=== PATIENT | male | born 1955 | race Caucasian/White ===

== ENCOUNTER 2019-09-24 13:05 | Outpatient (REF) | payer MEDICARE, BC, SELFPAY ==
[2019-09-24 18:54] LABS: Abs Immature Grans 0.01 k/cumm (0.0-0.09); Absolute Basophil Count 0.05 k/cumm (0.0-0.2); Absolute Eosinophil Count 0.19 k/cumm (0.0-0.7); Absolute Lymphocyte Count 1.88 k/cumm (1.2-3.4); Absolute Neutrophil Count 4.57 k/cumm (1.2-6.7); Basophils % 0.7; Eosinophils % 2.6; HCT 45.9 % (40.0-50.0); HGB 15.5 g/dL (13.5-17.5); Immature Grans % 0.1 %; Lymphocytes % 25.8; Mean Corp. HGB Concentration 33.8 g/dL (32.0-36.0); Mean Corpuscular Hemoglobin 30.2 pg (27.0-33.0); Mean Corpuscular Volume 89.5 fL (80-95); Mean Platelet Volume 9.7 fL (8.0-11.0); Monocytes % 8.2; Neutrophils % 62.6; Platelet Count 272 x1000/uL (130-400); RBC 5.13 m/cumm (4.50-6.00); RBC Distribution Width 13.2 % (11.8-14.1)
[2019-09-24 19:11] LABS: Anion Gap 6.7 mmol/L (3-11); BUN 13 mg/dL (7-18); CO2 30.3 mmol/L (21.0-32.0); CREATININE 1.11 mg/dL (0.70-1.30); Calcium 8.7 mg/dL (8.5-10.1); Chloride 101 mmol/L (98-107); Glucose 93 mg/dL (74-106); Potassium 4.5 mmol/L (3.5-5.1); Sodium 138 mmol/L (136-145)
[2019-09-26 10:21] LABS: PSA, Diagnostic 3.5 ng/mL (0.0-4.5)
== END 2019-09-24 13:25 ==
LOC: NCHCN 13:05
PROVIDERS: PCP Physician Assistant Medical; Visit Provider Physician Assistant Medical
DX: R35.0 Frequency of micturition (principal)
CPT/HCPCS: 80048; 84153; 85025; 87086

== ENCOUNTER → 2022-01-24 02:04 | Outpatient (CLI) | payer MEDICARE, BC, SELFPAY ==
--- NOTE | 2022-01-24 | DI.RAD_ITS ---
Exam(s) XR CERVICAL SPINE COMP 4-5V EXAM: XR CERVICAL SPINE COMP 4-5V CLINICAL HISTORY: NUMBNESS AND TINGLING RT ARM, R20.2. TECHNIQUE: 2D digital imaging was performed. COMPARISON: No exams were available for comparison FINDINGS: Seven views: No evidence of fracture or listhesis. No offset of the spinal laminar line. Main finding here is mo derate narrowing of the C6-7 disc space and mild narrowing of the C5-6 disc space. No large Luschka joint osteophytes. No cervical ribs. Mild facet joint degenerative changes. Bone density normal. IMPRESSION: Disc level findings at C6-7 and C5-6, as described above DATA REPOSITORY: RADIATION DOSE DELIVERED:
== END ==
PROVIDERS: PCP Physician Assistant Medical; Visit Provider Physician Assistant Medical
DX: M48.02 Spinal stenosis, cervical region (principal)
CPT/HCPCS: 72050

== ENCOUNTER 2022-05-10 16:50 | Outpatient (REF) | payer MEDICARE, BC, SELFPAY ==
[2022-05-10 19:24] LABS: ALT 32 U/L (16-63); AST 27 U/L (15-37); Albumin 3.9 g/dL (3.4-5.0); Alkaline Phosphatase 73 U/L (46-116); Anion Gap 8.2 mmol/L (3-11); BUN 16 mg/dL (7-18); Bilirubin, Total 0.3 mg/dL (0.2-1.0); CO2 27.8 mmol/L (21.0-32.0); Calculated LDL 96 mg/dL (<100); Chloride 102 mmol/L (98-107); Cholesterol 213 mg/dL (<200); Estimated GFR 82.49 (mL/min/1.73m2); Glucose 89 mg/dL (74-106); HDL Cholesterol 48 mg/dL (40-60); Potassium 3.9 mmol/L (3.5-5.1); Sodium 138 mmol/L (136-145); Total Protein 7.7 g/dL (6.4-8.2); Triglyceride 345 mg/dL (<150)
== END 2022-05-10 16:51 | disposition home or self-care (01) ==
LOC: NCHCN 16:50
PROVIDERS: PCP Physician Assistant Medical; Visit Provider Physician Assistant Medical
DX: Z13.89 Encounter for screening for other disorder (principal)
CPT/HCPCS: 80053; 80061

== ENCOUNTER 2022-08-16 11:29 | Outpatient (REF) | payer MEDICARE, BC, SELFPAY ==
[2022-08-16 16:37] LABS: ALT 39 U/L (16-63); AST 26 U/L (15-37); Albumin 3.9 g/dL (3.4-5.0); Alkaline Phosphatase 68 U/L (46-116); Anion Gap 7.1 mmol/L (3-11); BUN 16 mg/dL (7-18); Bilirubin, Total 0.5 mg/dL (0.2-1.0); CO2 28.9 mmol/L (21.0-32.0); Calcium 9.2 mg/dL (8.5-10.1); Calculated LDL 81 mg/dL (<100); Chloride 104 mmol/L (98-107); Cholesterol 155 mg/dL (<200); Estimated GFR 81.98 (mL/min/1.73m2); Glucose 111 mg/dL (74-106); HDL Cholesterol 53 mg/dL (40-60); Potassium 4.3 mmol/L (3.5-5.1); Sodium 140 mmol/L (136-145); Total Protein 7.4 g/dL (6.4-8.2); Triglyceride 108 mg/dL (<150)
== END 2022-08-16 11:30 | disposition home or self-care (01) ==
LOC: NCHCN 11:29
PROVIDERS: PCP Physician Assistant Medical; Visit Provider Physician Assistant Medical
DX: E78.5 Hyperlipidemia, unspecified (principal)
CPT/HCPCS: 80053; 80061

== ENCOUNTER → 2024-04-29 09:47 | Outpatient (BNVA) | payer MEDICARE, BC, SELFPAY | PROVIDERS: PCP Physician Assistant Medical; Referring Provider Physician Assistant Medical; Visit Provider Surgery | DX: K40.90 Unilateral inguinal hernia, without obstruction or gangrene, not specified as recurrent (principal); D01.3 Carcinoma in situ of anus and anal canal; K21.9 Gastro-esophageal reflux disease without esophagitis | CPT/HCPCS: 99203 ==

== ENCOUNTER 2024-04-29 13:10 | Outpatient (CLI) | payer MEDICARE, BC, SELFPAY ==
[2024-04-29 10:58] LABS: Abs Immature Grans 0.01 10^3/uL (0.0-0.06); Absolute Basophil Count 0.07 10^3/uL (0.0-0.2); Absolute Eosinophil Count 0.21 10^3/uL (0.0-0.7); Absolute Monocyte Count 0.47 10^3/uL (0.1-0.8); Absolute Neutrophil Count 2.33 10^3/uL (1.2-6.7); Basophils % 1.3 %; HCT 45.5 % (40.0-50.0); HGB 15.3 g/dL (13.5-17.5); Immature Grans % 0.2 %; Lymphocytes % 40.5 %; MCH 30.1 pg (27.0-33.0); MCHC 33.6 % (32.0-36.0); MCV 89 fL (80-95); MPV 8.9 fL (8.0-11.0); Monocytes % 9.1 %; Neutrophils % 44.9 %; Platelet Count 266 10^3/uL (130-400); RBC 5.09 10^6/uL (4.36-5.78); RDW 12.7 % (11.8-14.1); WBC 5.19 10^3/uL (4.4-10.8)
[2024-04-29 11:39] LABS: ALT 54 U/L (16-63); AST 32 U/L (15-37); Albumin 3.7 g/dL (3.4-5.0); Alkaline Phosphatase 74 U/L (46-116); Anion Gap 7.8 mmol/L (3-11); BUN 13 mg/dL (7-18); Bilirubin, Total 0.46 mg/dL (0.2-1.0); CO2 29.2 mmol/L (21.0-32.0); CREATININE 0.9 mg/dL (0.70-1.30); Calcium 8.9 mg/dL (8.5-10.1); Chloride 104 mmol/L (98-107); Estimated GFR 92.45 (mL/min/1.73m2); Glucose 103 mg/dL (74-106); Potassium 4.5 mmol/L (3.5-5.1); Sodium 141 mmol/L (136-145); Total Protein 7.5 g/dL (6.4-8.2)
--- OUTSIDE RECORDS SUMMARY | 2024-04-29 13:12 | XMS_ITS | Encounter Summary ---
Author Organization [facility] [place] [address] Care Team Providers Care Dye Reel Operator Helper Name Role Phone Pattie Acosta Primary Care Provider [phone] Reason for Visit * Reason Comments Medication Refill Encounter Details Date Type Department Care Team (Late st Contact Info) Description 06/25/2023 [address] [facility] [address] [place] [id number] Gary Kasper MD [address] [facility] [address] Rosacea Social History Tobacco Use Types Packs/Day Years Used Date Smoking Tobacco: Former Cigarettes Q uit: 2002 Smokeless Tobacco: Never Comments:Quit appox 12 yrs a go Alcohol Use Standard Drinks/Week Comments Yes 1 (1 standard drink = 0.6 oz pur e alcohol) Sex and Gender Information Value Date Recorded Sex Assigned at Not on file Gender Identity Not on file Sexual Orientation Not on file documented as of this encounter Plan of Treatment Upcoming Encounters Date Type Department Care Team (Late st Contact Info) Description 10/18/2024 4:30 PM EDT Office Visit Dermatology at [facility] [address] [place] [address] Gary Kasper MD [address] [place] [address] documented as of this encounter Visit Diagnoses Diagnosis Rosacea documented in this encounter Care Teams Dye Reel Operator Helper Relationship Specialty Start Date End Date Pattie Acosta PA [address] [place] [address] PCP - General Family Medicine 01/25/21 documented as of this encounter
--- OUTSIDE RECORDS SUMMARY | 2024-04-29 13:12 | XMS_ITS | Encounter Summary ---
Author Organization [facility] Address [address] [place] [address] Care Team Providers Care Striping Machine Operator Name Role Phone Hany Foote MD Primary Care Provider [phone] Encounter Details Date Type Department Care Team (Late st Contact Info) Description 07/14/2015 Results Only [facility] [phone] Asael Parada MD [address] [place] [phone] Social History Tobacco Use Types Packs/Day Years Used Date Smoking Tobacco: Never Assessed Sex and Gender Information Value Date Recorded Sex Assigned at Not on file Legal Sex Male 18:31 EST Gender Identity Not on file Sexual Orientation Not on file documented as of this encounter Plan of Treatment Not on file documented as of this encounter Procedures Procedure Name Priority Date/Time Associated Diagnosis Comments PAP TEST- RESULT ONLY Routine 07/13/2015 0:00 EST documented in this encounter Results * PAP TEST- RESULT ONLY (07/13/2015 0:00 EST) Pathology Report: CYTOPATHOLOGY REPORT Reports generated via electronic interface contain original data; however they are lacking the format of the original report. Caution should be taken when reading/interpret ing unformatted reports. Name: ? ED CARRASCO ? Accession #: ? [id number] : ? 1955 (Age: 60) ??M ?Collect Date: ? 07/13/2015 Location: ? [facility] ? Receive Date: ? 07/14/2015 Provider: ?ASAEL PARADA MD Copy to: ? Specimen/Source: ?Pap Test, Anal, ThinPrep with manual evaluation Last Menstrual Period: ? Other: ? Additional clinical information: Anal and Rectal Swab ? SPECIMEN ADEQUACY ? Satisfactory for Evaluation - transformation zone component present GENERAL CATEGORIZATION ? Epithelial Cell Abnormality INTERPRETATION ? Squamous Cell Abnormality - Atypical squamous cells, undetermined significance (ASC-US). ? Document reviewed and electronically signed by: ? SHELLIE JASSO MD ? Report Date: ??07/16/2015 17:06 End of Report [facility] 07/13/2015 07/14/2015 us Asael Parada MD PATHOLOGY ORDERABLES Final Result Performing Organization Address [facility]/State/[facility] Co de Phone Number [facility] [address] [place] [address] documented in this encounter Visit Diagnoses Not on filedocumented in this encounter Care Teams Striping Machine Operator Relationship Specialty Start Date End Date Hany Foote MD [address] [place] [address] PCP - General 12/25/12 07/14/15 documented as of this encounter
--- OUTSIDE RECORDS SUMMARY | 2024-04-29 13:12 | XMS_ITS | Encounter Summary ---
Author Organization [facility] Address [address] [place] [address] Care Team Providers Care Investigator Claims Name Role Phone Unavailable Primary Care Provider Unavailabl e Encounter Details Date Type Department Care Team (Late st Contact Info) Description 12/30/2003 Results Only [facility] [address] [place] [address] Jame Joyce MD [address] [place] [address] Social History Tobacco Use Types Packs/Day Years [...] Procedure Name Priority Date/Time Associated Diagnosis Comments SURGICAL PATHOLOGY Routine 12/30/2003 0:00 EDT documented in this encounter Results * SURGICAL PATHOLOGY (12/30/2003 0:00 EDT) Pathology Report: SURGICAL PATHOLOGY REPORT Reports generated via electronic interface contain original data; however they are lacking the format of the original report. Caution should be taken when reading/interpreti ng unformatted reports. Name: ? ED CARRASCO ? Accession #: ? [id number] ? : ? 1955 (Age: 48) ??M ? Collect Date: ? 12/30/2003 ? Location: ? [facility] ? Receive Date: ? 12/30/2003 ? Provider: KAY JOYCE MD Copy to: MAZIN LANDRY MD ? Final Pathologic Diagnosis: ? Anal verge, clinically internal hemorrhoid, biopsies: 1. 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 ? - No definite invasion identified. ??See comment. 2. ?Focal mild acute inflammation. 3. ?No definite hemorrhoid identified. Comment: ? The biopsy material shows dysplastic squamous mucosa with a papillary architecture. ??The biopsy material is very superficial and the base of the lesion cannot be assessed in this specimen. ??This case was reviewed by Dr. Mansoor Robb who concurs with the final diagnosis. ??(Dr. Buckley)/[facility] Document reviewed and electronically signed by: MANSOOR BUCKLEY MD Report ??Date: 12/31/2003 17:37 By the signature above, the attending physician certifies that he/she has personally conducted a gross and/or microscopic examination of the described specimens and rendered or confirmed the above diagnosis. Specimen(s) Received: ? Int hemorrhoid @ anal verge Clinical History: ? Diverticulitis Gross Description: ? Received in Hollande's fixative labelled Carrasco and internal hemorrhoid at anal verge are two johnson-pink irregular soft tissue fragments measuring 0.3 x 0.2 x 0.1 cm and 0.3 x 0.3 x 0.3 cm. ??The specimen is entirely submitted in one cassette. (Cheyanne Concepcion)/[facility] End of Report [facility] 12/30/2003 12/30/2003 15: 17 EDT us Jame Joyce MD PATHOLOGY ORDERABLES Final Res ult [facility] [address] [place] [address] documented in this encounter Visit Diagnoses Not on filedocumented in this encounter
--- OUTSIDE RECORDS SUMMARY | 2024-04-29 13:12 | XMS_ITS | Encounter Summary ---
Author Organization [facility] Address [address] [place] [address] Care Team Providers Care Depalletizer Operator Name Role Phone Unavailable Primary Care Provider Unavailabl e Encounter Details Date Type Department Care Team (Late st Contact Info) Description 11/07/2002 Results Only [facility] [address] [place] [address] Hany Foote MD [address] [place] [address] Social History Tobacco Use Types Packs/Day Years [...] Date/Time Associated Diagnosis Comments SURGICAL PATHOLOGY Routine 11/07/2002 0:00 EDT documented in this encounter Results * SURGICAL PATHOLOGY (11/07/2002 0:00 EDT) Pathology Report: SURGICAL PATHOLOGY REPORT Reports generated via electronic interface contain original data; however they are lacking the format of the original report. Caution should be taken when reading/interpreti ng unformatted reports. Name: ? ED CARRASCO ? Accession #: ? [id number] ? : ? 1955 (Age: 47) ??M ? Collect Date: ? 11/07/2002 ? Location: ? [facility] ? Receive Date: ? 11/08/2002 ? Provider: HANY FOOTE MD Copy to: BILL EMERSON MD ? Final Pathologic Diagnosis: ? Skin of neck, left, shave biopsy: - Seborrheic keratosis, pigmented. Document reviewed and electronically signed by: Hola Castro MD Report ??Date: 11/12/2002 14:28 By the signature above, the attending physician certifies that he/she has personally conducted a gross and/or microscopic examination of the described specimens and rendered or confirmed the above diagnosis. Specimen(s) Received: ? Lesion left neck ??new pigmented, smooth, round lesion Clinical History: ? Benign nevus; ? melanoma Gross Description: ? Received in formalin labelled Carrasco and mole L neck is a 0.4 x 0.3 x 0.1 cm shave biopsy of a black macule. The specimen is bisected and submitted entirely in one cassette. ??(Dr. Crater)/[facility] End of Report [facility] 11/07/2002 11/08/2002 15: 15 EDT us Hany Foote MD PATHOLOGY ORDERABLES Final Res ult [facility] [address] [place] [address] documented in this encounter Visit Diagnoses Not on filedocumented in this encounter
--- OUTSIDE RECORDS SUMMARY | 2024-04-29 13:12 | XMS_ITS | Referral Summary ---
Author Organization [facility] Address [address] [place] [address] Care Team Providers Care Product Manager Name Role Phone None, Provider Primary Care Provider Unavailabl e Social History Tobacco Use Types Packs/Day Years Used Date Smoking Tobacco: Never Assessed Sex and Gender Information Value Date Recorded Sex Assigned at Not on file Legal Sex Male 18:31 EST Gender Identity Not on file Sexual Orientation Not on file Plan of Treatment Not on file Care Teams Product Manager Relationship Specialty Start Date End Date None, Provider PCP - General 07/17/15
--- OUTSIDE RECORDS SUMMARY | 2024-04-29 13:12 | XMS_ITS | Encounter Summary ---
Author Organization [facility] Address [address] [place] [address] Care Team Providers Care Street And Building Decorator Name Role Phone Unavailable Primary Care Provider Unavailabl e Encounter Details Date Type Department Care Team (Late st Contact Info) Description 12/24/2012 Results Only [facility] ([facility]) [address] [place], [place] [address] Kuldeep Vegas MD [address] [place] [address] Social History Tobacco Use Types Packs/Day Years [...] Date/Time Associated Diagnosis Comments SURGICAL PATHOLOGY Routine 12/24/2012 20 :22 EDT documented in this encounter Results * SURGICAL PATHOLOGY (12/24/2012 20:22 EDT) Pathology Report: SURGICAL PATHOLOGY REPORT Reports generated via electronic interface contain original data; however they are lacking the format of the original report. Caution should be taken when reading/interpreti ng unformatted reports. Name: ? ED CARRASCO ? Accession #: ? [id number] ? : ? 1955 (Age: 57) ??M ? Collect Date: ? 12/24/2012 ? Location: ? [facility] ? Receive Date: ? 12/24/2012 ? Provider: KULDEEP VEGAS MD Copy to: MAZIN LANDRY MD ? Final Pathologic Diagnosis: ? A. COLON, CECUM, POLYP, POLYPECTOMY: - ??Polypoid colonic mucosa with prominent lymphoid aggregate. See comment. B. COLON, ASCENDING, POLYP, POLYPECTOMY: - ??Tubular adenoma. C. COLON, SIGMOID, POLYPS, POLYPECTOMIES: - ??Hyperplastic polyps. Comment: ? Deeper sections are examined on blocks (A) and (B). Document reviewed and electronically signed by: JONNY CORRALES MD Report ??Date: 12/27/2012 16:39 By the signature above, the attending physician certifies that he/she has personally conducted a gross and/or microscopic examination of the described specimens and rendered or confirmed the above diagnosis. Specimen(s) Received: A. ??Cecal polyp (#1) B. ??Ascending colon polyp (#2) C. ??Sigmoid polyps x7 (#3) Clinical History: Screen Gross Description: A. ? Received in formalin labelled with proper patient identification (initials C, S) and 1. cecal polyp is a johnson-pink irregular soft tissue fragment measuring 0.5 x 0.2 x 0.2 cm. ??The specimen is entirely as A1. B. ? Received in formalin labelled with proper patient identification (initials C, S) and 2. ascending colon polyp is a johnson-pink irregular soft tissue fragment measuring 0.4 x 0.3 x 0.2 cm. ??The specimen is entirely submitted as B1. C. ? Received in formalin labelled with proper patient identification (initials C, S) and 3. sigmoid polyps x7 are seven johnson-pink irregular soft tissue fragments ranging from 0.3 x 0.2 x 0.1 cm to 0.7 x 0.3 x 0.1 cm. ??The specimen is entirely submitted as C1-C3. [place] Bailey 12/25/2012 09:05 AM End of Report [facility] 12/24/2012 20:2 2 EDT 12/24/2012 20:22 EDT us Kuldeep Vegas MD PATHOLOGY ORDERABLES Final Resul t [facility] [address] [place] [address] documented in this encounter Visit Diagnoses Not on filedocumented in this encounter
--- OUTSIDE RECORDS SUMMARY | 2024-04-29 13:12 | XMS_ITS | Clinical Summary ---
Author Organization [facility] [place] [address] Care Team Providers Care Weatherization And Housing Inspector Name Role Phone Pattie Acosta Primary Care Provider [phone] Allergies Active Allergy Reactions Criticality Noted Date Comments Oxycodone-Acetaminophen Nausea Only 04/30/2012 Sulfa (Sulfonamide Antibiotics) Other (See Comments) 04/25/2011 swelling Tamsulosin Other (See Comments) 02/03/2020 Lightheadedness Hydrocodone-Acetaminoph en Nausea And Vomiting Medium 07/15/2015 Medications Medication Sig Dispensed Refills Start Date End Date Status multivitamin (THERAGRAN) tablet Take 1 tablet by mouth daily. Active aspirin 81 mg Tablet, Delayed Release (E.C.) Take 81 mg by mouth daily. Active buPROPion SR (Wellbutrin SR) 200 mg tablet sustained-release 12 hr Take 200 mg by mouth 2 times daily. Active doxycycline (Vibramycin) 50 mg capsuleIndications:R osacea Take 1 capsule po daily on a full stomach and with a glass of water and do not lay down for 30 min. 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 Overview (02/03/2020): Added automatically from request for surgery [id number] Seborrheic dermatitis 11/23/2015 History of melanoma in situ 11/23/2015 Psoriasis 11/23/2015 Neck mass 2015 Acne rosacea 09/15/2014 History of atypical nevus 04/30/2012 Atypical moles 04/25/2011 Overview (03/16/2012): Deactivated Dx replaced via utility Rosacea 04/25/2011 Family History Medical History Relation Comments Heart Disease Mother Diabetes Other Relation Status Comments Mother Other Social History Tobacco Use Types Packs/Day Years [...] on file Sexual Orientation Not on file Last Filed Vital Signs Vital Sign Reading Time Taken Comments Blood Pressure 124/78 02/19/2020 9:24 AM EDT Pulse 64 02/19/2020 9:24 AM EDT Temperature 36 ??C (96.8 ??F) 02/19/2020 8:49 AM EDT Respiratory Rate 20 02/19/2020 9:24 AM EDT Oxygen Saturation 98% 02/19/2020 9:01 AM EDT Inhaled Oxygen Concentration - - Weight 79.4 kg (175 lb) 02/19/2020 7:15 AM EDT Height 175.3 cm (5' 9) 02/19/2020 7:15 AM EDT Body Mass Index 25.84 02/19/2020 7:15 AM EDT Plan of Treatment Upcoming Encounters Date Type Department Care Team (Late st Contact Info) Description 10/18/2024 4:30 PM EDT Office Visit Dermatology at [facility] [address] [place] [id number] Gary Kasper MD [address] [facility] [place] [address] Health Maintenance Due Date Last Done Comments CT Colonography 1955 FIT DNA 1955 FIT 1955 Sigmoidoscopy 1955 Hepatitis C Screening 1972 Lipid Screening 1972 Tetanus/Diphtheria/Pertussis Vaccines (1 - Tdap) 1973 Zoster vaccine (1 of 2) 2004 AAA Screen 2019 Pneumoccocal Vaccine: 65+ (1 of 1 - PCV) 2019 Covid-19 Vaccine (1 - season) 2024 Influenza (Flu) vaccine (1 o f 1 - Influenza standard series) 02/18/2024 Colonoscopy 03/05/2028 03/05/2018, 03/05/2018 Colorectal Cancer Screening 03/05/2028 Sigmoidoscopy (10 year) with FIT yearly 03/05/2028 0 03/05/2018, 03/05/2018 Medical Devices Implanted Type Area Image Assembler Device Identifier Shelf Expiration Date Model / Serial / Lot Urolift Implanted:Qty: 6 on 02/19/2020 by Nas Gutierres MD at [facility] N/A: Urethra [id number] / / [id number] Description:Manufactured by [employer]-Match Procedures Procedure Name Priority Date/Time Associated Diagnosis Comments COLONOSCOPY Routine 03/05/2018 9:43 AM EDT from Last 3 Months or Most Recently Relevant to Health Maintenance Results * COLONOSCOPY (03/05/2018 9:43 AM EDT) COLONOSCOPY [facility] Procedure Date: 03/05/2018 9:43 AM ? Patient Name: Ed Carrasco ? Date of : 1955 ? Age: 62 ? Order #: [id number] ? Instrument Name: [id number] ? Procedure: ? Colonoscopy Indications: ? Follow-up for history of adenomatous ? polyps in the colon Providers: ? Ed Shah MD, Sherri Marte, ? Beth Garza Referring : ?NELSON Bull Medicines: ? Midazolam 4 mg IV, Fentanyl 200 ? micrograms IV Complications: ? No immediate complications. Procedure: ? The procedure, indications, benefits, ? risks and alternatives were explained ? to the patient. Specifically ? discussed were potential ? complications including, but not ? limited to, bleeding, perforation, ? infection, missing a cancer, and ? adverse medication reactions. The ? patient was placed in the left ? lateral decubitus position, and a ? digital rectal exam was performed. ? The Colonoscope was inserted in the ? anus and under direct visualization, ? advanced to the terminal ileum. ? Careful inspection was made as the ? colonoscope was withdrawn. The ? colonoscopy was performed without ? difficulty. The patient tolerated the ? procedure well. The quality of the ? bowel preparation was evaluated using ? the BBPS ([place] Bowel Preparation ? Scale) with scores of: Right Colon = ? 3, Transverse Colon = 3 and Left ? Colon = 3 (entire mucosa seen well ? with no residual staining, small ? fragments of stool or opaque liquid). ? The total BBPS score equals 9. Scope ? withdrawal time was 13 minutes. ? Findings: ? The perianal and digital rectal examinations were ? normal. ? Multiple small and large-mouthed diverticula were ? found in the sigmoid colon, descending colon, ? transverse colon and ascending colon. ? The terminal ileum appeared normal. ? A 6 mm polyp was found in the rectum. The polyp was ? flat. The polyp was removed with a cold snare. ? Resection and retrieval were complete. ? Internal hemorrhoids were found during retroflexion. ? The hemorrhoids were medium-sized. ? Moderate Sedation: ? I was present during the intraservice time as ? documented by the sedation RN. Impression: ?- Diverticulosis in the sigmoid ? colon, in the descending colon, in ? the transverse colon and in the ? ascending colon. ? - The examined portion of the ileum ? was normal. ? - One 6 mm polyp in the rectum, ? removed with a cold snare. Resected ? and retrieved. ? - Internal hemorrhoids. Recommendation: ?- Await pathology results. ? Attending Participation: ? I personally performed the entire procedure. ? _ Ed Shah MD 03/05/2018 10:39:04 AM This report has been signed electronically. Number of Addenda: 0 Note Initiated On: 03/05/2018 9:43 AM PROVATION 03/05/2018 9:43 AM EDT Unknown GENERAL SURGICAL ORD ERABLES PROVATION from Last 3 Months or Most Recently Relevant to Health Maintenance Advance Directives Documents on File Type Date Recorded Patient Sales Correspondence Clerk Expl anation Advance Directives and Livin g Will 09/01/2015 2:13 PM * Full Code (Latest Code Status on File) Date Activated Date Inactivated Comments 08/31/2015 8:10 AM 08/31/2015 2:07 PM Question Answer Comments Does patient have capacity to make decision: Yes * Full Code Date Activated Date Inactivated Comments 07/15/2015 2:00 PM 07/16/2015 4:34 AM Question Answer Comments Does patient have capacity to make decision: Yes Healthcare Agents on File Name Relationship Healthcare Agent Relationshi p Communication Wan Carrasco Sibling Health Care Agent Son Carrasco Sibling First Alternate Health Care Agent Care Teams Weatherization And Housing Inspector Relationship Specialty Start Date End Date Pattie Acosta PA [address] [place] [address] PCP - General Family Medicine 01/25/21
--- OUTSIDE RECORDS SUMMARY | 2024-04-29 13:12 | XMS_ITS | Encounter Summary ---
[facility] [place] [address] Care Team Providers Care Sales Officer Name Role Phone Pattie Acosta Primary Care Provider +1- [phone] Reason for Visit * Reason Onset Date Comments Medication Refill 06/29/2023 Encounter Details Date Type Department Care Team (Late st Contact Info) Description 06/29/2023 Refill Dermatology at [facility] [address] [place] [address] Gary Kaspre MD [address] [facility] [place] [address] Rosacea Social History Tobacco Use Types Packs/Day [...] 4:30 PM EDT Office Visit Dermatology at [facility] [address] [place] [address] Gary Kasper MD [address] [facility] [place] [address] documented as of this encounter Visit Diagnoses Diagnosis Rosacea documented in this encounter Care Teams Sales Officer Relationship Specialty Start Date End Date Pattie Acosta PA [address] [place] [address] PCP - General Family Medicine 01/25/21 documented as of this encounter
--- OUTSIDE RECORDS SUMMARY | 2024-04-29 13:12 | XMS_ITS | Encounter Summary ---
[place] [address] Care Team Providers Care Warranty Manager Name Role Phone Pattie Acosta Primary Care Provider +1- [phone] Encounter Details Date Type Department Care Team (Late st Contact Info) Description 06/29/2023 Telephone Dermatology at [facility] [address] [place] [address] Gary Kasper MD [address] [facility] [address] Social History Tobacco Use Types Packs/Day Years [...] on file documented as of this encounter Miscellaneous Notes * Telephone Encounter - Fannie Moore - 06/29/2023 1:22 PM EST Sajan called today stating that there is an issue with his doxycycline rx at [facility] in [facility]. The pharmacy is telling him that he has no refills, although the rx was sent on 02/27 with 6 refills. Please f/u with [facility] to see if rx needs to be resent. documented in this encounter Plan of Treatment Upcoming Encounters Date Type Department Care Team (Late st Contact Info) Description 10/18/2024 4:30 PM EDT Office Visit Dermatology at [facility] [address] [place] [address] Gary Kasper MD [address] [facility] [address] documented as of this encounter Visit Diagnoses Not on filedocumented in this encounter Care Teams Warranty Manager Relationship Specialty Start Date End Date Pattie Acosta PA [address] [place] [address] PCP - General Family Medicine 01/25/21 documented as of this encounter
--- OUTSIDE RECORDS SUMMARY | 2024-04-29 13:12 | XMS_ITS | Encounter Summary ---
Author Organization [facility] [place] [address] Care Team Providers Care Filler Block Inserter Remover Name Role Phone Pattie Acosta Primary Care Provider +1- [phone] Encounter Details Date Type Department Care Team (Late st Contact Info) Description 02/27/2023 3:30 PM EDT Office Visit Dermatology at [facility] [address] [place] [address] Gary Kasper MD [address] [facility] [place] [address] Rosacea; Seborrheic dermatitis; Solar lentigo; Seborrheic keratosis; Herrera angioma; Multiple benign melanocytic nevi of both upper extremities, both lower extremities, and trunk; Sebaceous hyperplasia of face; History of squamous cell carcinoma of skin; History of melanoma in situ Social History Tobacco Use Types Packs/Day Years [...] on file documented as of this encounter Progress Notes * Gary Kasper MD - 02/27/2023 3:30 PM EDT Images from the original note were not included. DEPARTMENT OF DERMATOLOGY Medical Dermatology Clinic Provider: Gary Kasper MD FAAD at Dermatology at [facility] Patient's preferred name Ed Preferred contact method for results [x] with detailed results? 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 BCC -- [place] [] cryotherapy [] efudex [] PDT [] Other Relevant Medications [] Immunosuppression [] Transplant [] Oncogenic medication [] Nicotinamide 500mg po bid Rosacea Curr: doxycycline 50mg daily Prev: Sulfacet (blistered his forehead), Metrogel, Hydrocortisone 1%, Clindamycin, Metronidazole 500mg BID x 10 days, Ketoconazole 2% cream). 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 Last seen 05/10/2022. History of Present Illness: Ed Carrasco is 67 y.o. and here for the following: Requests skin cancer screening. No suspicious lesions History of rosacea currently controlled with doxycycline 50mg po daily. Tolerating well. Requests refill. No known recurrence of previous skin cancer. Review of Systems: Significant for no pertinent and acute changes in constitutional, other skin, GI, musculoskeletal systems upon specific queries. Medications: Reviewed in eD-H Allergies: Reviewed in eD-H Skin Examination Standby: Tanika Noonan RN Well developed, well-nourished in no apparent distress, alert and oriented to time, person, place and situation. Patient was asked to disrobe to the level of comfort. Examination of the skin of the head - including the scalp, face, ears, eyelids, nose, lips, tongue,oral/conjunctival mucosa - neck, chest, abdomen, back, axillae, buttocks, pubic area, upper and lower extremities, including the nail plates, significant for the following. Exam Findings/Assessment/Plan Rosacea [place] to red lesions on the cheeks and nose. Previously failed multiple topical and oral regimens. Continue doxycycline Discussed clinical recommendation as above.. Discussed major risks of doxycycline including sun sensitivity and GI upset. Answered all questions. Joint decision to continue doxycycline. Continue doxycycline 50 mg p.o. daily. Take on a full stomach and with a glass of water and do not lie down for 30 minutes if he starts to develop GI symptoms with use. Reviewed major risks of doxycycline including GI upset and sensitivity to sun. Lentigines Multiple, uniformly johnson, slightly irregular, polygonal macules c/w lentigos on sun-exposed areas ofskin Benign. Counseled: lentigines, sun damage and spontaneous development, rare risk of lentigo maligna (melanoma arising in a lentigo), sun protection, no treatment necessary but discussed cosmetic options, including topical bleaching agents, as well as chemical peels and lasers. Answered all questions. Handout given. Herrera Angiomas Herrera red papules on the neck, trunk, and extremities Counseled: herrera angiomas. Benign. No treatment necessary unless symptoms develop. Treatment considered cosmetic and irq-sd-sasytl. Treatment options, including but not limited to electrocautery, discussed. Handout given. Nevi Well-demarcated, round or oval, johnson or brown macules and papules with benign morphology on the head, trunk, and extremities Morphology reassuring for benign nevi. Counseled: Nevi and risks for melanoma arising in a nevus. Recommend regular self-examinations. Answered all questions. Reviewed ABCDEs of melanoma, as below. Return to clinic as needed for changes in color, size, shape or thickness or should bleeding or other symptoms occur. Patient agrees to plan. Seborrheic Keratoses Scattered, stuck-on, well-demarcated, johnson or brown, waxy or warty papules c/w SKs on the head, trunk, and extremities Benign. No treatment necessary. Counseled: SKs, benign, treatment options for symptomatic lesions. Answered all questions. Handout given. Sebaceous Gland Hyperplasia Yellow-hued, cauliflower-like umbilicated papules c/w sebaceous hyperplasia on the face Counseled: benign growths of sebaceous glands (hair follicle unit) that harbor a rare risk of sebaceous carcinoma, and treatment options, including but not limited to topical retin-a, light electrocautery, or laser therapy. Cosmetic treatment and therefore, likely qpg-dw-[id number] expense. Handout given. Answered all questions. Patient declines treatment at this time. Return to clinic if changes in color, enlarges, or should bleeding or other symptoms occur. Patientagrees to plan. Seborrheic Dermatitis Nothing active on exam Continue ketoconazole shampoo. Answered all questions. Patient elects treatment with ketoconazole shampoo, will call when he wouldlike this sent. Rx: Ketoconazole Shampoo Lather and let sit for 5-10 minutes, then rinse, patient will call when hewould like this sent History of Skin Cancer No clinical evidence of recurrence in scars, as listed above Recommend regular evaluation of scars Return to clinic if suspect recurrence. Patient agrees to plan. Patient Counseled [Skin Cancer] [x] History of skin cancer [] History of immunosuppression [] History of extensive sun exposure [] Family history of skin cancer Counseled: recommend sun protection, regular self skin exams, provider skin exams every 12 months, and the ABCDEs of melanoma/NMSC. Answered all questions. Handouts on how to do a self-exam, skin cancers and sun protection/recommended OTC sunscreens given to the patient. Joint decision for skin cancer screening in 12 months. Regular full body self examinations and return to clinic for new suspicious lesions or if changes/symptoms in existing lesions develop. Follow-up: 1 year for a skin cancer screening. Return sooner as needed for suspicious lesion, new or worsening dermatitis. [] Recall placed [] Forwarded to sheriff's sergeant [] Patient scheduled before exiting Scribe attestation: Tanika Noonan RN has performed the documentation for this encounter in the presence of and acting as a scribe for MD JOSE M Manuel. I performed the above scribed service and agree with the accuracy of the documentation in this encounter. Reviewed and signed by: MD JOSE M Manuel Dermatology [facility] documented in this encounter Plan of Treatment Upcoming Encounters Date Type Department Care Team (Late st Contact Info) Description 10/18/2024 4:30 PM EDT Office Visit Dermatology at [facility] [address] [place] [address] Gary Kasper MD [address] [facility] [place] [address] documented as of this encounter Visit Diagnoses Diagnosis Rosacea Seborrheic dermatitis Seborrheic dermatitis, unspecified Solar lentigo Other dyschromia Seborrheic keratosis Other seborrheic keratosis Herrera angioma Nevus, non-neoplastic Multiple benign melanocytic nevi of both upper extremities, both lower extremities, and trunk Sebaceous hyperplasia of face Other specified disease of sebaceous glands History of squamous cell carcinoma of skin Personal history of other malignant neoplasm of skin History of melanoma in situ Personal history of malignant melanoma of skin documented in this encounter Care Teams Filler Block Inserter Remover Relationship Specialty Start Date End Date Pattie Acosta PA [address] [place] [address] PCP - General Family Medicine 01/25/21 documented as of this encounter
--- OUTSIDE RECORDS SUMMARY | 2024-04-29 13:12 | XMS_ITS | Encounter Summary ---
Author Organization [facility] Address [address] [place] [address] Care Team Providers Care Bridges Supervisor Name Role Phone Unavailable Primary Care Provider Unavailabl e Encounter Details Date Type Department Care Team (Late st Contact Info) Description 10/05/2004 Results Only [facility] - Maple conversion [address] [place] [address] Jame Joyce MD [address] [place] [address] Social History Tobacco Use Types Packs/Day Years [...] Date/Time Associated Diagnosis Comments SURGICAL PATHOLOGY Routine 10/05/2004 0:00 EDT documented in this encounter Results * SURGICAL PATHOLOGY (10/05/2004 0:00 EDT) Pathology Report: SURGICAL PATHOLOGY REPORT Reports generated via electronic interface contain original data; however they are lacking the format of the original report. Caution should be taken when reading/interpreti ng unformatted reports. Name: ? ED CARRASCO ? Accession #: ? [id number] ? : ? 1955 (Age: 49) ??M ? Collect Date: ? 10/05/2004 ? Location: ? [facility] ? Receive Date: ? 10/05/2004 ? Provider: KAY JOYCE MD Copy to: MAZIN LANDRY MD ? Final Pathologic Diagnosis: ? Rectum, biopsy: 1. ?Fragment of hyperplastic polyp. 2. ?No anal mucosa or dysplasia identified. ??See comment. Comment: ? Clinical correlation with origin of the original biopsy ([id number]) is recommended. ??(Dr. Buckley)/[facility] Document reviewed and electronically signed by: BILL BUCKLEY MD Report ??Date: 10/06/2004 19:41 By the signature above, the attending physician certifies that he/she has personally conducted a gross and/or microscopic examination of the described specimens and rendered or confirmed the above diagnosis. Specimen(s) Received: ? Bx of rectum Clinical History: ? Rectal lesion, ? lymphoid aggregate; see [id number] Gross Description: ? Received in Hollande's fixative labelled Carrasco and bx of rectum is an irregular, 0.1 x 0.1 x 0.1 cm, johnson-pink soft tissue submitted in toto in one cassette. ??([place] Bullard)/[facility] End of Report GANESH CARO 10/05/2004 10/05/2004 14: 54 EDT us Jame Joyce MD PATHOLOGY ORDERABLES Final Res ult GANESH CARO [address] [place] [address] documented in this encounter Visit Diagnoses Not on filedocumented in this encounter
--- OUTSIDE RECORDS SUMMARY | 2024-04-29 13:12 | XMS_ITS | Encounter Summary ---
Author Organization [facility] [place] [address] Care Team Providers Care Rehabilitation Director Name Role Phone Pattie Acosta Primary Care Provider [phone]- [phone] Encounter Details Date Type Department Care Team (Latest Contact Info) Description 02/20/2023 Travel Social History Tobacco Use Types Packs/Day Years [...] 4:30 PM EDT Office Visit Dermatology at [address] [place] [address] Gary Kasper MD [address] [facility] [address] documented as of this encounter Visit Diagnoses Not on filedocumented in this encounter Care Teams Rehabilitation Director Relationship Specialty Start Date End Date Pattie Acosta PA [address] [place] [address] PCP - General Family Medicine 01/25/21 documented as of this encounter
--- OUTSIDE RECORDS SUMMARY | 2024-04-29 13:12 | XMS_ITS | Encounter Summary ---
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 HYPERPLASTIC Pattie Acosta PA [address] [place] [address] [facility] End[facility] [address] [place] [address] Referral ID Status Reason Start Date Expiration Date Visits Requested Visits Authorized [id number] Authorized Test Only PCP Updated and/or Approved 3 05/04/2024 1 1 Encounter Details Date Type Department Care Team (Latest Contact Info) Description 05/05/2023 Transcribe Orders eDH Incoming Referrals [phone] Pattie Acosta PA [address] [place] [address] Screening for unspecified condition Social History Tobacco Use Types Packs/Day Years [...] 4:30 PM EDT Office Visit Dermatology at [facility] [address] [place] [address] Gary Kasper MD [address] [facility] [place] [address] Scheduled Referrals Name Type Priority Associated Diagnoses Orde r Schedule REFERRAL TO COLONOSCOPY PROCEDURE Outpatient Referral Routine Screening for unspecified condition Ordered: 05/05/2023 documented as of this encounter Visit Diagnoses Diagnosis Screening for unspecified condition documented in this encounter Care Teams Commercial Loan Coordinator Relationship Specialty Start Date End Date Pattie Acosta PA [address] [place] [address] PCP - General Family Medicine 01/25/21 documented as of this encounter
--- OUTSIDE RECORDS SUMMARY | 2024-04-29 13:12 | XMS_ITS | Clinical Summary ---
Author Organization [facility] Address [address] [place] [address] Care Team Providers Care Roller Shop Utility Worker Name Role Phone None, Provider Primary Care Provider Unavailabl e Social History Tobacco Use Types Packs/Day Years Used Date Smoking Tobacco: Never Assessed Sex and Gender Information Value Date Recorded Sex Assigned at Not on file Legal Sex Male 18:31 EST Gender Identity Not on file Sexual Orientation Not on file Plan of Treatment Health Maintenance Due Date Last Done Comments Hepatitis C Screen 1955 RSV Immunization ( o r 60+ Years) (1 - 1-dose 60+ series) 2014 Fall Risk Screening 2019 COVID-19 Vaccine (2022-24 season) 2023 Care Teams Roller Shop Utility Worker Relationship Specialty Start Date End Date None, Provider PCP - General 07/17/15
--- OUTSIDE RECORDS SUMMARY | 2024-04-29 13:12 | XMS_ITS | Encounter Summary ---
Author Organization [facility] Address [address] [place] [address] Care Team Providers Care Parlor Chaperone Name Role Phone Hany Foote MD Primary Care Provider [phone] Encounter Details Date Type Department Care Team (Late st Contact Info) Description 07/13/2015 Results Only [facility] [phone] Asael Parada MD [address] [place] [address] Social History Tobacco Use Types Packs/Day [...] Date/Time Associated Diagnosis Comments SURGICAL PATHOLOGY Routine 07/13/2015 8:13 EST documented in this encounter Results * SURGICAL PATHOLOGY (07/13/2015 8:13 EST) Pathology Report: SURGICAL PATHOLOGY REPORT Reports generated via electronic interface contain original data; however they are lacking the format of the original report. Caution should be taken when reading/interpreti ng unformatted reports. Name: ? ED CARRASCO ? Accession #: ? [id number] ? : ? 1955 (Age: 60) ??M ? Collect Date: ? 07/13/2015 ? Location: ? [facility] ? Receive Date: ? 07/13/2015 ? Provider: ASAEL PARADA MD Copy to: ? Final Pathologic Diagnosis: RECTUM, POLYP, BIOPSY: - Hyperplastic polyp. Document reviewed and electronically signed by: XOCIHTL CAR MD Report ??Date: 07/15/2015 08:32 By the signature above, the attending physician certifies that he/she has personally conducted a gross and/or microscopic examination of the described specimens and rendered or confirmed the above diagnosis. 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 Received in formalin labelled with proper patient identification (initials C, S) and rectal polyp is a single pink-johnson tissue fragment (0.4 x 0.2 x 0.2 cm). Submitted intact in block 1. Mayelin Gillespie 07/14/2015 8:44 AM End of Report [facility] 07/13/2015 8:13 EST 07/13/2015 8:13 EST us Asael Parada MD PATHOLOGY ORDERABLES Final Result Performing Organization Address City/State/[facility] Co de Phone Number [facility] [address] [place] [address] documented in this encounter Visit Diagnoses Not on filedocumented in this encounter Care Teams Parlor Chaperone Relationship Specialty Start Date End Date Hany Foote MD [address] [place] [address] PCP - General 12/25/12 07/14/15 documented as of this encounter
--- OUTSIDE RECORDS SUMMARY | 2024-04-29 13:12 | XMS_ITS | Encounter Summary ---
Author Organization [facility] [place] [address] Care Team Providers Care Instructor Extension Work Name Role Phone Pattie Acosta Primary Care Provider [phone]- [phone] Encounter Details Date Type Department Care Team (Latest Contact Info) Description 02/27/2023 Travel Social History Tobacco Use Types Packs/Day [...] Visit Dermatology at [address] [place] [address] Gary Kasper MD [address] [facility] [address] documented as of this encounter Visit Diagnoses Not on filedocumented in this encounter Care Teams Instructor Extension Work Relationship Specialty Start Date End Date Pattie Acosta PA [address] [place] [address] PCP - General Family Medicine 01/25/21 documented as of this encounter
--- OUTSIDE RECORDS SUMMARY | 2024-04-29 13:12 | XMS_ITS | Encounter Summary ---
Author Organization [facility] Address [address] [place] [address] Care Team Providers Care Fireproof Door Assembler Name Role Phone Hany Foote MD Primary Care Provider [phone] Encounter Details Date Type Department Care Team (Latest Contact Info) Description 07/13/2015 10:48 EST - 07/13/2015 23:59 EST Hospital Encounter [address] [address] Unknown, Provider, MD Discharge Disposition: Home or Self Care Social History Tobacco Use Types Packs/Day Years Used Date Smoking Tobacco: Never Assessed Sex and Gender Information Value Date Recorded Sex Assigned at Not on file Legal Sex Male 18:31 EST Gender Identity Not on file Sexual Orientation Not on file documented as of this encounter Discharge Disposition Disposition Code Departure Means Destination Home or Self Nursing Home documented in this encounter Plan of Treatment Not on file documented as of this encounter Visit Diagnoses Not on filedocumented in this encounter Care Teams Fireproof Door Assembler Relationship Specialty Start Date End Date Hany Foote MD [address] [place] [address] PCP - General 12/25/12 07/14/15 documented as of this encounter
--- OUTSIDE RECORDS SUMMARY | 2024-04-29 13:12 | XMS_ITS | Encounter Summary ---
Author Organization [facility] Address [address] [place] [address] Care Team Providers Care Web Application Developer Name Role Phone Unavailable Primary Care Provider Unavailabl e Encounter Details Date Type Department Care Team (Late st Contact Info) Description 03/10/2005 Results Only [facility] - Maple conversion [address] [place] [address] Jame Joyce MD [address] [place] [address] Social History Tobacco Use Types Packs/Day Years [...] Date/Time Associated Diagnosis Comments SURGICAL PATHOLOGY Routine 03/10/2005 0:00 EDT documented in this encounter Results * SURGICAL PATHOLOGY (03/10/2005 0:00 EDT) Pathology Report: SURGICAL PATHOLOGY REPORT Reports generated via electronic interface contain original data; however they are lacking the format of the original report. Caution should be taken when reading/interpreti ng unformatted reports. Name: ? ED CARRASCO ? Accession #: ? [id number] ? : ? 1955 (Age: 49) ??M ? Collect Date: ? 03/10/2005 ? Location: ? [facility] ? Receive Date: ? 03/11/2005 ? Provider: KAY JOYCE MD Copy to: MAZIN LANDRY MD ? Final Pathologic Diagnosis: ? Skin of neck, right, excision: - Dilated pore of John with adjacent foreign body giant cell reaction to keratinaceous debris ?consistent with partial prior rupture, completely excised. Document reviewed and electronically signed by: Hola Castro MD Report ??Date: 03/14/2005 15:37 By the signature above, the attending physician certifies that he/she has personally conducted a gross and/or microscopic examination of the described specimens and rendered or confirmed the above diagnosis. Specimen(s) Received: ? Lesion right cheek Clinical History: ? Recently infected cyst R cheek Gross Description: ? Received in formalin labelled Carrasco and cyst, right cheek is an unoriented skin ellipse which measures 1.6 x 0.8 cm, and is excised to a depth of 0.8 cm. ??The cutaneous surface is white-johnson and unremarkable. ??The specimen is inked and serially sectioned to reveal a yellow, subcutaneous tissue that extends to a depth of 0.5 cm. ??The specimen is entirely submitted as follows: BLOCK HUGHES A1, A2 ?Central sections A3 ?Distal tips, reverse en face (Dr. Leo)/[facility] End of Report GANESH CARO 03/10/2005 03/11/2005 15: 11 EDT us Jame Joyce MD PATHOLOGY ORDERABLES Final Res ult GANESH CARO [address] [place] [address] documented in this encounter Visit Diagnoses Not on filedocumented in this encounter
--- OUTSIDE RECORDS SUMMARY | 2024-04-29 13:12 | XMS_ITS | Encounter Summary ---
Author Organization [facility] Address [address] [place] [address] Care Team Providers Care Steamtable Worker Name Role Phone None, Provider Primary Care Provider Unavailabl e Encounter Details Date Type Department Care Team (Late st Contact Info) Description 09/25/2019 Lab Requisition [facility] Pathology & Laboratory Medicine - [facility] [address] [place] [address] Unknown, Provider, MD Social History Tobacco Use Types Packs/Day Years [...] Procedure Name Priority Date/Time Associated Diagnosis Comments PSA TOTAL, DIAGNOSTIC Routine 09/24/2019 12:45 EDT documented in this encounter Results * PSA TOTAL, DIAGNOSTIC (09/24/2019 12:45 EDT) PSA 3.5 0.0 - 4.5 ng/mL 09/26/2019 10:[address] [facility] Blood VENOUS BLOOD / Unknown Venipuncture / Unknown 09/24/2019 12:45 EDT 09/25/2019 15:19 EDT Narrative [facility] - 09/26/2019 10:17 EDT NOTE: Serum PSA concentration should not be interpreted as absolute evidence for the presence or absence of malignant disease. Assayed on Siemens ADVIA Nambiiaur XPT using chemiluminescent technology.??Values obtained by using different assay methods cannot be used interchangeably. us Provider Unknown MD CHEMISTRY & BLOOD GAS ORDERA BLES Final Result [facility] [address] [place] [address] documented in this encounter Visit Diagnoses Not on filedocumented in this encounter Care Teams Steamtable Worker Relationship Specialty Start Date End Date None, Provider PCP - General 07/17/15 documented as of this encounter
--- OUTSIDE RECORDS SUMMARY | 2024-04-29 13:13 | XMS_ITS | Encounter Summary ---
Author Organization [facility] [place] [address] Care Team Providers Care Inbound Call Center Representative Name Role Phone Pattie Acosta Primary Care Provider +1- [phone] Encounter Details Date Type Department Care Team (Late st Contact Info) Description 06/11/2018 Refill Dermatology at [facility] [address] [place] [address] Vickie Gomez PA [facility] [place] [address] Rosacea Social History Tobacco Use Types Packs/Day [...] encounter Miscellaneous Notes * Telephone Encounter - Yusra Carrillo - 06/11/2018 9:11 AM EST Ana Gomez patient Ms. Danilo Merlos had an appointment with Ana on 11/20/17 at 10:00am, and has a follow up appointment on 11/05/18 at 10:00am Mr. Carrasco is requesting a prescription for Doxycycline, and uses [facility] pharmacy in [place], [place]. If you have any questions please call Mr. Carrasco at [phone]. Mr. Carrasco stated that he is not out of this medication but would like it renewed before the end of May. Thank you, Yusra documented in this encounter Plan of Treatment Upcoming Encounters Date Type Department Care Team (Late st Contact Info) Description 10/18/2024 4:30 PM EDT Office Visit Dermatology at [facility] [address] [place] [address] Gary Kasper MD [address] [facility] [place] [address] documented as of this encounter Visit Diagnoses Diagnosis Rosacea documented in this encounter Care Teams Inbound Call Center Representative Relationship Specialty Start Date End Date Pattie Acosta PA [address] [place] [address] PCP - General Family Medicine 06/04/15 02/04/20 documented as of this encounter
--- OUTSIDE RECORDS SUMMARY | 2024-04-29 13:13 | XMS_ITS | Encounter Summary ---
Author Organization [facility] [place] [address] Care Team Providers Care Rod Tape Operator Name Role Phone Pattie Acosta Primary Care Provider +1- [phone] Reason for Visit * Reason Comments Skin Check FSC Encounter Details Date Type Department Care Team (Late st Contact Info) Description 01/02/2017 10:00 AM EDT Office Visit Dermatology at [facility] [address] [place] [address] Gary Kasper MD [address] [facility] [place] [address] Vickie Gomez PA [facility] [address] [place] [address] Rosacea; History of melanoma in situ; Dermatofibroma; Multiple benign nevi; Lentigines Social History Tobacco Use Types Packs/Day Years Used Date Smoking Tobacco: Former Cigarettes Q uit: 2002 Comments:Quit appox 12 yrs a go Alcohol Use Standard Drinks/Week Comments No 0 (1 standard drink = 0.6 oz pur e alcohol) Sex and Gender Information Value Date Recorded Sex Assigned at Not on file Gender Identity Not on file Sexual Orientation Not on file documented as of this encounter Progress Notes * Vickie Gomez PA - 01/02/2017 10:00 AM EDT DERMATOLOGY - ESTABLISHED PATIENT CLINIC NOTE Date of service: 01/02/2017 Ed Carrasco : 1955 Dermatology Physician Sales And Catering Coordinator Note: Vickie (Ana) SOLEDAD GomezC Chief Complaint Patient presents with ??? Skin Check FSC This is an established patient, last seen by myself on 12/28/2015 for rosacea. HPI: Ed Carrasco is a 61 y.o. male who presents for today for a full skin exam. No spots of concern today. He was diagnosed with rectal precancerous squamous atypia and on week 6 of 12 treatment three times weekly with imiquimod. He is tolerating it well. 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 (Excised 10/15/09) ? Rosacea (Sulfacet (blistered his forehead), Metrogel, Hydrocortisone 1%, Clindamycin, Metronidazole 500mg BID x 10 days, Ketoconazole 2% cream) Seborrheic dermatitis ?? Psoriasis ?? Medical History: No past medical history on file. No Defibrillator/pacemaker No Anti-coagulants Medications: Current Outpatient Prescriptions on File Prior to Visit Medication Sig Dispense Refill ??? imiquimod (ALDARA) 5 % Cream in Packet Apply topically three times a week. 36 each 0 ??? doxycycline (VIBRAMYCIN) 50 mg Capsule Take 1 capsule daily. 60 capsule 2 ??? ibuprofen (ADVIL;MOTRIN) 600 mg Tablet Take 600 mg by mouth 2 times daily. ??? multivitamin (THERAGRAN) tablet Take 1 tablet by mouth daily. No current facility-administered medications on file prior to visit. Allergies: Allergies Allergen Reactions ??? Vicodin [Hydrocodone-Acetaminophen] Nausea And Vomiting ??? Percocet [Oxycodone-Acetaminophen] ??? Sulfa (Sulfonamide Antibiotics) Family History: No family history of melanoma or non-melanoma skin cancer No family history of atopy Mother and brother- psoriasis ?? 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 - Skin: As per HPI; no other skin concerns. Examination: - Constitutional: Patient was alert, well-appearing and in no noticeable distress. - Skin: A full skin examination was performed. This includes the head, neck, face and scalp including behind the ears. The chest, abdomen, back, and axillae, as well as the arms, hands, palms, fingers. Legs, feet, toes and soles were also examined. Buttocks and genitalia were also examined with patient consent. Baer Skin Type: 2 Specific skin findings: 1. Scattered red papules/pustules on central face with diffuse erythema and telangiectasia 2. Central upper back: well healed scar s/p excision. 3. Left upper arm: firm papule, centrally raised and sclerotic, with peripheral hyperpigmentation and dimpling with lateral pressure. 4. Trunk and extremities: 0.3-0.5cm, medium-brown, evenly-pigmented macules and papules. All with regular pigment pattern on dermoscopy. No pigmented lesions suspicious for melanoma. 5. Trunk and extremities: 0.3-0.6cm light-brown evenly pigmented, well- demarcated macules. Diagnosis/Assessment/Treatment Plan: 1. Rosacea - Continue Protopic 0.1% ointment as needed. - Advised patient it is okay to increase Doxycyline dose if he should flare. Prescriptions: - Rx: Doxycycline 50mg, take 1 capsule daily. (#-90, 3 refills). 2. History of MIS - No cervical, supraclavicular or axillary lymphadenopathy noted. - No evidence of recurrence. - Continue to monitor. 3. Dermatofibroma (DF) (nonsymptomatic) - Patient reassured of benign nature. - Advised patient to call if areas become inflamed or irritated. 4. Benign appearing nevi with even pigmentation and well defined margins are noted (nonsymptomatic) - No lesions suspicious for melanoma identified on exam today. Will continue to monitor. - Discussed importance of sun protection, sun avoidance strategies, protective clothing, and sunscreen. I discussed warning signs for skin cancer, including the ABCDEs of melanoma. ?? - Patient reassured of benign nature. - Observe skin for change in color, size or character. Call if such occur. 5. Lentigines - Patient reassured of benign nature. - Observe skin for change in color, size or character. Call if such occur. LOS: [id number] RTC in 6 months for a full skin exam, sooner if needed. Appointment scheduled upon exiting. Instructed to call if problems arise. Patient verbally expressed understanding. I specifically asked the patient at the end of the visit if there were any further concerns or questions and the patient verbally stated there were no other concerns or questions. All questions were answered and all concerns were addressed. Note initiated by MALENA Randall, Clinical Scribe - I am documenting this encounter acting as the scribe for and in the presence of Vickie Gomez PA-C (Bri) I performed the above scribed service and agree with the accuracy of the documentation in this encounter. Reviewed and signed by Vickie Gomez PA-C (Bri) Dermatology [facility] Patient seen in conjunction with staff physician: Gary Kasper MD Section of Dermatology [facility] * Gary Kasper MD - 01/02/2017 10:00 AM EDT Examination Focused examination of the back significant for the following: ?? Well-demarcated, round or oval, johnson or brown macules and papules with benign morphology on the back Assessment and Plan Nevi Morphology reassuring for benign nevi. Patient seen in conjunction with Ana Gomez PA-C. Gary Kasper MD FAAD Section of Dermatology [facility] documented in this encounter Plan of Treatment Upcoming Encounters Date Type Department Care Team (Late st [facility] Info) Description 10/18/2024 4:30 PM EDT Office Visit Dermatology at [facility] [address] [place] [address] Gary Kasper MD [address] [facility] [place] [address] documented as of this encounter Visit Diagnoses Diagnosis Rosacea History of melanoma in situ Personal history of malignant melanoma of skin Dermatofibroma Benign neoplasm of skin, site unspecified Multiple benign nevi Benign neoplasm of skin, site unspecified Lentigines Other dyschromia documented in this encounter Care Teams Rod Tape Operator Relationship Specialty Start Date End Date Pattie Acosta PA [address] [place] [address] PCP - General Family Medicine 06/04/15 02/04/20 documented as of this encounter
--- OUTSIDE RECORDS SUMMARY | 2024-04-29 13:13 | XMS_ITS | Encounter Summary ---
Author Organization [facility] [place] [address] Care Team Providers Care Facilitator Name Role Phone Pattie Acosta Primary Care Provider +1- [phone] Reason for Visit * Reason Onset Date Comments Medication Refill 11/22/2018 Encounter Details Date Type Department Care Team (Late st Contact Info) Description 11/22/2018 Refill Dermatology at [facility] [address] [place] [address] Vickie Gomez PA [facility] [address] [place] [address] Rosacea Social History Tobacco Use Types Packs/Day [...] PM EDT Office Visit Dermatology at [facility] [address] [place] [address] Gary Kasper MD [address] [facility] [place] [place] [address] documented as of this encounter Visit Diagnoses Diagnosis Rosacea documented in this encounter Care Teams Facilitator Relationship Specialty Start Date End Date Pattie Acosta PA [address] [place] [address] PCP - General Family Medicine 06/04/15 02/04/20 documented as of this encounter
--- OUTSIDE RECORDS SUMMARY | 2024-04-29 13:13 | XMS_ITS | Encounter Summary ---
Author Organization [facility] [place] [address] Care Team Providers Care Tail Ripper Name Role Phone Pattie Acosta Primary Care Provider +1- [phone] Reason for Visit * Auth/Cert - Closed Specialty Diagnoses / Procedures Referred By Linda hwang Referred To Contact Diagnoses neck mass Procedures PRO EXCISION BRANC CLFT CYST, DEEP PRO LARYNGOSCOPY, DIRECT, DX, OP MICROSCOP EXCISION BRANCHIAL CLEFT CYST, VESTIGE OR FISTULA, DEEP LARYNGOSCOPY, WITH MICROSCOPE Referral ID Status Reason Start Date Expiration Date Visits Re quested Visits Authorized [id number] Closed 1 1 Encounter Details Date Type Department Care Team (Late st Contact Info) Description 08/31/2015 9:35 AM EDT Anesthesia [place] [address] Jerry Leblanc MD [facility] [place] [address] Freida Sky CRNA [facility] [place] [address] Anesthesia Record Procedure Summary Procedure Name Responsible Anesthesiologist Anesthesia Start Time Anesthesia Stop Time EXCISION BRANCHIAL CLEFT CYST, VESTIGE OR FISTULA, DEEP (WRVU 7.31) (Left: Mouth) Jerry Leblanc MD 08/31/15 0935 08/31/15 1231 Events Date Time Event Comment 08/31/2015 0849 0935 Start 0935 AN Verify 0938 An Start Data 0945 An Induction 0957 An Intubation 1005 Anesthesia Ready 1140 Quick Note speciment out, decadron given 1212 Extubation/LMA Out 1222 an stop data 1231 Recovery or ICU Handoff Ashley ent care was transferred to the destination unit staff after review of the patient's medical history, current anesthetic/surgical status and plan, according to the Provider Handoff Checklist. 1231 Stop Meds Name Total Midazolam 2 mg fentaNYL 250 mcg IV Lidocaine 50 mg Propofol 300 mg Rocuronium 50 mg PHENYLephrine 80 mcg ePHEDrine 10 mg Ondansetron 8 mg Dexamethasone 8 mg Neostigmine 3 mg Glycopyrrolate 0.4 mg ampicillin-sulbactam (UNASYN ) 1.5 g vial attach to sodium chloride 0.9% 50 mL Mini-Bag Plus 1.5 g Propofol INF 200.94 mg Dexmedetomidine 8 mcg lactated ringers infusion 1,000 mL 950 m L * Agents Name O2 Air Sevoflurane (et) * Blood No blood administrations on file. Lines, Drains, and Airways Type Details Placement Removal Incision 08/31/15; throat; 02/14/22 (LDA cleanup utility RA#[id number]); 1715 (LDA cleanup utility RA#[id number]) 08/31/15 0000 by Maddy Blanton RN 02/14/22 1715 by Lida Sorenson Incision 08/31/15; neck; 02/14/22 (LDA cleanup utility RA#[id number]); 1715 (LDA cleanup utility RA#[id number]) 08/31/15 0000 by Maddy Blanton RN 02/14/22 1715 by Lida Sorenson (RETIRED) Peripheral IV Line - Single Lumen 08/31/15; 0831; metacarpal vein left (top of hand); [id number] catheter system; 18 gauge; Amanda Manning; intradermal injection, tolerated well, appears comfortable; metacarpal vein (top of hand), left; no longer indicated; 08/31/15; 1407 08/31/15 0831 by Reema Manning RN 08/31/15 1407 by Jame Aguirre RN ETT Mask Ventilation: Adjunct (2); ETT Type: Cuffed; ETT Size: 7 mm; Exchange: Bougie; Notes: Asleep; Attempts: 3; ETT Placement Verified By: Auscultation, Capnometry; Secured at Teeth: 23 cm; Inserted by: MD Librado; Removal Date: 08/31/15; Removal Time: 12108/31/15 0957 by Jerry Leblanc MD 08/31/15 1212 by Freida Sky CRNA documented in this encounter Social History Tobacco Use Types Packs/Day Years [...] on file documented as of this encounter OR Notes * Anesthesia Postprocedure Evaluation - Jerry Leblanc MD - 09/02/2015 4:43 PM EDT [facility] Department of Anesthesiology Post-procedure Note Patient: Ed Carrasco Procedure Summary Date Anesthesia Start Anesthesia Stop Room / Location 08/31/15 0935 1231 [facility] OR [facility] MAIN OR Procedure Diagnosis Surgeon Responsible Provider EXCISION BRANCHIAL CLEFT CYST, VESTIGE OR FISTULA, DEEP (Left Mouth); LARYNGOSCOPY, WITH MICROSCOPE(N/A Throat) (neck mass) Nadeem Pavon MD Morley, Benjamin D, MD All Anesthesia Providers: Anesthesiologist: Jerry Leblanc MD SANDWICH MACHINE OPERATOR: Freida Sky CRNA Last (1hr) Vitals: BP Temp Pulse Resp SpO2 Patient Location: PACU/[facility] Level of Consciousness: Awake and Alert Pain Management: Satisfactory Analgesia PONV: None Cardiovascular Status: At Baseline and Hemodynamically Stable Respiratory Status: At Baseline and Room Air Postoperative Fluid Status: Intravascular EUvolemia Possible Anesthetic Complications: NONE apparent at time of evaluation Final Primary Anesthesia Type: General (The anesthetic type performed was the same as planned.) Comments: JERRY LEBLANC MD * Anesthesia Preprocedure Evaluation - Jerry Leblanc MD - 08/31/2015 8:22 AM EDT Pre-Anesthesia Evaluation for: Ed Carrasco a 60 y.o. male. Procedure(s): EXCISION BRANCHIAL CLEFT CYST, VESTIGE OR FISTULA, DEEP LARYNGOSCOPY, WITH MICROSCOPE Patient Active Problem List Diagnosis ??? Neck mass ??? Acne rosacea ??? History of atypical nevus ??? Atypical moles Deactivated Dx replaced via utility ??? Rosacea No past medical history on file. Past Surgical History Procedure Laterality Date ??? Colon surgery ??? Hernia repair History Substance Use Topics ??? Smoking status: Former Smoker Quit date: 2002 ??? Smokeless tobacco: Not on file Comment: Quit appox 12 yrs ago ??? Alcohol Use: No History Drug Use No Allergies Allergen Reactions ??? Vicodin [Hydrocodone-Acetaminophen] Nausea And Vomiting ??? Percocet [Oxycodone-Acetaminophen] ??? Sulfa (Sulfonamide Antibiotics) Medications: MAR and/or home medications have been reviewed. Physical Exam: Filed Vitals: 08/31/15 0813 BP: 117/63 Pulse: 62 Temp: 36.5 ??C (97.7 ??F) Resp: 16 Body mass index is 26.27 kg/(m^2). Height: 175.3 cm (5' 9.02) Weight - Scale: 80.74 kg (178 lb) Airway Assessment: Mallampati: III TM distance: <3 FB Neck ROM: full High arched palate Cardiovascular Assessment: Pulmonary Assessment: Dental Assessment: Misc Assessment: Anesthesia Plan: ASA 2 General, with a(n) intravenous induction This is a 60 year old male with a history of remote tobacco abuse who presents with a left cleft cyst for excision. Patient endorses recent URI, symptoms largely gone. Good exercise tolerance. Plan GETA Region - Other Informed Consent: Anesthetic plan and risks discussed with patient. Plan discussed with attending and SANDWICH MACHINE OPERATOR. PAT Staff Note documented in this encounter Plan of Treatment Upcoming Encounters Date Type Department Care Team (Late st Contact Info) Description 10/18/2024 4:30 PM EDT Office Visit Dermatology at [facility] [address] [place] [address] Gary Kasper MD [address] [facility] [place] [address] documented as of this encounter Visit Diagnoses Not on filedocumented in this encounter Administered Medications Inactive Administered Medications - up to 3 most recent administrations Medication Order MAR Action Action Date Dose Rate Site ampicillin-sulbactam (UNASYN) 1.5 g vial attach to sodium chloride 0.9% 50 mL Mini-Bag Plus 1.5 g, Intravenous, 30 MIN PRE-OP, 1 dose, On Mon08/31/15 at 0830, Administer over 30 Minutes, Day of Surgery (Day of Procedure), Indication for (Active or Suspected): Prophylaxis Given 08/31/2015 10:10 AM EDT 1.5 g dexamethasone (DECADRON) injection PRN, Starting on Mon08/31/15 at 1140, Until Mon08/31/15 at 1231, Anesthesia Intra-op, Routine Given 08/31/2015 11:40 AM EDT 8 mg dexmedetomidine (PRECEDEX) injection PRN, Starting on Mon08/31/15 at 1216, Until Mon08/31/15 at 1232, Anesthesia Intra-op, Routine Given 08/31/2015 12:16 PM EDT 8 mcg ePHEDrine 5 mg/mL multi-dose injection PRN, Starting on Mon08/31/15 at 1110, Until Mon08/31/15 at 1231, Anesthesia Intra-op, Routine Given 08/31/2015 11:10 AM EDT 10 mg fentaNYL 50 mcg/mL multi-dose injection PRN, Starting on Mon08/31/15 at 0945, Until Mon08/31/15 at 1231, Pain, Anesthesia Intra-op, Routine Given 08/31/2015 11:00 AM EDT 100 mcg Given 08/31/2015 10:00 AM EDT 50 mcg Given 08/31/2015 9:45 AM EDT 100 mcg glycopyrrolate (ROBINUL) multi-dose injection PRN, Starting on Mon08/31/15 at 1152, Until Mon08/31/15 at 1231, Anesthesia Intra-op, Routine Given 08/31/2015 11:52 AM EDT 0.4 mg lactated ringers infusion 1,000 mL 1,000 mL, at 100 mL/hr, Intravenous, CONTINUOUS, Starting on Mon08/31/15 at 0915, Until Mon08/31/15 at 1407, Day of Surgery (Day of Procedure) New Bag 08/31/2015 9:35 AM EDT lidocaine (PF) (XYLOCAINE) 100 mg/5 mL (2 %) injection PRN, Starting on Mon08/31/15 at 0945, Until Mon08/31/15 at 1231, Anesthesia Intra-op, Routine Given 08/31/2015 9:45 AM EDT 50 mg midazolam (PF) (VERSED) 1 mg/mL multi-dose injection PRN, Starting on Mon08/31/15 at 0935, Until Mon08/31/15 at 1231, Sleep, Anesthesia Intra-op, Routine Given 08/31/2015 9:35 AM EDT 2 mg neostigmine (PROSTIGMINE) multi-dose injection PRN, Starting on Mon08/31/15 at 1152, Until Mon08/31/15 at 1231, Anesthesia Intra-op, Routine Given 08/31/2015 11:52 AM EDT 3 mg ondansetron (ZOFRAN) injection PRN, Starting on Mon08/31/15 at 1142, Until Mon08/31/15 at 1231, Nausea, Anesthesia Intra-op, Routine Given 08/31/2015 11:42 AM EDT 8 mg PHENYLephrine HCl in NS (PF) (PATSY-SYNEPHRINE) 0.8 mg/10 mL (80 mcg/mL) multi-dose injection Syrg PRN, Starting on Mon08/31/15 at 1015, Until Mon08/31/15 at 1231, Anesthesia Intra-op, Routine Given 08/31/2015 10:15 AM EDT 80 mcg propofol (DIPRIVAN) 10 mg/mL bolus injection (Anesthesia) PRN, Starting on Mon08/31/15 at 0945, Until Mon08/31/15 at 1231, Anesthesia Intra-op Given 08/31/2015 9:55 AM EDT 50 mg Given 08/31/2015 9:51 AM EDT 50 mg Given 08/31/2015 9:46 AM EDT 50 mg propofol (DIPRIVAN) infusion CONTINUOUS PRN, Starting on Mon08/31/15 at 1024, Until Mon08/31/15 at 1231, Anesthesia Intra-op, Routine New Bag 08/31/2015 10:24 AM EDT 30 mcg/kg/min 14.5 mL/hr rocuronium (ZEMURON) multi-dose injection PRN, Starting on Mon08/31/15 at 0945, Until Mon08/31/15 at 1231, Anesthesia Intra-op, Routine Given 08/31/2015 9:45 AM EDT 50 mg documented in this encounter Care Teams Tail Ripper Relationship Specialty Start Date End Date Pattie Acosta PA [address] [place] [address] PCP - General Family Medicine 06/04/15 02/04/20 documented as of this encounter
--- OUTSIDE RECORDS SUMMARY | 2024-04-29 13:13 | XMS_ITS | Encounter Summary ---
Author Organization [facility] [place] [address] Care Team Providers Care Sedimentationist Name Role Phone Pattie Acosta Primary Care Provider [phone] Encounter Details Date Type Department Care Team (Late st Contact Info) Description 03/13/2017 12:06 PM EDT Anesthesia Event [place] [address] Dacia Samuel MD [facility] [place] [address] Anesthesia Record Procedure Summary Procedure Name Responsible Anesthesiologist Anesthesia Start Time Anesthesia Stop Time ANORECTAL EXAM, REQUIRING ANESTHESIA, DIAGNOSTIC (WRVU 1.8) (Anus) Dacia Samuel MD 03/13/17 1206 03/13/17 1243 Events Date Time Event Comment 03/13/2017 1109 1205 AN Verify 1206 Start 1206 An Start Data 1212 Anesthesia Ready 1221 Procedure Start 1228 Procedure Stop 1242 an stop data 1243 Recovery or ICU Handoff Ashley ent care was transferred to the destination unit staff after review of the patient's medical history, current anesthetic/surgical status and plan, according to the Provider Handoff Checklist. 1243 Stop Meds Name Total Midazolam 2 mg fentaNYL 100 mcg IV Lidocaine 100 mg Propofol 20 mg Propofol INF 152.93 mg lactated Ringers infusion 1,000 mL 0 mL * Agents Name O2 Air N2O Sevoflurane (et) * Blood No blood administrations on file. Lines, Drains, and Airways Type Details Placement Removal Supraglottic Nasopharyngeal Size: 28 Fr; Inserted by: ODILIA Trejo 03/13/17 1216 by Melvin Trejo CRNA Incision 08/31/15; throat; 02/14/22 (LDA cleanup utility RA#[id number]); 1715 (LDA cleanup utility RA#[id number]) 08/31/15 0000 by Maddy Blanton RN 02/14/22 1715 by Lida Sorenson Incision 08/31/15; neck; 01/18 03/10 (LDA cleanup utility RA#[id number]); 1715 (LDA cleanup utility RA#[id number]) 08/31/15 0000 by Maddy Blanton RN 02/14/22 1715 by Lida Sorenson (RETIRED) Peripheral IV Line - Single Lumen 03/13/17; 1052; metacarpal vein (top of hand), right; [id number] catheter system; 18 gauge, 1 in length; García Espinosa RN; distraction, intradermal injection, age-appropriate response, appears comfortable, tolerated well; metacarpal vein (top of hand), right; 10/02/17 (Auto removal via utility); 0921 (Auto removal via utility) 03/13/17 1052 by Evelyn Espinosa RN 10/02/17 0921 by Geronimo, User Incision 03/13/17; 1220; anus ; 02/14/22 (LDA cleanup utility RA#[id number]); 1715 (LDA cleanup utility RA#[id number]) 03/13/17 1220 by Sri Davis RN 02/14/22 1715 by Lida Sorenson documented in this encounter Social History Tobacco [...] OR Notes * Anesthesia Postprocedure Evaluation - Dacia Samuel MD - 03/13/2017 2:17 PM EDT [facility] Department of Anesthesiology Post-procedure Note Patient: Ed Carrasco Procedure Summary Date Anesthesia Start Anesthesia Stop Room / Location 03/13/17 1206 1243 [facility] OR 26 / [facility] MAIN OR Procedure Diagnosis Surgeon Responsible Provider ANORECTAL EXAM, REQUIRING ANESTHESIA, DIAGNOSTIC (WRVU 1.8) (N/A Anus); BIOPSY ANORECTAL WALL (WRVU4.04) (N/A Anus) (ANAL NEOPLASIA) Hany Chase MD O'Flaherty, Jennifer E, MD All Anesthesia Providers: Anesthesiologist: Dacia Samuel MD WOOD GRINDER OPERATOR: Melvin Trejo CRNA Most Recent Vitals: 03/13/17 1245 BP: 120/80 Pulse: 72 Resp: 16 Temp: 37 ??C (98.6 ??F) SpO2: 100% Pain Patient Location: PACU/[facility] Level of Consciousness: Conscious but Sleepy Pain Management: Satisfactory Analgesia PONV: None Cardiovascular Status: At Baseline Respiratory Status: At Baseline Postoperative Fluid Status: Intravascular EUvolemia Possible Anesthetic Complications: NONE apparent at time of evaluation Final Primary Anesthesia Type: MAC (The anesthetic type performed was the same as planned.) Comments: * Anesthesia Preprocedure Evaluation - Dacia Samuel MD - 03/13/2017 11:09 AM EDT Pre-Anesthesia Evaluation for: Ed Carrasco a 61 y.o. male. Procedure(s): ANORECTAL EXAM, REQUIRING ANESTHESIA, DIAGNOSTIC (WRVU 1.8) BIOPSY ANORECTAL WALL (WRVU 4.04) Patient Active Problem List Diagnosis ??? Seborrheic dermatitis ??? History of melanoma in situ ??? Psoriasis ??? Neck mass ??? Acne rosacea ??? History of atypical nevus ??? Atypical moles Deactivated Dx replaced via utility ??? Rosacea No past medical history on file. Past Surgical History: Procedure Laterality Date ??? COLON SURGERY ??? HERNIA REPAIR ??? PRO EXCISION BRANC CLFT CYST, DEEP Left 08/31/2015 EXCISION BRANCHIAL CLEFT CYST, VESTIGE OR FISTULA, DEEP [facility] ??? PRO LARYNGOSCOPY, DIRECT, DX, OP MICROSCOP N/A 08/31/2015 LARYNGOSCOPY, WITH MICROSCOPE performed by Nadeem Pavon MD at [facility] MA[facility] OR Social History Substance Use Topics ??? Smoking status: Former Smoker Quit date: 2002 ??? Smokeless tobacco: Never Used Comment: Quit appox 12 yrs ago ??? Alcohol use No History Drug Use No Allergies Allergen Reactions ??? Vicodin [Hydrocodone-Acetaminophen] Nausea And Vomiting ??? Percocet [Oxycodone-Acetaminophen] ??? Sulfa (Sulfonamide Antibiotics) Medications: MAR and/or home medications have been reviewed. Physical Exam: Most Recent Vitals: 03/13/17 1036 BP: 133/73 Pulse: 60 Resp: 16 Temp: 36.4 ??C (97.5 ??F) SpO2: 100% Body mass index is 24.29 kg/(m^2). Height: 175.3 cm (5' 9) Weight - Scale: 74.6 kg (164 lb 7.4 oz) Airway Assessment: Mallampati: I TM distance: <3 FB Neck ROM: full Cardiovascular Assessment: cardiovascular exam normal Pulmonary Assessment: pulmonary exam normal Dental Assessment: Comment: Two partial plates Misc Assessment: IV access: Peripheral line Anesthesia Plan: ASA 1 MAC, with a(n) intravenous induction Plan MAC with RM- GA backup. Plans and risks reviewed. Questions answered. Region - Other Informed Consent: Anesthetic plan and risks discussed with patient. Plan discussed with WOOD GRINDER OPERATOR and attending. PAT Staff Note documented in this encounter Plan of Treatment Upcoming Encounters Date Type Department Care Team (Late st Contact Info) Description 10/18/2024 4:30 PM EDT Office Visit Dermatology at [facility] [address] [place] [id number] Gary Kasper MD [address] [facility] [address] documented as of this encounter Visit Diagnoses Not on filedocumented in this encounter Administered Medications Inactive Administered Medications - up to 3 most recent administrations Medication Order MAR Action Action Date Dose Rate Site fentaNYL 50 mcg/mL multi-dose injection PRN, Starting on Mon03/13/17 at 1207, Until Mon03/13/17 at 1243, Pain, Anesthesia Intra-op, Routine Given 03/13/2017 12:10 PM EDT 50 mcg Given 03/13/2017 12:07 PM EDT 50 mcg lidocaine (PF) (XYLOCAINE) 100 mg/5 mL (2 %) injection PRN, Starting on Mon03/13/17 at 1209, Until Mon03/13/17 at 1243, Anesthesia Intra-op, Routine Given 03/13/2017 12:09 PM EDT 100 mg midazolam (PF) (VERSED) 1 mg/mL multi-dose injection PRN, Starting on Mon03/13/17 at 1203, Until Mon03/13/17 at 1243, Sleep, Anesthesia Intra-op, Routine Given 03/13/2017 12:03 PM EDT 2 mg propofol (DIPRIVAN) 10 mg/mL bolus injection (Anesthesia) PRN, Starting on Mon03/13/17 at 1225, Until Mon03/13/17 at 1243, Anesthesia Intra-op Given 03/13/2017 12:25 PM EDT 20 mg propofol (DIPRIVAN) infusion CONTINUOUS PRN, Starting on Mon03/13/17 at 1207, Until Mon03/13/17 at 1243, Anesthesia Intra-op, Routine Restarted 03/13/2017 12:25 PM EDT 100 mcg/kg/min 44.8 mL/hr Rate/Dose Change 03/13/2017 12:12 PM EDT 150 mcg/kg/min 67 .1 mL/hr New Bag 03/13/2017 12:07 PM EDT 250 mcg/kg/min 111.9 mL /hr documented in this encounter Care Teams Sedimentationist Relationship Specialty Start Date End Date Pattie Acosta PA [address] [place] [address] PCP - General Family Medicine 06/04/15 02/04/20 documented as of this encounter
--- OUTSIDE RECORDS SUMMARY | 2024-04-29 13:13 | XMS_ITS | Encounter Summary ---
Author Organization [facility] [place] [address] Care Team Providers Care Drafter Assistant Name Role Phone Pattie Acosta Primary Care Provider [phone]- [phone] Encounter Details Date Type Department Care Team (Late st Contact Info) Description 03/13/2017 12:00 PM EDT - 03/13/2017 1:30 PM EDT Surgery [place] [address] Hany Chase MD [facility] [place] [address] ANORECTAL EXAM, REQUIRING ANESTHESIA, DIAGNOSTIC (WRVU 1.8) Social History Tobacco Use Types Packs/Day Years [...] on file documented as of this encounter Last Filed Vital Signs Vital Sign Reading Time Taken Comments Blood Pressure 120/80 03/13/2017 12:45 PM EDT Pulse 72 03/13/2017 12:45 PM EDT Temperature 37 ??C (98.6 ??F) 03/13/2017 12:45 PM EDT Respiratory Rate 16 03/13/2017 12:45 PM EDT Oxygen Saturation 100% 03/13/2017 12:45 PM EDT Inhaled Oxygen Concentration - - Weight 74.6 kg (164 lb 7.4 oz) 03/13/2017 10:36 AM EDT Height 175.3 cm (5' 9) 03/13/2017 10:36 AM EDT Body Mass Index 24.29 03/13/2017 10:36 AM EDT documented in this encounter Discharge Instructions * Discharge Instructions* Yessi Foley RN - 03/13/2017 12:57 PM EDT Images from the original note were not included. POST ANESTHESIA INSTRUCTIONS Go home, rest, use caution on stairs. Change positions slowly. Do not smoke if you are alone. Diet light to regular as tolerated today. If nausea occurs start with clear liquids and progress slowly. No driving, operating machinery, alcoholic beverages and no important decisions for 24 hours. Monitor IV site for signs and symptoms of infection: increasing redness, swelling, foul drainage, if occurs contact M.D. Patients who have had endotrachial tubes (this tube, used by anesthesia department, is passed down your throat after you are asleep, to ensure safe air passage during your operation). A sore throat is normal due to the tube. Cold liquids or soothing lozenges will help ease the discomfort. The generalized muscle aches are due to the medication given to you just before the tube is inserted. As the medication wears off, you may develop muscle soreness, which usually goes away in 12-24 hours.DIVISION OF COLON & RECTAL SURGERY Anorectal Surgery Patient Post-operative Discharge Instructions 1. Wound Care ?? Leave the dressing intact today and remove it tomorrow morning. If you need to move your bowels,the dressing may be removed sooner. ?? Expect some drainage - this may be residual pus, or may be a small amount of blood or mucus - this is normal / expected. ?? Please use fluffy 4x4 gauze to absorb any drainage and keep your bottom dry. ?? You may have some packing your wound that you should remove in the sitz bath tomorrow morning. ?? Please use a sitz bath or shower 3 - 4X per day (starting tomorrow morning). ?? Sitz bath instructions: Soak your buttocks in plain warm tapwater for 15 minutes 4X/day. This iscomforting and also increase blood flow to the area to aid in healing. ?? if you have a lot of swelling, try sitting on an ice-pack (frozen pea's work well). ?? You may sit on a pillow but do not sit on donut cushions as it spreads the buttocks. 2. Pain medications ?? Please take [id number] pain medications for post-operative discomfort. ?? Acetaminophen (Tylenol) 1000 mg by mouth every 6 hours. ?? Ibuprofen (Motrin/Advil) 600 mg by mouth every 6 hours with food & plenty of liquids. ?? You may alternate these medications every 3 hours; ex. Tylenol at 12pm, Ibuprofen at 3pm, Tylenol at 6pm, Ibuprofen at 9 pm. ?? In addition please use prescribed narcotic pain medication as instructed for severe pain. 3. Avoid getting constipated ?? Drink lots of water and fluids (over 2 liters per day). ?? Each morning please take a daily fiber supplement (such as Citrucel or BeneFiber), one heaping tablespoon in 8 oz. of water. (MiraLax may be recommended instead of fiber) ?? While taking narcotic pain medications please also take a stool softener (Colace 100 mg two to three times per day). ?? If you do not have a bowel movement in 48 hours then take 60 cc of Milk of Magnesia every 12 hours until you have a bowel movement. If you do not have a bowel movement after 2 doses of Milk of Magnesia please call (see below). 4. When to call ?? Fever > 101.5 F, worsening pain, active bleeding, passing blood clots ?? difficulty/inability to pass urine (urinary retention) or stool (constipation) ?? any other worrisome condition or question ?? during regular work hours call the Surgery Clinic at ?? after hours / nights / weekends / holidays: call and ask for the General Surgery Resident doctor On-Call. 4. Follow-up. You will have a post-operative follow-up appointment with your Surgical Team scheduled, usually in 2 - 6 weeks with Ms. Luna, Colorectal PA-García, anorectal surgery sub-specialist,with your surgeon supervising. If you have any questions, please call . Divison of Colon and Rectal Surgery, [facility] [address] [facility] [address] ??? GAYLA Garcia [phone] ??? documented in this encounter Medications at Time of Discharge Medication Sig Dispensed Refills Start Date End Date multivitamin (THERAGRAN) tablet Take 1 tablet by mouth daily. acetaminophen (TYLENOL) 325 mg Tablet Take 2 tablets by mouth every 4 hours as needed for Pain. 30 tablet 1 03/13/2017 05/10/2022 doxycycline (VIBRAMYCIN) 50 mg CapsuleIndications:Ros acea Take 1 capsule daily. 90 capsule 3 01/02/2017 05/22/2017 imiquimod (ALDARA) 5 % Cream in Packet Apply topically three times a week. 36 each 11/11/2016 03/05/2018 ibuprofen (ADVIL;MOTRIN) 600 mg Tablet Take 600 mg by mouth 2 times daily. 05/10/2022 documented as of this encounter H&P Notes * Love Contreras MD - 03/13/2017 11:35 AM EDT Patient Name: Ed Carrasco Patient Age: 61 y.o. Birthdate: 1955 Admit date: 03/13/2017 Attending Physician: Hany Chase MD General Surgery Interval H&P Ed Carrasco,[id number],1955 ID: Since last seen in clinic, no changes to medications, no fevers, chills, headaches, chest pain/thigtness, new cough, nausea, emesis, constipation, diarrhea, difficulties urinating, one sided numbnessor tingling sensation No past medical history on file. Past Surgical History: Procedure Laterality Date ??? COLON SURGERY ??? HERNIA REPAIR ??? PRO EXCISION BRANC CLFT CYST, DEEP Left 08/31/2015 EXCISION BRANCHIAL CLEFT CYST, VESTIGE OR FISTULA, DEEP [facility] ??? PRO LARYNGOSCOPY, DIRECT, DX, OP MICROSCOP N/A 08/31/2015 LARYNGOSCOPY, WITH MICROSCOPE performed by Nadeem Pavon MD at [facility] No current facility-administered medications on file prior to encounter. Current Outpatient Prescriptions on File Prior to Encounter Medication Sig Dispense Refill ??? ibuprofen (ADVIL;MOTRIN) 600 mg Tablet Take 600 mg by mouth 2 times daily. ??? multivitamin (THERAGRAN) tablet Take 1 tablet by mouth daily. Allergies Allergen Reactions ??? Vicodin [Hydrocodone-Acetaminophen] Nausea And Vomiting ??? Percocet [Oxycodone-Acetaminophen] ??? Sulfa (Sulfonamide Antibiotics) Vitals: 03/13/17 1036 BP: 133/73 Pulse: 60 Resp: 16 Temp: 36.4 ??C (97.5 ??F) SpO2: 100% Weight: 74.6 kg (164 lb 7.4 oz) Height: 175.3 cm (5' 9) Exam: General: NAD Heart: RRR Lungs: Vesicular bilateral Abdomen: Soft, non distended/tender Extremities: Warm, no edema No results found for this or any previous visit (from the past 24 hour(s)). Assessment/Plan Proceed with scheduled procedure Procedure(s): ANORECTAL EXAM, REQUIRING ANESTHESIA, DIAGNOSTIC (WRVU 1.8) BIOPSY ANORECTAL WALL (WRVU 4.04) documented in this encounter Miscellaneous Notes * Op Note - Love Contreras MD - 03/13/2017 1:03 PM EDT [facility] Operative Note Patient Name: Ed Carrasco : [id number] MR#: [id number] Case Date: 03/13/2017 Surgeon: Surgeon(s) and Role: * Hany Chase MD - Primary * Love Contreras MD - Resident-Surgeon Paul Preoperative diagnosis: ANAL NEOPLASIA Postoperative diagnosis: ANAL NEOPLASIA Procedure(s) (LRB): ANORECTAL EXAM, REQUIRING ANESTHESIA, DIAGNOSTIC (WRVU 1.8) (N/A) BIOPSY ANORECTAL WALL (WRVU 4.04) (N/A) Findings: Internal hemorrhoids, 8 anal biopsies obtained. Anesthesia: Anesthesia type not filed in the log. Estimated Blood Loss: * No values recorded between 03/13/2017 12:20 PM and 03/13/2017 12:28 PM * Specimens removed during surgery: 8 biopsies: Posterior anal verge, Right anal verge, Anterior analverge, Left anal verge, Posterior anal canal, Right anal canal, Anterior anal canal, and Left anal canal. Drains: None Surgical Closure: Primary Closure - closure of ALL tissue levels during the original surgery regardless of wires, wickes, drains, or other devices extruding through the incision Disposition: awakened from anesthesia, extubated and taken to the recovery room in a stable condition, having suffered no apparent untoward event. Condition: doing well without problems HPI/Surgical Indications: History of anal intraepithelial neoplasia, stage III. Formal mapping of anal canal to determine extent of disease and potential for resection. Procedure Description: The patient was brought to the operating room and put in the prone position and perianal area was prepped and draped in the usual sterile manner. A time out was performed per [facility] protocol. 30 ml of local anesthetic was injected as a field block. A Pop [place] was used to inspect the anal canal and revealed grade I internal hemorrhoids in the anterior and right canal. A 15 blade scalpel was used with forceps to obtain 8 biopsies: Posterior anal verge, Right anal verge, Anterior anal verge, Left anal verge, Posterior anal canal, Right anal canal, Anterior anal canal, and Left anal canal. Good hemostasis was achieved throughout. Irrigation was used. A roll of Gelfoam was placed in the anal canal and then a fluffy gauze dressing was placed over the Gelfoam. The patient was then returned to the supine position and taken to the recovery area in stable condition. ?? Dr. Chase was scrubbed for the entirety of the case. Infection Bundle used? N/A Associated attestation - Hany Chase MD - 03/28/2017 9:49 AM EDT Attestation: Case Date: 03/13/2017 I was present and I participated during the entire procedure (does not need to include opening and closing). Hany Chase MD 03/28/2017 * Brief Op Note - Love Contreras MD - 03/13/2017 12:40 PM EDT Brief Operative Note Patient Name: Ed Carrasco : [id number] MR#: [id number] Case Date: 03/13/2017 Surgeon: Surgeon(s) and Role: * Hany Chase MD - Primary * Love Contreras MD - Resident-Surgeon Paul Preoperative diagnosis: ANAL NEOPLASIA Postoperative diagnosis: ANAL NEOPLASIA Procedure(s) (LRB): ANORECTAL EXAM, REQUIRING ANESTHESIA, DIAGNOSTIC (WRVU 1.8) (N/A) BIOPSY ANORECTAL WALL (WRVU 4.04) (N/A) Anesthesia: Anesthesia type not filed in the log. Findings: Internal hemorrhoids. 8 anal biopsies obtained. The patient was brought to the operating room and put in the prone position and perianal area was prepped and draped in the usual sterile manner. A time out was performed per [facility] protocol. 30 ml of local anesthetic was injected as a field block. A Pop [place] was used to inspect the anal canal and revealed grade I internal hemorrhoids in the anterior and right canal. A 15 blade scalpel was used with forceps to obtain 8 biopsies: Posterior anal verge, Right anal verge, Anterior anal verge, Left anal verge, Posterior anal canal, Right anal canal, Anterior anal canal, and Left anal canal. Hemostasis was achieved with electrocautery, followed by washout of the canal. The patient was taken to the recovery room in stable condition. Dr. Chase was scrubbed for the entirety of the case. Complications: None Estimated Blood Loss: * No values recorded between 03/13/2017 12:20 PM and 03/13/2017 12:28 PM * Fluids: Intraprocedure Crystalloid Total None PRBCs: none (See Anesthesia Record/Report for Other Blood Products) Urine Output: (no blood products) Drains: None Disposition: awakened from anesthesia, extubated and taken to the recovery room in a stable condition, having suffered no apparent untoward event. Condition: doing well without problems (Please see the Surgical Encounter Summary for any Implant and Specimen details pertinent to this patient.) Infection Bundle used? N/A Associated attestation - Hany Chase MD - 03/28/2017 9:47 AM EDT I was the attending physician supervising the resident in the above care and I was present with theresident for the entire procedure. documented in this encounter Plan of Treatment Upcoming Encounters Date Type Department Care Team (Late st Contact Info) Description 10/18/2024 4:30 PM EDT Office Visit Dermatology at [facility] [address] [place] [address] Gary Kasper MD [address] [facility] [place] [address] documented as of this encounter Procedures Procedure Name Priority Date/Time Associated Diagnosis Comments SURGICAL PATHOLOGY REPORT Routine 03/13/2017 12:25 PM EDT SPECIMEN TO PATHOLOGY Routine 03/13/2017 12:25 PM EDT SPECIMEN TO PATHOLOGY Routine 03/13/2017 12:25 PM EDT SPECIMEN TO PATHOLOGY Routine 03/13/2017 12:25 PM EDT SPECIMEN TO PATHOLOGY Routine 03/13/2017 12:25 PM EDT SPECIMEN TO PATHOLOGY Routine 03/13/2017 12:25 PM EDT SPECIMEN TO PATHOLOGY Routine 03/13/2017 12:25 PM EDT SPECIMEN TO PATHOLOGY Routine 03/13/2017 12:25 PM EDT SPECIMEN TO PATHOLOGY Routine 03/13/2017 12:25 PM EDT BIOPSY ANORECTAL WALL (WRVU 4.04) 03/13/2017 12:04 PM EDT ANAL NEOPLASIA ANORECTAL EXAM, REQUIRING ANESTHESIA, DIAGNOSTIC (WRVU 1.8) 03/13/2017 12:04 PM EDT ANAL NEOPLASIA documented in this encounter Results * Surgical Pathology Report (03/13/2017 12:25 PM EDT) Final Diagnosis [id number] ? Location: [facility]; The signing pathologist has (i) examined the relevant preparation(s) for the specimen(s) and (ii) rendered or confirmed the diagnosis(es). . ? Addendum ADDENDUM DISCUSSION Part H: PAS special stain was reviewed with result supporting the diagnosis. Electronically signed by: ??Janina Le MD Verified: ??03/20/2017 ?Pathologist ?Surgical Pathology DIAGNOSIS A - Left anal canal, biopsy: Rectal glandular mucosa, negative for dysplasia. B - Right anal canal, biopsy: Anal glandular and squamous junctional mucosa with focal mild atypia, no definite dysplasia is seen. C - Anal verge/anterior, biopsy: Anal squamous epithelium with mild chronic inflammation and parakeratosis, negative for dysplasia. D - Posterior anal verge, biopsy: Anal squamous epithelium with mild chronic inflammation and parakeratosis, negative for dysplasia. E - Left anal verge, biopsy: Anal squamous epithelium with focal mild atypia, no definite dysplasia is seen. F - Right anal verge, biopsy: Anal squamous epithelium with mild chronic inflammation and parakeratosis, negative for dysplasia. G - Anterior anal canal, biopsy: Anal squamous epithelium with mild chronic inflammation and parakeratosis, negative for dysplasia. H - Posterior anal canal, biopsy: Anal squamous epithelium, negative for dysplasia. Electronically signed by: ??Janina Le MD Verified: ??03/18/2017 ?Pathologist DISCUSSION Case reviewed with Dr. Alissa Mancini, who agrees with the diagnosis. ADDITIONAL STUDIES Immunohistochemistry Studies: Formalin-fixed, paraffin-embedded tissue sections are studied using the polymer technique with appropriate positive and negative controls. ?These IHC studies provide the pathologist with adjunctive diagnostic information. Antibody specificity has been verified by testing antibodies on a series of in-house tissues with known immunohistochemical performance characteristics. The clinical interpretation of any antibody positive staining or its absence is evaluated within the context of clinical presentation, morphology, histopathological criteria and other diagnostic tests. . ADDITIONAL STUDIES Block ? Antibody ?Result (Positive/Negative) G1 ? p16 ?Negative H1 ? p16 ?Weak and scattered staining in epithelium ? p53 ?Rare and weak staining in epithelium ? CK20 ? Negative CLINICAL INFORMATION Specimen Submitted: A - Left anal canal B - Right anal canal C - Anal verge/ anterior D - Posterio anal verge E - Left rupa verge F - Right anal verge G - Anterior rupa canal H - Posterior anal canal Clinical History: Anal neoplasia Clinical Diagnosis: Same SPECIMEN PROCESSING A - Labeled/Fixative: Left anal canal, fresh. Quantity/Size: Single, 0.3 cm. Tissue Description: ??Soft, pink tissue . Sections/Processing: (T1) B - Labeled/Fixative: Right anal canal, fresh. Quantity/Size: Single, 0.4 cm. Tissue Description: ??Soft, pink tissue . Sections/Processing: (T1) C - Labeled/Fixative: Anal verge/anterior, fresh. Quantity/Size: Single, 0.2 cm. Tissue Description: ??Soft, johnson tissue . Sections/Processing: (T1) D - Labeled/Fixative: Posterior anal verge, fresh. Quantity/Size: Single, 0.3 cm. Tissue Description: ??Soft, johnson tissue . Sections/Processing: (T1) E - Labeled/Fixative: Left anal verge, fresh. Quantity/Size: Single, 0.3 cm. Tissue Description: ??Soft, pink tissue . Sections/Processing: (T1) F - Labeled/Fixative: Right anal verge, fresh. Quantity/Size: Single, 0.2 cm. Tissue Description: ??Soft, johnson tissue . Sections/Processing: (T1) G - Labeled/Fixative: Anterior anal canal, fresh. Quantity/Size: Single, 0.3 cm. Tissue Description: ??Soft, pink tissue . Sections/Processing: (T1) H - Labeled/Fixative: Posterior anal canal, fresh. Quantity/Size: Single, 0.4 cm. Tissue Description: ??Soft, pink tissue . Sections/Processing: (T1) ??sns 03/20/2017 10:[address] [facility] GI Biopsy 03/13/2017 12:2 5 PM EDT 03/13/2017 12:25 PM EDT GI Biopsy 03/13/2017 12:2 5 PM EDT 03/13/2017 12:25 PM EDT GI Biopsy 03/13/2017 12:2 5 PM EDT 03/13/2017 12:25 PM EDT GI Biopsy 03/13/2017 12:2 5 PM EDT 03/13/2017 12:25 PM EDT GI Biopsy 03/13/2017 12:2 5 PM EDT 03/13/2017 12:25 PM EDT GI Biopsy 03/13/2017 12:2 5 PM EDT 03/13/2017 12:25 PM EDT GI Biopsy 03/13/2017 12:2 5 PM EDT 03/13/2017 12:25 PM EDT GI Biopsy 03/13/2017 12:2 5 PM EDT 03/13/2017 12:25 PM EDT Hany Chase MD PATHOLOGY/CYTOLOGY ORDERABLES [facility] [place] [address] * Specimen to Pathology (surgical or derm) (03/13/2017 12:25 PM EDT) AP Specimen 03/13/2017 12:2 5 PM EDT 03/13/2017 12:[address] [facility] - 03/13/2017 12:25 PM EDT Specimen requisition ordered. ??Separate Pathology report to follow Hany Chase MD PATHOLOGY/CYTOLOGY ORDERABLES Performing Organization Address [facility]/[place] [address] * Specimen to Pathology (surgical or derm) (03/13/2017 12:25 PM EDT) AP Specimen 03/13/2017 12:2 5 PM EDT 03/13/2017 12:25 PM EDT [facility] - 03/13/2017 12:25 PM EDT Specimen requisition ordered. ??Separate Pathology report to follow Hany Chase MD PATHOLOGY/CYTOLOGY ORDERABLES Performing Organization Address [facility] [place] [address] * Specimen to Pathology (surgical or derm) (03/13/2017 12:25 PM EDT) AP Specimen 03/13/2017 12:2 5 PM EDT 03/13/2017 12:25 PM EDT [facility] - 03/13/2017 12:25 PM EDT Specimen requisition ordered. ??Separate Pathology report to follow Hany Chase MD PATHOLOGY/CYTOLOGY ORDERABLES Performing Organization Address [facility] [place] [address] * Specimen to Pathology (surgical or derm) (03/13/2017 12:25 PM EDT) AP Specimen 03/13/2017 12:2 5 PM EDT 03/13/2017 12:25 PM EDT [facility] - 03/13/2017 12:25 PM EDT Specimen requisition ordered. ??Separate Pathology report to follow Hany Chase MD PATHOLOGY/[place] [address] * Specimen to Pathology (surgical or derm) (03/13/2017 12:25 PM EDT) AP Specimen 03/13/2017 12:2 5 PM EDT 03/13/2017 12:[address] [facility] - 03/13/2017 12:25 PM EDT Specimen requisition ordered. ??Separate Pathology report to follow Hany Chase MD PATHOLOGY/[place] [address] * Specimen to Pathology (surgical or derm) (03/13/2017 12:25 PM EDT) AP Specimen 03/13/2017 12:2 5 PM EDT 03/13/2017 12:[address] [facility] - 03/13/2017 12:25 PM EDT Specimen requisition ordered. ??Separate Pathology report to follow Hany Chase MD PATHOLOGY/[place] [address] * Specimen to Pathology (surgical or derm) (03/13/2017 12:25 PM EDT) AP Specimen 03/13/2017 12:2 5 PM EDT 03/13/2017 12:25 PM EDT [facility] - 03/13/2017 12:25 PM EDT Specimen requisition ordered. ??Separate Pathology report to follow Hany Chase MD PATHOLOGY/[place] [address] * Specimen to Pathology (surgical or derm) (03/13/2017 12:25 PM EDT) AP Specimen 03/13/2017 12:2 5 PM EDT 03/13/2017 12:[address] [facility] - 03/13/2017 12:25 PM EDT Specimen requisition ordered. ??Separate Pathology report to follow Hany Chase MD PATHOLOGY/CYTOLOGY ORDERABLES [facility] [place] [address] documented in this encounter Visit Diagnoses Not on filedocumented in this encounter Administered Medications Inactive Administered Medications - up to 3 most recent administrations Medication Order MAR Action Action Date Dose Rate Site BUpivacaine-EPINEPHr ine 0.25 %-1:200,000 injection ONCE PRN, Starting on Mon03/13/17 at 1234, Until Mon03/13/17 at 1527, Intra-Operative (Intra-Procedure), Routine Given 03/13/2017 12:34 PM EDT 10 mLs 19- Surgical Site ketorolac (TORADOL) 15 mg/mL injection 1 dose, Starting on Mon03/13/17 at 1252, Until Mon03/13/17 at 1256, YESSI FOLEY: cabinet override ketorolac (TORADOL) injection 15 mg 15 mg, Intravenous, EVERY 6 HOURS PRN, Starting on Mon03/13/17 at 1251, Until Mon03/13/17 at 1527, Pain, Routine Given 03/13/2017 12:56 PM EDT 15 mg lactated Ringers infusion 1,000 mL 1,000 mL, at 100 mL/hr, Intravenous, CONTINUOUS, Starting on Mon03/13/17 at 1100, Until Mon03/13/17 at 1319, Day of Surgery (Day of Procedure) New Bag 03/13/2017 10:55 AM EDT 1,000 mLs 100 mL/hr lidocaine (PF) (XYLOCAINE) 10 mg/mL (1 %) injection ONCE PRN, Starting on Mon03/13/17 at 1235, Until Mon03/13/17 at 1527, Intra-Operative (Intra-Procedure), Routine Given 03/13/2017 12:35 PM EDT 100 mg 19- Surgical Site lidocaine (XYLOCAINE) 10 mg/mL (1 %) injection 3 mg 3 mg (0.3 mL), Subcutaneous, ONCE PRN, 1 dose, Starting on Mon03/13/17 at 1035, Until Mon03/13/17 at 1055, for discomfort with PIV insertion, Day of Surgery (Day of Procedure), Routine Given 03/13/2017 10:55 AM EDT 3 mg documented in this encounter Active and Recently Administered Medications Times are shown in EDT. Continuous Medication Order 03/11/2017 03/12/2017 03/13/2017 lactated Ringers infusion 1,000 mL (CANCELED) 1,000 mL, at 100 mL/hr, Intravenous, CONTINUOUS, Starting on Mon03/13/17 at 1100, Until Mon03/13/17 at 1319, Day of Surgery (Day of Procedure) 1055 (New Bag - Prov ider: Evelyn Espinosa RN) PRN Medication Order 03/11/2017 03/12/2017 03/13/2017 BUpivacaine-EPINEPHrine 0.25 %-1:200,000 injection (CANCELED) ONCE PRN, Starting on Mon03/13/17 at 1234, Until Mon03/13/17 at 1527, Intra-Operative (Intra-Procedure), Routine 1234 (Given - Provid er: Hany Chase MD) ketorolac (TORADOL) injection 15 mg 15 mg, Intravenous, EVERY 6 HOURS PRN, Starting on Mon03/13/17 at 1251, Until Mon03/13/17 at 1527, Pain, Routine 1256 (Given - Provid er: Yessi Foley RN) lidocaine (PF) (XYLOCAINE) 10 mg/mL (1 %) injection (CANCELED) ONCE PRN, Starting on Mon03/13/17 at 1235, Until Mon03/13/17 at 1527, Intra-Operative (Intra-Procedure), Routine 1235 (Given - Provid er: Hany Chase MD) lidocaine (XYLOCAINE) 10 mg/mL (1 %) injection 3 mg (COMPLETED) 3 mg (0.3 mL), Subcutaneous, ONCE PRN, 1 dose, Starting on Mon03/13/17 at 1035, Until Mon03/13/17 at 1055, for discomfort with PIV insertion, Day of Surgery (Day of Procedure), Routine 1055 (Given - Provid er: Evelyn Espinosa, HEATHER) documented in this encounter Care Teams Drafter Assistant Relationship Specialty Start Date End Date Pattie Acosta PA [address] [place] [address] PCP - General Family Medicine 06/04/15 02/04/20 documented as of this encounter
--- OUTSIDE RECORDS SUMMARY | 2024-04-29 13:13 | XMS_ITS | Encounter Summary ---
Author Organization [facility] [place] [address] Care Team Providers Care Gas Singer Name Role Phone Pattie Acosta Primary Care Provider +1- [phone] Encounter Details Date Type Department Care Team (Late st Contact Info) Description 11/10/2016 Orders [place] [id number] Martha Goodman, RN Social History Tobacco Use Types Packs/Day Years [...] 4:30 PM EDT Office Visit Dermatology at [facility] [address] [place] [address] Gary Kasper MD [address] [address] documented as of this encounter Visit Diagnoses Not on filedocumented in this encounter Care Teams Gas Singer Relationship Specialty Start Date End Date Pattie Acosta PA [address] [place] [address] PCP - General Family Medicine 06/04/15 02/04/20 documented as of this encounter
--- OUTSIDE RECORDS SUMMARY | 2024-04-29 13:13 | XMS_ITS | Encounter Summary ---
Author Organization [facility] [place] [address] Care Team Providers Care Bushing Press Operator Name Role Phone Pattie Acosta Primary Care Provider +1- [phone] Encounter Details Date Type Department Care Team (Latest Contact Info) Description 12/12/2019 3:20 PM EDT TH Visit (TeleHealth) [place] [address] Nas Gutierres MD [facility] [place] [address] Benign prostatic hyperplasia, unspecified whether lower urinary tract symptoms present Social History Tobacco Use Types Packs/Day Years [...] as of this encounter Progress Notes * Nas Gutierres MD - 12/12/2019 3:20 PM EDT Called patient for the appointment. Patient consented to proceed with a Telehealth visit and understands that this will be billed similar to a clinic visit. HPI 64M referred for LUTS. 10/07/19 Patient reports he has a weak stream and nocturia for ~1 month but slowly worsened over the last year. He is not on medications for urinary sx. He was prescribed flomax but didn't take due sulfa allergy(swelling/irritation locally after topical administration). Also prescribed finasteride, but didn'twant to start for fear of ED. IPSS 22 (10/17/5//5/0/2), QoL 2 Last PSA 3.5 (09/24/19) No prostate imaging. Erectile fxn: Excellent Takes ASA81 for ppx. 12/12/19 Patient did not tolerate flomax due to nasal congestion and dizziness. He took it for a month and nothing changed with his urinary symptoms. ROS: 10 systems reviewed and were negative other than noted in the HPI PMH and PSH Reviewed. No relevant changes. Assessment: 64M with obstructive LUTS. He failed flomax due to side effects, but it also did not help his symptoms which makes me suspicious for a possible median lobe. Discussed other options including trial of finasteride, UroLift, TURP, PVP. Patient is interested in pursuing Urolift if he is a candidate. Therefore we will plan on an office cystoscopy to assess for median lobe. Plan: - Schedule office cysto to assess for UroLift Greater than 50% of the TeleHealth visit was spent on the phone with the patient. Total time of this telehealth visit including decision making and planning was 15min Nas Gutierres MD 12/12/2019 2:21 PM documented in this encounter Plan of Treatment Upcoming Encounters Date Type Department Care Team (Late st Contact Info) Description 10/18/2024 4:30 PM EDT Office Visit Dermatology at [facility] [address] [place] [address] Gary Kasper MD [address] [place] [address] documented as of this encounter Visit Diagnoses Diagnosis Benign prostatic hyperplasia, unspecified whether lower urinary tract symptoms present documented in this encounter Care Teams Bushing Press Operator Relationship Specialty Start Date End Date Pattie Acosta PA [address] [place] [address] PCP - General Family Medicine 06/04/15 02/04/20 documented as of this encounter
--- OUTSIDE RECORDS SUMMARY | 2024-04-29 13:13 | XMS_ITS | Encounter Summary ---
Author Organization [facility] [place] [address] Care Team Providers Care Concert Pianist Name Role Phone Pattie Acosta Primary Care Provider +1- [phone] Encounter Details Date Type Department Care Team (Late st Contact Info) Description 09/15/2015 4:20 PM EDT Office Visit [place] [address] Nadeem Pavon MD [facility] [place] [address] Reactive cervical nodes Social History Tobacco Use Types Packs/Day Years [...] Sign Reading Time Taken Comments Blood Pressure 114/93 09/15/2015 4:20 PM EDT Pulse 85 09/15/2015 4:20 PM EDT Temperature - - Respiratory Rate - - Oxygen Saturation - - Inhaled Oxygen Concentration - - Weight 78.9 kg (174 lb) 09/15/2015 4:20 PM EDT Height 175.3 cm (5' 9) 09/15/2015 4:20 PM EDT Body Mass Index 25.7 09/15/2015 4:20 PM EDT documented in this encounter Progress Notes * Nadeem Pavon MD - 09/15/2015 4:33 PM EDT Images from the original note were not included. Subjective: Patient ID: Ed Carrasco is a 60 y.o. male. HPI Ed Carrasco is seen in follow up of his nearly 1 year hx of a left neck mass. He was taken to the OR for excision of the mass about 2 weeks ago. Mass measuring 4cm x 2 cm x 2 cm. Pathology: DIAGNOSIS A - Neck mass, left, excision: ?? - Reactive lymph node hyperplasia. Negative for malignancy (see ? Discussion). He reported noting a mass in the left upper neck x July 2014 without other precipitating events. Mass has caused tightness in wearing shirt and collar but otherwise denies appreciable change in size or growth. He denies having sore throat or other upper aerodigestive tract complaint at the timeand none since. He denies constitutional symptoms, no other masses in the rest of his body. He brought it to the attention of his PCP recently and underwent imaging. NO tissue biopsy. Reports episodic hoarseness with voice loss which lasts up to 30 minutes at a time, no hx of GERD. NO pain. Voice returns on its own. At laryngoscopy, no anomaly noted. Former 20 pk year smoker until 12 years ago, non drinker. No use of chewing tobacco. History reviewed. No pertinent past medical history. Past Surgical History Procedure Laterality Date ??? Colon surgery ??? Hernia repair ??? Pro excision branc clft cyst, deep Left 08/31/2015 EXCISION BRANCHIAL CLEFT CYST, VESTIGE OR FISTULA, DEEP [facility] ??? Pro laryngoscopy, direct, dx, op microscop N/A 08/31/2015 LARYNGOSCOPY, WITH MICROSCOPE performed by Nadeem Pavon MD at [facility] OR Current outpatient prescriptions: ??? multivitamin (THERAGRAN) tablet, Take 1 tablet by mouth daily., Disp: , Rfl: Allergies Allergen Reactions ??? Vicodin [Hydrocodone-Acetaminophen] Nausea And Vomiting ??? Percocet [Oxycodone-Acetaminophen] ??? Sulfa (Sulfonamide Antibiotics) Patient Active Problem List Diagnosis Code ??? Atypical moles D23.9 ??? Rosacea L71.9 ??? History of atypical nevus Z87.2 ??? Acne rosacea L71.9 ??? Neck mass R22.1 Family History Problem Relation Age of Onset ??? Heart Disease Mother ??? Diabetes Other There is no pertinent family history of otolaryngologic problems Review of Systems: A complete review of constitutional, eyes, cardiovascular, respiratory, GI, , musculo-skeletal, skin, endocrine, psychiatric, hematologic, lymphatic and immunologic systems is completed and is as noted in the HPI. All other systems are otherwise negative. History Social History ??? Marital Status: Single Spouse Name: N/A Number of Children: N/A ??? Years of Education: N/A Occupational History ??? Not on file. Social History Main Topics ??? Smoking status: Former Smoker Quit date: 2002 ??? Smokeless tobacco: Not on file Comment: Quit appox 12 yrs ago ??? Alcohol Use: No ??? Drug Use: No ??? Sexual Activity: Not Currently Other Topics Concern ??? Not on file Social History Narrative [email or web address] in the last 26 years. Review of Systems Objective: Physical Exam Constitutional: He is oriented to person, place, and time. He appears well- developed. No distress. HENT: Head: Normocephalic. Right Ear: Tympanic membrane, external ear and ear canal normal. No tenderness. No middle ear effusion. Left Ear: Tympanic membrane, external ear and ear canal normal. No tenderness. No middle ear effusion. Nose: Nose normal. No mucosal edema, sinus tenderness, nasal deformity or septal deviation. Mouth/Throat: Uvula is midline, oropharynx is clear and moist and mucous membranes are normal. No oral lesions. No trismus in the jaw. Normal dentition. No oropharyngeal exudate. Eyes: Conjunctivae and EOM are normal. Pupils are equal, round, and reactive to light. No scleral icterus. Neck: Normal range of motion. Neck supple. Carotid bruit is not present. No tracheal deviation present. No thyroid mass and no thyromegaly present. Pulmonary/Chest: Effort normal. No stridor. No respiratory distress. Lymphadenopathy: He has cervical adenopathy (palpable moboile non tender left upper neck mass 2 cm x 1.5 cm, zone 2,no other mass). Neurological: He is alert and oriented to person, place, and time. He has normal reflexes. No cranial nerve deficit. Skin: Skin is warm. He is not diaphoretic. No erythema. Psychiatric: He has a normal mood and affect. His behavior is normal. Judgment and thought content normal. Nursing note and vitals reviewed. PET-CT: symmetric FDG activity in both palatine tonsils, no other focal mass in mucosae H&N. Has small number of mild to moderately FDG nodes in both sides of the neck. Cystic mass showing NO FDGactivity. Assessment and Plan: Patient with 12 mo hx of left neck mass which has not changed. Mass excised and c/w reactive adenopathy. TO start doing exercised for shoulder and lower lip. F/u 2 mo documented in this encounter Plan of Treatment Upcoming Encounters Date Type Department Care Team (Late st Contact Info) Description 10/18/2024 4:30 PM EDT Office Visit Dermatology at [facility] [address] [place] [address] Gary Kasper MD [address] [place] [address] documented as of this encounter Visit Diagnoses Diagnosis Reactive cervical nodes Enlargement of lymph nodes documented in this encounter Care Teams Concert Pianist Relationship Specialty Start Date End Date Pattie Acosta PA [address] [place] [address] PCP - General Family Medicine 06/04/15 02/04/20 documented as of this encounter
--- OUTSIDE RECORDS SUMMARY | 2024-04-29 13:13 | XMS_ITS | Encounter Summary ---
Author Organization [facility] [place] [address] Care Team Providers Care Family Assessment Worker Name Role Phone Pattie Acosta Primary Care Provider +1- [phone] Reason for Visit * Reason Comments Skin Check h/o melanoma in situ , 2009 Encounter Details Date Type Department Care Team (Late st Contact Info) Description 05/22/2017 11:30 AM EST Office Visit Dermatology at [facility] [address] [place] [address] Gary Kasper MD [address] [facility] [address] Vickie Gomez PA [facility] [address] [facility] [address] Rosacea; Multiple benign nevi; History of melanoma in situ; Dermatofibroma; Lentigines; Dysplastic nevus Social History Tobacco Use Types Packs/Day Years [...] Progress Notes * Vickie Gomez PA - 05/22/2017 11:30 AM EST Images from the original note were not included. DERMATOLOGY - ESTABLISHED PATIENT CLINIC NOTE Date of service: 05/22/2017 Ed Carrasco : 1955 Dermatology Physician Agricultural Service Technician Note: Vickie (Ana) SOLEDAD GomezC Chief Complaint Patient presents with ??? Skin Check h/o melanoma in situ, 2009 This is an established patient, last seen by myself on 01/02/2017. HPI: Ed Carrasco is a 61 y.o. male who presents for today for a full skin exam. No spots of concern today. 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 Skin History: 09/23/2009: Central upper back, shave [...] to Visit Medication Sig Dispense Refill ??? acetaminophen (TYLENOL) 325 mg Tablet Take 2 tablets by mouth every 4 hours as needed for Pain.30 tablet 1 ??? imiquimod (ALDARA) 5 % Cream in Packet Apply topically three times a week. 36 each 0 ??? 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 Diagnosis/Assessment/Treatment Plan: 1. Rosacea - Scattered red papules/pustules on central face with diffuse erythema and telangiectasia. - Discussed trigger avoidance such as sunlight, hot spicy foods, and alcohol. - Advised patient rosacea is a chronic condition involving the central face. It is a condition she will have to control rather than cure. - Continue Protopic 0.1% ointment, apply to face as needed. - Advised patient it is okay to increase Doxycyline dose if he should flare. Prescriptions: - Rx: Doxycycline 50mg, take 1 capsule daily. (#-90, 3 refills). 2. History of MIS - Central upper back: well healed scar s/p excision. - No cervical, supraclavicular or axillary lymphadenopathy noted. - No evidence of recurrence. - Continue to monitor. 3. Dermatofibroma (DF) - Left upper arm: firm papule, centrally raised and sclerotic, with peripheral hyperpigmentation and dimpling with lateral pressure. - Patient reassured of benign nature. - Advised patient to call if areas become inflamed or irritated. 4. Benign appearing nevi with even pigmentation and well defined margins are noted - Trunk and extremities: multiple, 0.3-0.5cm, medium-brown, evenly- pigmented macules and papules. All with regular pigment pattern on dermoscopy. No pigmented lesions suspicious for melanoma. - Patient reassured of benign nature. - No lesions suspicious for melanoma identified on exam today. Will continue to monitor. - Discussed importance of sun protection, sun avoidance strategies, protective clothing, and sunscreen. I discussed warning signs for skin cancer, including the ABCDEs of melanoma. ?? - Observe skin for change in color, size or character. Call if such occur. 5. Lentigines - Trunk and extremities:0.3-0.6cm light-brown evenly pigmented, well-demarcated macules. - Patient reassured of benign nature. - Observe skin for change in color, size or character. Call if such occur. 6. Benign appearing dysplastic nevus superior to but not involving the melanoma in situ scar - Leftupper back superior to excision scar: 3mm irregular medium brown macule. - Will continue to monitor. - Observe skin for change in color, size or character. Call if such occur. [facility] [id number] RTC in 6 months for a full [...] all concerns were addressed. Note initiated by NELSON VARGAS, Clinical Scribe - I am documenting this encounter acting as the scribe for and in the presence of Vickie Lacey) JAQUELIN Gomez I performed the above scribed service and agree with the accuracy of the documentation in this encounter. Reviewed and signed by Vickie Gomez PA-C (Bri) Dermatology [facility] Patient seen with indirect supervision of staff physician: Gary Kasper MD Section of Dermatology [facility] * Gary Kasper MD - 05/22/2017 11:30 AM EST Examination Focused examination of the back significant for the following: ?? No evidence of recurrence in scars on the upper back Assessment and Plan History of Melanoma, Back No evidence of recurrence Patient seen in conjunction with Ana Kasper MD FAAD Section of Dermatology [facility] documented in this encounter Plan of Treatment Upcoming Encounters Date Type Department Care Team (Late st Contact Info) Description 10/18/2024 4:30 PM EDT Office Visit Dermatology at [facility] [address] [place] [address] Gary Kasper MD [address] [facility] [address] documented as of this encounter Visit Diagnoses Diagnosis Rosacea Multiple benign nevi Benign neoplasm of skin, site unspecified History of melanoma in situ Personal history of malignant melanoma of skin Dermatofibroma Benign neoplasm of skin, site unspecified Lentigines Other dyschromia Dysplastic nevus Benign neoplasm of skin, site unspecified documented in this encounter Care Teams Family Assessment Worker Relationship Specialty Start Date End Date Pattie Acosta PA [address] [place] [address] PCP - General Family Medicine 06/04/15 02/04/20 documented as of this encounter
--- OUTSIDE RECORDS SUMMARY | 2024-04-29 13:13 | XMS_ITS | Encounter Summary ---
Author Organization [facility] [place] [address] Care Team Providers Care Race Engine Builder Name Role Phone None Primary Care Provider Unavailabl e Encounter Details Date Type Department Care Team (Latest Contact Info) Description 04/08/2020 11:00 AM EDT TH Visit (TeleHealth) [place] [address] Nas Gutierres MD [facility] [place] [address] Benign prostatic hyperplasia, unspecified whether lower urinary [...] Progress Notes * Nas Gutierres MD - 04/08/2020 11:00 AM EDT Called patient for the appointment. Patient consented to proceed with a Telehealth visit and understands that this will be billed similar to a clinic visit. [facility] SECTION OF UROLOGY POSTOPERATIVE VISIT Name: Ed Carrasco : 1955 Date: 04/08/2020 History of Present Illness: Ed Carrasco is a 64 y.o. male who underwent a UroLIFT on 02/19/20, which was uncomplicated. Preop IPSS 22 (5//5/4/5/0/2), QoL 2 Mild/mod median lobe on cysto (patient wanted UroLift knowing he may need PVP in future) Postop Reports no significant change. Not worse either. IPSS: 23 (08/19/5/4/5/0/3), QoL 3 Incontinence? no Hematuria? no Dysuria?no Antegrade ejaculation? Yes ROS: 10 systems reviewed and were negative other than noted in the HPI Assessment: Ed Carrasco is a 64 y.o. male with BPH who is 6 weeks status post a UroLIFT. He has recovered well but does not notice much of a difference in his flow. I explained that this means the middle lobe is likely causing most of his symptoms. Therefore if symptoms are affecting QoL, I recommend considering PVP of median lobe vs the entire adenoma. The maindifference would be maintaining antegrade ejactulation Patient would like to hold off on doing anything for now. Plan: - Resume activity as tolerated - Follow-up in 6 months The patient expressed understanding and agreement with the above. Nas Gutierres MD Section of Urology [facility] Office: [phone] documented in this encounter Plan of Treatment Upcoming Encounters Date Type Department Care Team (Late st Contact Info) Description 10/18/2024 4:30 PM EDT Office Visit Dermatology at [facility] [address] [place] [address] Gary Kasper MD [address] [facility] [place] [address] documented as of this encounter Visit Diagnoses Diagnosis Benign prostatic hyperplasia, unspecified whether lower urinary tract symptoms present documented in this encounter Care Teams Race Engine Builder Relationship Specialty Start Date End Date None None PCP - General 02/13/20 01/24/21 documented as of this encounter
--- OUTSIDE RECORDS SUMMARY | 2024-04-29 13:13 | XMS_ITS | Encounter Summary ---
Author Organization [facility] [place] [address] Care Team Providers Care Fitness Coach Name Role Phone Pattie Acosta Primary Care Provider [phone] Reason for Visit * Reason Comments Skin Cancer Examination hx melanoma Rosacea * Consultation (Routine) - Closed Specialty Diagnoses / Procedures Referred By Linda hwang Referred To Contact Dermatology Diagnoses Rosacea, melanoma in situ Pattie Acosta PA [address] [place] [address] [facility] Dermatology [address] [place] [address] Referral ID Status Reason Start Date Expiration Date V isits Requested Visits Authorized [id number] Closed Consult, [facility] Connection [facility] PCP Updated and/or Approved 11/05/2015 11/04/2016 1 1 Encounter Details Date Type Department Care Team (Late st Contact Info) Description 11/23/2015 2:00 PM EDT Office Visit Dermatology at [facility] [address] [place] [id number] Cj Hooker MD [facility] [address] [place] [address] Vickie Gomez PA [facility] [address] [place] [address] Seborrheic dermatitis; Acne rosacea; History of melanoma in situ; Dermatofibroma; Psoriasis; Lentigines; Multiple benign nevi Social History Tobacco Use Types Packs/Day Years [...] as of this encounter Progress Notes * Cj Hooker MD - 11/25/2015 11:21 PM EDT New patient. Facial rash. See photo. Mostly pustular. But also has a scaly alda derm component. The combination can be difficult to treat. Steroid are no permitted for the alda derm as that cause worsening of rosacea. Discussed. Will go with Doxycycline to start. Warned. Patient seen in conjunction with Vickie Gomez PA-C (Bri) Signed by: CJ HOOKER MD Section of Dermatology [facility] * Vcikie Gomez PA - 11/23/2015 1:39 PM EDT Images from the original note were not included. DERMATOLOGY - NEW PATIENT CONSULT NOTE Date of service: 11/23/2015 Ed Carrasco : 1955 Dermatology Physician Floor Helper Note: Vickie Gomez PA-C (Bri) Chief Complaint Patient presents with ??? Skin Cancer Examination hx melanoma ??? Rosacea Ed Carrasco is a 60 y.o. male. This is a new patient to me and to the clinic. Seen in consultation at the request of Pattie Acosta specifically for the evaluation and management of the above problem. HPI: Mr. Carrasco presents for discussion and treatment of facial redness as well as a full skin cancer examination. He is transferring his care from Dr. De Dios, whom he last saw in August 2014. He has a history of rosacea, previously treated with Sulfacet, Metrogel, hydrocortisone 1% and clindamycin, all of which are not ineffective. He reports the Sulfacet blistered his forehead. He useshydrocortisone 1% cream most often but has not applied it in 3 days. He recently took [id number] mg BID x 10 days which did not help. He only uses mild soap on his face and avoids the sun. Today is a good day for his face. He has a history of MIS in 2009. He feels well and has no new areas of concern. He performs self skin exams often. 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 Excised 10/15/09 Rosacea Seborrheic dermatitis Psoriasis Medical History: Patient Active Problem List Diagnosis Code ??? Atypical moles D22.9 ??? Rosacea L71.9 ??? History of atypical nevus Z87.2 ??? Acne rosacea L71.9 ??? Neck mass R22.1 No Defibrillator/pacemaker No Anti-coagulants Medications: Current Outpatient Prescriptions on File Prior to Visit Medication Sig Dispense Refill ??? ibuprofen (ADVIL;MOTRIN) 600 mg Tablet Take 600 mg by mouth 2 times daily. ??? multivitamin (THERAGRAN) tablet Take 1 tablet by mouth daily. No current facility-administered medications on file prior to visit. Allergies: Allergies Allergen Reactions ??? Vicodin [Hydrocodone-Acetaminophen] Nausea And Vomiting ??? Percocet [Oxycodone-Acetaminophen] ??? 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 Skin: Patient was asked to dress to their comfort level for today's exam. A full skin examination was performed. This includes the head, neck, face and scalp including behind the ears. The chest, abdomen, back, and axillae, as well as the arms, hands, palms, fingers. Legs, feet, toes and soles werealso examined. Buttocks and breasts were also examined with patient consent. Genitalia were not examined. Baer Skin Type: 2 Specific skin findings: 1. Across the forehead, nasolabial folds: Yellowish, greasy scaly overlying erythematous patches. Several papules and pustules noted. Verbal consent was given today to obtain and chart today's photo. Photo taken by Vickie Gomez (Bri). 2. Back: Multiple, medium-brown, evenly-pigmented macules and papules. All with regular pigment pattern on dermoscopy. No pigmented lesions suspicious for melanoma. 3. Sun-exposed areas: 0.3-0.6cm light-brown evenly pigmented, well-demarcated macules 4. Bilateral elbows: Scattered well-demarcated, thick erythematous plaques with silvery scale distributed 5. Left posterior upper arm: firm papule, centrally raised and sclerotic, with peripheral hyperpigmentation and dimpling with lateral pressure. 6. Left upper back: Well healed scar per skin history 7. Scattered red papules/pustules on central face with diffuse erythema and telangiectasia Diagnosis/Assessment/Treatment Plan: 1. Seborrheic dermatitis of face with concomittant rosacea, likely exacerbated by topical steroid use - Rx: Ketoconazole 2% cream - Apply to affected areas on face twice daily, as needed until he returns to clinic. (30g, 1 refill) - Rx: Protopic 0.1% ointment - Apply to the affected areas 1-2 times daily as needed for maintenance (30g, 1 refill) - Patient warned of possible burning and stinging with initial application - Patient is aware that we may need a prior authorization. Patient is aware not to start the Protopic until he returns to clinic to transition to this medication. 2. Benign appearing nevi - Patient reassured - Patient instructed to return to clinic for re-evaluation of area if notes change, growth, bleeding, etc. - Advised to watch for anything new or changing. 3. Lentigines - Discussed benign nature of lesion and provided reassurance. - Continue to monitor for changes and call if such occurs. 4. Psoriasis - No intervention at this time 5. Dermatofibroma 6. Scar w/ h//o MIS - Patient reassured there are no signs of recurrence - Advised patient to continue to monitor - The nature of sun-induced photo-aging and skin cancers was discussed. - Emphasized importance of sun protection, sun avoidance strategies, protective clothing, and sunscreen of an SPF 30 or above with UVA and UVB protection. - Discussed warning signs for skin cancer, including the ABCDEFs of melanoma. - Encouraged patient to monitor skin for signs of skin cancer or otherwise bothersome changes and call if such occur. 7. Rosacea (Acne rosacea) - Rx: Doxycycline 100mg - Take 1 tab twice daily for one month until he returns to clinic. - Instructed to take with a full glass of water and not to lie down within 30 minutes of taking dose. Advised of interaction with calcium, iron, MVI. Side effects and dosing of doxycycline reviewed, including but not limited to GI upset, esophagitis, cost of medication, photosensitivity, and pseudotumor cerebri He is aware of risk of sunburn and avoids the sun. LOS: [id number] RTC in 1 month for follow up rosacea and seborrheic dermatitis; sooner PRN. Patient will make this appointment on his way out today. Instructed to call with questions or concerns. Patient verbally expressed understanding. I specifically asked the patient at the end of the visit if there were any further concerns or questions and the patient verbally stated there were no other concerns or questions. All questions were answered and all concerns were addressed. Patient notified that this note will be sent to referring provider. Note initiated by Keisha Rincon LPN and Magi William, Clinical Scribe I am documenting this encounter acting as the scribe for and in the presence of Vickie Gomez PA-C (Bri) I performed the above scribed service and agree with the accuracy of the documentation in this encounter. Reviewed and signed by Vickie Gomez PA-C (Bri) Dermatology [facility] Patient seen in conjunction with attending physician: Cheyanne Hooker MD Section of Dermatology [facility] A copy of this report has been sent to the referring provider either by electronic messaging or by fax. documented in this encounter Plan of Treatment Upcoming Encounters Date Type Department Care Team (Late st Contact Info) Description 10/18/2024 4:30 PM EDT Office Visit Dermatology at [facility] [address] [place] [address] Gary Kasper MD [address] [facility] [place] [address] documented as of this encounter Visit Diagnoses Diagnosis Seborrheic dermatitis Seborrheic dermatitis, unspecified Acne rosacea Rosacea History of melanoma in situ Personal history of malignant melanoma of skin Dermatofibroma Benign neoplasm of skin, site unspecified Psoriasis Other psoriasis Lentigines Other dyschromia Multiple benign nevi Benign neoplasm of skin, site unspecified documented in this encounter Care Teams Fitness Coach Relationship Specialty Start Date End Date Pattie Acosta PA [address] [place] [address] PCP - General Family Medicine 06/04/15 02/04/20 documented as of this encounter
--- OUTSIDE RECORDS SUMMARY | 2024-04-29 13:13 | XMS_ITS | Encounter Summary ---
[facility] [place] [address] Care Team Providers Care Portal Architect Name Role Phone Pattie Acosta Primary Care Provider [phone]- [phone] Reason for Visit * Consultation (Routine) - Specialty Diagnoses / Procedures Referred By Linda hwang Referred To Contact Urology Diagnoses Frequency of micturition Pattie Acosta PA [address] [place] [address] [facility] [place] [address] Referral ID Status Reason Start Date Expiration Date V isits Requested Visits Authorized [id number] Consult, Test & Treat Connection Center PCP Updated and/or Approved 09/25/2019 09/24/2020 12 12 Encounter Details Date Type Department Care Team (Latest Contact Info) Description 10/07/2019 2:00 PM EDT TH Visit (TeleHealth) [place] [address] Nas Gutierres MD [facility] [place] [address] Benign prostatic hyperplasia, unspecified whether lower urinary [...] Progress Notes * Nas Gutierres MD - 10/07/2019 2:00 PM EDT Called patient due to COVID-19 pandemic we are trying to limit non-urgent visits in the hospital. Patient consented to proceed with a Telehealth visit instead. He understands that this will be billedsimilar to a clinic visit. HPI 64M referred for LUTS. Patient reports he has a weak stream and nocturia for ~1 month but slowly worsened over the last year. He is not on medications for urinary sx. He was prescribed flomax but didn't take due sulfa allergy(swelling/irritation locally after topical administration). Also prescribed finasteride, but didn'twant to start for fear of ED. IPSS 22 (5/1/5/4/5/0/2), QoL 2 Last PSA 3.5 (09/24/19) No prostate imaging. Erectile fxn: Excellent Takes ASA81 for ppx. ROS: 10 systems reviewed and were negative other than noted in the HPI PMH and PSH Reviewed. No relevant changes. Assessment: 64M with obstructive LUTS. He has not tried flomax before. I explained that while there can be a cross- ractivity with SULFA allergies, it is very rare. Since his reaction to SULFA was not severe, we will try flomax. We reviewed symptoms to watch for. Also reviewed common side effects. He will NOT start finasteride at this time. Plan: - f/u 6 months - Will notify us sooner if he does not tolerate medication Greater than 50% of the TeleHealth visit was spent on the phone with the patient. Total time of this telehealth visit including decision making and planning was 30min Nas Gutierres MD 10/07/2019 2:09 PM documented in this encounter Plan of Treatment Upcoming Encounters Date Type Department Care Team (Late st Contact Info) Description 10/18/2024 4:30 PM EDT Office Visit Dermatology at [facility] [address] [place] [address] Gary Kasper [facility] [address] [facility] [address] documented as of this encounter Visit Diagnoses Diagnosis Benign prostatic hyperplasia, unspecified whether lower urinary tract symptoms present documented in this encounter Care Teams Portal Architect Relationship Specialty Start Date End Date Pattie Acosta PA [address] [place] [address] PCP - General Family Medicine 06/04/15 02/04/20 documented as of this encounter
--- OUTSIDE RECORDS SUMMARY | 2024-04-29 13:13 | XMS_ITS | Encounter Summary ---
Author Organization [facility] [place] [address] Care Team Providers Care Port Captain Name Role Phone None Primary Care Provider Unavailabl e Encounter Details Date Type Department Care Team (Latest Contact Info) Description 02/19/2020 7:05 AM EDT - 02/19/2020 9:44 AM EDT Hospital Encounter [place] [id number] Nas Gutierres MD [facility] [place] [address] BPH with obstruction/lower urinary tract symptoms; BPH with obstruction/lower urinary tract symptoms Discharge Disposition: Home Social History Tobacco Use Types Packs/Day Years [...] Mass Index 25.84 02/19/2020 7:15 AM EDT documented in this encounter Discharge Instructions * Discharge Instructions* Melanie Uribe RN - 02/19/2020 9:05 AM EDT Images from the original note were not included. General Anesthesia Discharge Instructions Go home and rest. You may be sleepy for several hours. Take it easy as sudden position changes may cause nausea and/or dizziness. Use caution on stairs. Do not smoke if you are alone. Follow a light to regular diet as tolerated today. If nausea occurs, start with clear liquids, and progress slowly to a regular diet. Do not drive, operate machinery, drink alcoholic beverages or make any legal decisions after havinggeneral anesthesia. The medications given change your reaction time and alter your judgement. IV site -- slight redness is normal, you can use warm compresses. If tenderness and redness increases or foul drainage occurs, please contact your M.D. Patients who have had endotracheal tubes/LMA (tubes used by the anesthesia staff to ensure a safe airway during your operation) may have a sore throat. This is normal and cold liquids or soothing lozenges will help ease this discomfort. Narcotic pain medications can cause constipation, please ask the surgeons office what they recommend for prevention of this. Some non-pharmaceutical means of constipation prevention include increasing intake of fluids, eating more fruits and vegetables as well as fruit juices. If you are uncomfortable and/or unable to urinate within 8 hours of discharge and it is before 5 pm, call your physician. If it is after 5pm go to the closest emergency room or call the hospital graphotype operator at [phone] and ask for physician national guard member covering for your physician. Questions or problems after 5pm or on a weekend: Call the [facility] graphotype operator at and ask for the physician national guard member covering for your doctor. Ruffin Catheter Care The Ruffin catheter is a tube that helps drain urine from the bladder. The urinary (Ruffin) catheter is placed into the bladder through the urethra, the opening through which urine passes. The catheter is held in place in the bladder by a small, water-filled balloon. In order to collect the urine that drains through the catheter, the catheter is connected to a bag. If you have a urinary (Ruffin) catheter, you will use the larger drainage bag at night while you aresleeping. You can use the leg bag during the day. Leg Bag (Day) Large Bag (Night) Attaching or removing a leg bag The leg bag is attached to your leg and allows you to move around more easily. Because the bag is hidden under your clothes, it may also make you feel more comfortable about the catheter. To attach or remove the leg ba. Wash your hands with soap and water. 2. Empty the large drainage bag. 3. Place a towel under the connection between the catheter and the bag. 4. Crimp or pinch off the soft rubber catheter tube with your fingers so that urine doesn't leak out while you disconnect the large drainage bag from the soft rubber catheter- without pulling. Do this by gently working the catheter off the tubing. 5. Clean the tip of the leg bag tubing with an alcohol pad, wiping away from the opening to avoid getting the tube dirty. Insert the tip of the leg bag tube into the catheter. 6. Place protective cap on large drainage bag. 7. Fasten the straps of the leg bag to your thigh. Secure the catheter itself to your leg with tape. Be sure to leave some slack in the catheter so that you don't put too much pressure on the bladder, urethra, and other parts of the body. Emptying the leg bag Please note that because a leg bag is smaller than a regular drainage bag, it will have to be emptied more frequently. Empty the leg bag when it is half-full, or at least twice a day. 1. Place a large plastic or metal container on the floor next to you. You may also empty the urine into the toilet. 2. Wash your hands with soap and water. 3. Open the leg bag and drain. 4. When the bag is empty, close the clamp or twist on the cap on the leg bag. 5. Wash your hands with soap and water. Care Tips ??? Arrange the catheter tubing so that it does not twist or loop. When you are getting into bed, hang the urine bag beside the bed. You can sleep in any position as long as the bedside bag is below your bladder. Do not place the urine bag on the floor. ??? Always keep your urine bag below your bladder, which is at the level of your waist. This will prevent urine from flowing back into your bladder from the tubing and urine bag, which could cause aninfection. ??? When you take a shower, you can keep the larger drainage bag in place and hang it on the rail in the shower area. ??? If no urine has drained from your catheter in more than 4 hours or if urine is leakage around the catheter onto your clothing with no urine draining through the catheter, please contact your Health care provider. ??? For any questions or concerns related to your catheter care or procedure please contact your Health Care Provider. Ruffin Catheter Removal at Home It is important to remove your catheter properly to help prevent infection and other complications.Follow the instructions below to safely remove your Ruffin catheter. 8. Wash your hands. 9. Empty the Ruffin bag and record the output if required. 10. Cut the valve off the ???Balloon Port?? as shown in the photo below. The valve will come off and water will trickle out of the tube. This is clean water that was inside the balloon at the tip ofthe catheter. Have a towel underneath. 11. Wait for all the water to trickle out. When it stops, the balloon inside your bladder has been deflated. 5. Pull the entire catheter out with a steady pull. Do not jerk it or yank it out. If there is significant resistance, do not pull harder. Call the number provided on your discharge paperwork for advice on how to proceed. 6. Throw all the tubing and the collection bag away. Try to urinate every 2 hours to keep your bladder empty for the first 8 hours after removing the Ruffin catheter. If you are uncomfortable and/or unable to urinate within 8 hours of Ruffin removal and it is before 5 pm, call your physician. If it is after 5pm go to the closest emergency room or call the hospital graphotype operator at [phone] and ask for physician national guard member covering for your physician. * Patient Instructions* Ruben Crane MD - 02/19/2020 8:53 AM EDT Instructions following Urolift Activity: No heavy lifting or strenuous activity for 2 weeks. No saddle activities (biking, motorcycle etc.) for 2 weeks. Urination: You will have a small amount of blood in your urine for the next 10- 14 days. This is normal; however, if you are passing large amounts of blood clots or your catheter stops draining pleasecall our office at [phone] before 5PM or [phone] after hours. It is normal to have some frequency, urgency and burning with urination for up to 2 weeks. Please call if you continue to have symptoms. Please remove the catheter tomorrow morning. Your nurse will teach you how Call Doctor for: Please call if you have copious blood in your urine, severe back or side pain, pain not controlled by pain medications, persistent nausea and vomiting, or for any fevers greater [id number] F. The number for questions is [phone] before 5 PM weekdays and [phone] after 5 PM and weekends. Pain Medication: You may use ibuprofen (motrin, advil) or acetaminophen (tylenol) if you are experiencing pain. Follow-up: You will follow up with Dr. Gutierres in 4-6 weeks. documented in this encounter Medications at Time of Discharge Medication Sig Dispensed Refills Start Date End Date buPROPion SR (Wellbutrin SR) 200 mg tablet sustained-release 12 hr Take 200 mg by mouth 2 times daily. aspirin 81 mg Tablet, Delayed Release (E.C.) Take 81 mg by mouth daily. multivitamin (THERAGRAN) tablet Take 1 tablet by mouth daily. doxycycline (VIBRAMYCIN) 50 mg CapsuleIndications:Ros acea Take 1 capsule daily. 60 capsule 5 01/21/2020 04/12/2021 ketoconazole (NIZORAL) 2 % Shampoo Apply to affected areas on torso daily until clear and then 1-2 times weekly. Lather, leave for 5-10 min, then rinse. 120 mL 1 11/05/2018 01/25/2021 acetaminophen (TYLENOL) 325 mg Tablet Take 2 tablets by mouth every 4 hours as needed for Pain. 30 tablet 1 03/13/2017 05/10/2022 ibuprofen (ADVIL;MOTRIN) 600 mg Tablet Take 600 mg by mouth 2 times daily. 05/10/2022 documented as of this encounter Progress Notes * Megha Norton RN - 02/19/2020 9:44 AM EDT Pt called for post op night but did need to remove the catheter in the night. He was having burningthat he couldn't tolerate. * Melanie Uribe RN - 02/19/2020 9:32 AM EDT Pt is alert and oriented x4, no c/o pain or discomfort. Ruffin intact and draining punch colored urine. Discharge instructions reviewed with pt and friend, verbalized understanding of catheter care, empty and removal. Discharge instructions given to friend for home reference. 0943--pt ambulated out to private car assisted by staff and friend * Maria De Jesus Stoddard RN - 02/18/2020 1:52 PM EDT During this call the patient was questioned regarding travel, fever, cough, SOB or other illness inthe last 14 days. Patient also questioned regarding any exposure to a COVID positive person, a person awaiting results from testing or a person in quarantine. Patient denies any positive responses to the above questions for themselves or their escort for theday of procedure. documented in this encounter H&P Notes * Ruben Crane MD - 02/18/2020 11:52 AM EDT Patient Name: Ed Carrasco Age: 64 y.o. Date of : 1955 Attending Provider: Nas Gutierres MD Ed Carrasco is a 64 y.o. male with history of BPH, presenting for planned Urolift. No recent changes to health status. MEDICAL AND SURGICAL HISTORY No past medical history on file. Past Surgical History: Procedure Laterality Date ??? COLON SURGERY ??? HERNIA REPAIR ??? PRO BIOPSY OF RECTUM N/A 03/13/2017 BIOPSY ANORECTAL WALL (WRVU 4.04) performed by Hany Chase MD at [facility] MAIN OR ??? PRO COLONOSCOPY, REMV LESN, SNARE N/A 03/05/2018 COLONOSCOPY, POLYPECTOMY, REMOVAL LESION BY SNARE (WRVU 4.67) performed by Ed Shah MD at [facility] ENDOSCOPY ??? PRO EXCISION BRANC CLFT CYST, DEEP Left 08/31/2015 EXCISION BRANCHIAL CLEFT CYST, VESTIGE OR FISTULA, DEEP [facility] ??? PRO LARYNGOSCOPY, DIRECT, DX, OP MICROSCOP N/A 08/31/2015 LARYNGOSCOPY, WITH MICROSCOPE performed by Nadeem Pavon MD at [facility] MAIN OR ??? PRO SURG DIAGNOSTIC EXAM, ANORECTAL N/A 03/13/2017 ANORECTAL EXAM, REQUIRING ANESTHESIA, DIAGNOSTIC (WRVU 1.8) performed by Hany Chase MD [facility] MAIN OR ALLERGIES Allergies Allergen Reactions ??? Vicodin [Hydrocodone-Acetaminophen] Nausea And Vomiting ??? Percocet [Oxycodone-Acetaminophen] Nausea Only ??? Sulfa (Sulfonamide Antibiotics) Other (See Comments) swelling ??? Tamsulosin Other (See Comments) Lightheadedness MEDICATIONS No current facility-administered medications on file prior to encounter. Current Outpatient Medications on File Prior to Encounter Medication Sig Dispense Refill ??? doxycycline (VIBRAMYCIN) 50 mg Capsule Take 1 capsule daily. 60 capsule 5 ??? buPROPion SR (Wellbutrin SR) 200 mg tablet sustained-release 12 hr Take 200 mg by mouth 2 timesdaily. ??? ketoconazole (NIZORAL) 2 % Shampoo Apply to affected areas on torso daily until clear and then 1-2 times weekly. Lather, leave for 5-10 min, then rinse. (Patient not taking: Reported on 01/20/2020)120 mL 1 ??? aspirin 81 mg Tablet, Delayed Release (E.C.) Take 81 mg by mouth daily. ??? acetaminophen (TYLENOL) 325 mg Tablet Take 2 tablets by mouth every 4 hours as needed for Pain.(Patient not taking: Reported on 01/20/2020) 30 tablet 1 ??? ibuprofen (ADVIL;MOTRIN) 600 mg Tablet Take 600 mg by mouth 2 times daily. ??? multivitamin (THERAGRAN) tablet Take 1 tablet by mouth daily. PHYSICAL EXAM Temp: [36 ??C (96.8 ??F)] Heart Rate: [72] Resp: [18] BP: (131)/(78) SpO2: [100 %] Heart Rate from SpO2: -- GEN: Resting comfortably in bed, conversant, NAD. CHEST: Normal work of breathing. CV: Sinus rhythm. 2+ pulses bilaterally. ABD: Soft, non-tender, non-distended. EXTR: Moving spontaneously. SKIN: Warm and dry. NEURO: Alert and follows commands. ASSESSMENT / PLAN 64 y.o. male presenting for Urolift for symptomatic BPH. Patient appears fit for surgery. The details, alternatives, risks, and benefits of the procedure were reviewed, and the patient wishes to proceed. Informed consent has been obtained. All questions were answered to the patient's satisfaction. Proceed with surgery. The patient's history and physical exam have been reviewed and completed. There has been no interval change from that of the pre-operative history and physical exam performed within the last 30 days. documented in this encounter Miscellaneous Notes * Op Note - Ruben Crane MD - 02/19/2020 8:46 AM EDT [facility] Operative Note Patient Name: Ed Carrasco : [id number] MR#: [id number] Case Date: 02/19/2020 Surgeon: Surgeon(s) and Role: * Nas Gutierres MD - Primary * Ruben Crane MD - Resident Preoperative diagnosis: BPH Postoperative diagnosis: BPH Procedure(s) (LRB): CYSTOURETHROSCOPY W/ INSERTION OF PERMANENT ADJUSTABLE TRANSPORSTATIC IMPLANT; SINGLE IMPLANT (N/A) CYSTOURETHROSCOPY W/ INSERTION OF PERMANENT ADJUSTABLE TRANSPORSTATIC IMPLANT; EA ADD'L IMPLANT (N/A) Findings: Trilobar enlargement, normal mucosa Anesthesia: General Estimated Blood Loss: 0 mL Specimens removed during surgery: None Drains: 16Fr ruffin Surgical Closure: NA Disposition: aroused from sedation, and taken to the recovery room in a stable condition Condition: doing well without problems (Please see the Surgical Encounter Summary for any Implant and Specimen details pertinent to this patient.) HPI/Surgical Indications: Ed Carrasco is a 64 y.o. male with history of BPH, presenting for planned Urolift. No recent changes to health status. Procedure Description: Patient was brought to the operating room and placed on the operating table in the supine position. Sedation was started and the patient was positioned in the dorsal lithotomy position. Patient received IV ancef for prophylactic antibiotics. A formal timeout was performed confirming patient name, medical record number, and procedure to be performed. Patient was prepped and draped in a standard sterile fashion. 20 cc of 2% lidocaine jelly was injected per urethra. A rigid cystoscope was passed easily through the urethra into the bladder. This revealed a normal anterior urethra and the prostatic urethra showing lateral lobe obstruction. The bladder was noted to have no trabeculation. We then deployed a total of 6 urethral lift implants and a total of 6 implants were seated. These were located at the 10 and 2 oclock positions bilaterally 2 cm distal to the bladder neck and just proximal to the verumontanum. At the conclusion the prostatic urethra was again inspected showing an open channel anteriorly.There was very minimal bleeding. A 16 Monegasque Ruffin catheter was placed with 10 cc in the balloon. Pa ángel tolerated the procedure well, there were no complications. I, the attending surgeon, performed the entire procedure. Infection Bundle used? N/A Associated attestation - Nas Gutierres MD - 02/19/2020 9:56 AM EDT Attestation: Case Date: 02/19/2020 I was present and I participated during the entire procedure (does not need to include opening and closing). Nas Gutierres MD 02/19/2020 documented in this encounter Plan of Treatment Upcoming Encounters Date Type Department Care Team (Late st Contact Info) Description 10/18/2024 4:30 PM EDT Office Visit Dermatology at [facility] [address] [place] [address] Gary Kasper MD [address] [facility] [facility] [address] documented as of this encounter Procedures Procedure Name Priority Date/Time Associated Diagnosis Comments Cysto Insertion Transstatic Implant Ea Addl (93080) 02/19/2020 8:22 AM EDT BPH with obstruction/lower urinary tract symptoms Cysto Insertion Transstatic Implant Single ([id number]) 02/19/2020 8:22 AM EDT BPH with obstruction/lower urinary tract symptoms CYSTOURETHROSCOPY W/ INSERTION OF PERMANENT ADJUSTABLE TRANSPORSTATIC IMPLANT; EA ADD'L IMPLANT Routine 02/19/2020 7:08 AM EDT BPH with obstruction/lower urinary tract symptoms CYSTOURETHROSCOPY W/ INSERTION OF PERMANENT ADJUSTABLE TRANSPORSTATIC IMPLANT; SINGLE IMPLANT Routine 02/19/2020 7:08 AM EDT BPH with obstruction/lower urinary tract symptoms documented in this encounter Visit Diagnoses Diagnosis BPH with obstruction/lower urinary tract symptoms- Primary Hypertrophy of prostate with urinary obstruction and other lower urinary tract symptoms (LUTS) documented in this encounter Admitting Diagnoses Diagnosis BPH with obstruction/lower urinary tract symptoms Hypertrophy of prostate with urinary obstruction and other lower urinary tract symptoms (LUTS) documented in this encounter Active and Recently Administered Medications Times are shown in EDT. Scheduled Medication Order 02/17/2020 02/18/2020 02/19/2020 ceFAZolin (Ancef) 2 g in dextrose 5% 100 mL infusion (COMPLETED) 2 g, Intravenous, PHOTOLITHOGRAPHIC STRIPPER TO O.R., 1 dose, On Mon02/19/20 at 0730, Administer over 30 Minutes, Day of Surgery (Day of Procedure), Indication for (Active or Suspected): Prophylaxis 0826 (Given - Provid er: Zaida Stevenson CRNA) Continuous Medication Order 02/17/2020 02/18/2020 02/19/2020 lactated ringers infusion (CANCELED) 1,000 mL, at 100 mL/hr, Intravenous, CONTINUOUS, Starting on Mon02/19/20 at 0730, Until Mon02/19/20 at 0944, Day of Surgery (Day of Procedure) 0821 (New Bag - Prov ider: Zaida Stevenson CRNA)0836 (Anesthesia Volume Adjustment - Provider: Zaida Stevenson CRNA) PRN Medication Order 02/17/2020 02/18/2020 02/19/2020 lidocaine ((GLYDO)) 2 % gel (CANCELED) ONCE PRN, Starting on Mon02/19/20 at 0843, Until Mon02/19/20 at 1144, Intra-Operative (Intra-Procedure), Routine 0843 (Given - Provid er: Nas Gutierres MD) documented in this encounter Care Teams Port Captain Relationship Specialty Start Date End Date None None PCP - General 02/13/20 01/24/21 documented as of this encounter
--- OUTSIDE RECORDS SUMMARY | 2024-04-29 13:13 | XMS_ITS | Encounter Summary ---
Author Organization [facility] [place] [address] Care Team Providers Care Construction Driver Name Role Phone Pattie Acosta Primary Care Provider +1- [phone] Encounter Details Date Type Department Care Team (Late st Contact Info) Description 03/05/2018 10:00 AM EDT - 03/05/2018 11:00 AM EDT Surgery [place] [address] Ed Shah MD [facility] [place] [address] COLONOSCOPY, POLYPECTOMY, REMOVAL LESION BY SNARE (WRVU 4.57) Social History Tobacco Use Types Packs/Day Years [...] Sign Reading Time Taken Comments Blood Pressure 106/74 03/05/2018 11:00 AM EDT Pulse 56 03/05/2018 10:35 AM EDT Temperature 36.7 ??C (98.1 ??F) 03/05/2018 9:10 AM ED T Respiratory Rate 18 03/05/2018 11:00 AM EDT Oxygen Saturation 97% 03/05/2018 11:00 AM EDT Inhaled Oxygen Concentration - - Weight - - Height - - Body Mass Index - - documented in this encounter Discharge Instructions * Discharge Instructions* Charly Thomas RN - 03/05/2018 10:43 AM EDT Colonoscopy and polyp removal What to expect after the procedure You may feel a little more gassy or bloated than usual, this is normal. You should expect the return of normal bowel function in the next 2 to 3 days. Because some polyps were removed, you may see a little blood with the next few bowel movements, this should be a small amount ( less than a few tablespoons) and will resolve on it's own. ACTIVITY Because of the sedation that you received Your judgement and reaction time are effected ?? Go home and rest for the remainder for the day. You may resume your normal activities tomorrow ?? Change from one position to the next slowly because you may lose your balance unexpectedly. ?? Be careful on stairs, as you may be unsteady. FOR THE NEXT 24 HRS ?? DO NOT DRIVE OR OPERATE MACHINERY ?? DO NOT DRINK ALCOHOLIC BEVERAGES ?? DO NOT SIGN LEGAL DOCUMENTS ?? If you are a smoker: DO NOT SMOKE WHILE YOU ARE ALONE Diet ?? Start by eating small portions of foods that ordinarily will not upset your stomach, avoid gas producing foods for the next few days. ?? Be gentle with what you choose to start with ?? Drink plenty of fluids ( unless your doctor has told you not to). Medicines Avoid medicines that influence the way your blood clots for the next week. These would include anti-inflammatory medicine, such as ibuprofen( Advil, Motrin) and naproxen ( Aleve). If you need something for discomfort, Tylenol (Acetaminophen) is safe if used as directed. Your Doctor will tell you when to restart your prescribed blood thinners The IV site-- slight tenderness, or redness is normal, you can use warm compresses if you get concerned. If the tenderness +/or redness increases or foul drainage and a red streak occurs, please contact your PCP immediately. When should you call for help? Call 911 anytime you think you may need emergency care. For example If you pass out (loss of consciousness) If you pass maroon or bloody stools If you have severe belly pain Call your healthcare provider or seek immediate medical care if: Your stools are black or tar like Your stools have streaks of blood that is more pronounced with each BM You have belly pain, or your belly is swollen and firm You vomit You have a fever You are very dizzy Watch closely for changes in your health, and be sure to contact your doctor if you have any problems. Your Doctor will let you know when you will need your next colonoscopy. The results of your test and your risk for colorectal cancer will help your doctor decide how often you need to be checked. Monday-Monday Same Day Endo [phone] 7a-8p Otherwise contact [phone] and ask to speak to the food counter attendant superintendent container terminal Follow up care is a underwood part of your treatment and safety. Be sure to make and go to all appointments, and call your doctor if you are having problems. Discharge instructions reviewed with patient who expresses understanding documented in this encounter Medications at Time of Discharge Medication Sig Dispensed Refills Start Date End Date aspirin 81 mg Tablet, Delayed Release (E.C.) Take 81 mg by mouth daily. multivitamin (THERAGRAN) tablet Take 1 tablet by mouth daily. doxycycline (VIBRAMYCIN) 50 mg CapsuleIndications:Sherri cea Take 1 capsule daily. 90 capsule 3 05/22/2017 06/14/2018 acetaminophen (TYLENOL) 325 mg Tablet Take 2 tablets by mouth every 4 hours as needed for Pain. 30 tablet 1 03/13/2017 05/10/2022 ibuprofen (ADVIL;MOTRIN) 600 mg Tablet Take 600 mg by mouth 2 times daily. 05/10/2022 documented as of this encounter H&P Notes * Ed Shah MD - 03/05/2018 9:31 AM EDT Gastroenterology and Hepatology Pre-Procedure History and Physical Exam Procedure: Colonoscopy: Indication: screen Patient Active Problem List Diagnosis Code ??? Atypical moles D22.9 ??? Rosacea L71.9 ??? History of atypical nevus Z87.898 ??? Acne rosacea L71.9 ??? Neck mass R22.1 ??? Seborrheic dermatitis L21.9 ??? History of melanoma in situ Z86.008 ??? Psoriasis L40.9 EXAM: HEENT: Airway examined, oropharynx clear Mallampati Score: II (soft palate, uvula, fauces visible) LUNGS: Clear to auscultation HEART: Regular rate and rhythm, normal S1, S2 ABDOMEN: Normal bowel sounds, soft, non tender, non distended, A/P Proceed with the planned endoscopic procedure. ASA 2 - Patient with mild systemic disease with no functional limitations Sedation Plan: moderate (conscious sedation) Risks and benefits of the procedure explained to the patient. Consent signed. documented in this encounter Plan of Treatment Upcoming Encounters Date Type Department Care Team (Late st Contact Info) Description 10/18/2024 4:30 PM EDT Office Visit Dermatology at [facility] [address] [place] [address] Gary Kasper MD [address] [facility] [place] [address] documented as of this encounter Procedures Procedure Name Priority Date/Time Associated Diagnosis Comments SPECIMEN TO PATHOLOGY Routine 03/05/2018 10:36 AM EDT SURGICAL PATHOLOGY REPORT Routine 03/05/2018 10:34 AM EDT COLONOSCOPY, POLYPECTOMY, REMOVAL LESION BY SNARE (WRVU 4.57) 03/05/2018 9:56 AM EDT screening COLONOSCOPY Routine 03/05/2018 9:43 AM EDT documented in this encounter Results * Specimen to Pathology (03/05/2018 10:36 AM EDT) AP Specimen 03/05/2018 10:3 6 AM EDT 03/05/2018 3:25 PM EDT Narrative [facility] - 03/05/2018 3:25 PM EDT Specimen requisition ordered. ??Separate Pathology report to follow Resulting Agency Comment Spec In Lab Ed Shah MD PATHOLOGY/CYTOLOGY O AAKASH Performing Organization Address [facility]/ZIP Co de Phone Number [facility] [place] [address] * Surgical Pathology Report (03/05/2018 10:34 AM EDT) Final Diagnosis [id number] ? Location: 4T; EA08; A The signing pathologist has (i) examined the relevant preparation(s) for the specimen(s) and (ii) rendered or confirmed the diagnosis(es). . ?Surgical Pathology DIAGNOSIS Rectum, ??polypectomy: Hyperplastic polyp. CR-PX Electronically signed by: ??Janina Le MD Verified: ??03/08/2018 ?Pathologist Performed at: ??-[facility] [place], [place], [place] CLINICAL INFORMATION Specimen Submitted: A - Rectal polyp Clinical History and Diagnosis: History of polyps SPECIMEN PROCESSING A - Labeled/Fixativ e: Rectal polyp, formalin. Quantity/Size: Single, 0.6 cm. Tissue Description: Flat, johnson mucosal polyp. Sections/Proces sing: Inked and bisected. (T1) ??shb 03/08/2018 9:12 AM EDT [facility] GI Biopsy 03/05/2018 10:3 4 AM EDT 03/05/2018 10:34 AM EDT Ed Shah MD PATHOLOGY/CYTOLOGY O AAKASH Performing Organization Address [facility]/ZIP Co de Phone Number [facility] [place] [address] * COLONOSCOPY (03/05/2018 9:43 AM EDT) Pathologist [facility] COLONOSCOPY [facility] Endoscopy Procedure Date: 03/05/2018 9:43 AM ? Patient Name: Ed Carrasco ? Date of : 1955 ? Age: 62 ? Order #: [id number] ? Instrument Name: [id number] ? Procedure: ? Colonoscopy Indications: ? Follow-up [...] preparation was evaluated using ? the BBPS ([place] Bowel Preparation ? Scale) with scores of: [...] EDT Unknown GENERAL SURGICAL ORD ERABLES PROVATION documented in this encounter Visit Diagnoses Not on filedocumented in this encounter Administered Medications Inactive Administered Medications - up to 3 most recent administrations Medication Order MAR Action Action Date Dose Rate Site fentaNYL 50 mcg/mL multi-dose injection ONCE PRN, Starting on Mon03/05/18 at 1003, Until Mon03/05/18 at 1316, Intra-Operative (Intra-Procedure), Routine Given 03/05/2018 10:19 AM EDT 50 mcg Given 03/05/2018 10:16 AM EDT 50 mcg Given 03/05/2018 10:06 AM EDT 50 mcg lactated Ringers infusion 100 mL/hr, Intravenous, CONTINUOUS, Starting on Mon03/05/18 at 0930, Until Mon03/05/18 at 1108, Endoscopy (Day of Procedure) New Bag 03/05/2018 9:30 AM EDT 100 mL/hr 100 mL/hr midazolam (PF) (VERSED) 1 mg/mL multi-dose injection ONCE PRN, Starting on 03/05/18 at 1003, Until Mon03/05/18 at 1316, Intra-Operative (Intra-Procedure), Routine Given 03/05/2018 10:19 AM EDT 1 mg Given 03/05/2018 10:16 AM EDT 1 mg Given 03/05/2018 10:06 AM EDT 1 mg documented in this encounter Active and Recently Administered Medications Times are shown in EDT. Continuous Medication Order 03/03/2018 03/04/2018 03/05/2018 lactated Ringers infusion (CANCELED) 100 mL/hr, Intravenous, CONTINUOUS, Starting on Mon03/05/18 at 0930, Until Mon03/05/18 at 1108, Endoscopy (Day of Procedure) 0930 (New Bag - Prov ider: Pepper Rios RN) PRN Medication Order 03/03/2018 03/04/2018 03/05/2018 fentaNYL 50 mcg/mL multi-dose injection (CANCELED) ONCE PRN, Starting on Mon03/05/18 at 1003, Until Mon03/05/18 at 1316, Intra-Operative (Intra-Procedure), Routine 1003 (Given - Provid er: Sherri Marte RN)1006 (Given - Provider: Sherri Marte RN)1016 (Given - Provider: Sherri Marte RN)1019 (Given - Provider: Sherri Marte RN) midazolam (PF) (VERSED) 1 mg/mL multi-dose injection (CANCELED) ONCE PRN, Starting on Mon03/05/18 at 1003, Until Mon03/05/18 at 1316, Intra-Operative (Intra-Procedure), Routine 1003 (Given - Provid er: Sherri Marte RN)1006 (Given - Provider: Sherri Marte RN)1016 (Given - Provider: Sherri Marte RN)1019 (Given - Provider: Sherri Marte RN) documented in this encounter Care Teams Construction Driver Relationship Specialty Start Date End Date Pattie Acosta PA [address] [place] [address] PCP - General Family Medicine 06/04/15 02/04/20 documented as of this encounter
--- OUTSIDE RECORDS SUMMARY | 2024-04-29 13:13 | XMS_ITS | Encounter Summary ---
Author Organization [facility] [place] [address] Care Team Providers Care High Frequency Mill Operator Name Role Phone Pattie Acosta Primary Care Provider +1- [phone] Encounter Details Date Type Department Care Team (Latest Contact Info) Description 03/05/2018 8:28 AM EDT - 03/05/2018 11:16 AM EDT Hospital Encounter [place] [address] Ed Shah MD [facility] [place] [address] Discharge Disposition: Home Social History Tobacco Use [...] to be checked. Monday-Monday Same Day Endo [phone] 7a-8p Otherwise contact [phone] and ask to speak to the pull over nutritional health coach Follow up care is a underwood part [...] 4:30 PM EDT Office Visit Dermatology at [facility] [address] [place] [address] Gary Kasper MD [address] [facility] [place] [address] documented as of this encounter Procedures Procedure [...] 6 AM EDT 03/05/2018 3:25 PM EDT [facility] - 03/05/2018 3:25 PM EDT Specimen requisition ordered. ??Separate Pathology report to follow Resulting Agency Comment Spec In Lab Ed Shah MD PATHOLOGY/CYTOLOGY O AAKASH Performing Organization Address [facility] Co de Phone Number [facility] [place] [address] * Surgical Pathology Report (03/05/2018 10:34 AM EDT) Final Diagnosis [id number] ? Location: 4T; EA08; A The signing pathologist has (i) examined the relevant preparation(s) for the specimen(s) and (ii) rendered or confirmed the diagnosis(es). . ?Surgical Pathology DIAGNOSIS Rectum, ??polypectomy: Hyperplastic polyp. CR-PX Electronically signed by: ??Janina Le MD Verified: ??03/08/2018 ?Pathologist Performed at: ??-[facility] Dept. of Pathology, [place], [place] CLINICAL INFORMATION Specimen Submitted: A - Rectal polyp Clinical History and Diagnosis: History of polyps SPECIMEN PROCESSING A - Labeled/Fixativ e: Rectal polyp, formalin. Quantity/Size: Single, 0.6 cm. Tissue Description: Flat, johnson mucosal polyp. Sections/Proces sing: Inked and bisected. (T1) ??shb 03/08/2018 9:12 AM EDT [facility] GI Biopsy 03/05/2018 10:3 4 AM EDT 03/05/2018 10:34 AM EDT Ed Shah MD PATHOLOGY/CYTOLOGY O AAKASH Performing Organization Address [facility] Co de Phone Number [facility] [place] [address] * COLONOSCOPY (03/05/2018 9:43 AM EDT) COLONOSCOPY [facility] Endoscopy Procedure Date: 03/05/2018 9:43 AM ? Patient Name: Ed Carrasco ? Date of : 1955 ? Age: 62 ? Order #: [id number] ? Instrument Name: [id number] ? Procedure: ? Colonoscopy Indications: ? Follow-up [...] preparation was evaluated using ? the BBPS ([place] Bowel Preparation ? Scale) with scores of: [...] MAR Action Action Date Dose Rate Site lactated Ringers infusion 100 mL/hr, Intravenous, CONTINUOUS, Starting on Mon03/05/18 at 0930, Until Mon03/05/18 at 1108, Endoscopy (Day of Procedure) New Bag 03/05/2018 9:30 AM EDT 100 mL/hr 100 mL/hr documented in this encounter Active and Recently [...] RN) documented in this encounter Care Teams High Frequency Mill Operator Relationship Specialty Start Date End Date Pattie Acosta PA [address] [place] [address] PCP - General Family Medicine 06/04/15 02/04/20 documented as of this encounter
--- OUTSIDE RECORDS SUMMARY | 2024-04-29 13:13 | XMS_ITS | Encounter Summary ---
Author Organization [facility] [place] [address] Care Team Providers Care Waterproof Material Folder Name Role Phone Pattie Acosta Primary Care Provider +1- [phone] Reason for Visit * Reason Onset Date Comments Medication Refill 04/12/2021 Encounter Details Date Type Department Care Team (Late st Contact Info) Description 04/12/2021 Refill Dermatology at [facility] [address] [place] [address] Meli Delgadillo MD [facility] [place] [address] [place] [address] Rosacea Social History Tobacco Use Types Packs/Day [...] 4:30 PM EDT Office Visit Dermatology at [facility] [address] [place] [address] Gary Kasper MD [address] [facility] [place] [address] documented as of this encounter Visit Diagnoses Diagnosis Rosacea documented in this encounter Care Teams Waterproof Material Folder Relationship Specialty Start Date End Date Pattie Acosta PA [address] [place] [address] PCP - General Family Medicine 01/25/21 documented as of this encounter
--- OUTSIDE RECORDS SUMMARY | 2024-04-29 13:13 | XMS_ITS | Encounter Summary ---
Author Organization [facility] [place] [address] Care Team Providers Care Railroad Maintenance Clerk Name Role Phone Pattie Acosta Primary Care Provider +1- [phone] Reason for Visit * Reason Comments Establish Care * Consultation (Routine) - Closed Specialty Diagnoses / Procedures Referred By Linda hwang Referred To Contact General Surgery Diagnoses Anal intraepithelial neoplasia. Pattie Acosta PA [address] [place] [address] [facility] Gen Surgery [address] [place] [address] Referral ID Status Reason Start Date Expiration Date V isits Requested Visits Authorized [id number] Closed Consult, Test & Treat Connection Center 09/23/2016 09/23/2017 1 1 Encounter Details Date Type Department Care Team (Late st Contact Info) Description 11/07/2016 1:00 PM EDT Office [place] [address] Hany Chase MD [facility] [place] [address] CA in situ anal canal Social History Tobacco Use Types Packs/Day Years [...] Sign Reading Time Taken Comments Blood Pressure 136/74 11/07/2016 12:59 PM EDT Pulse 61 11/07/2016 12:59 PM EDT Temperature 36.9 ??C (98.4 ??F) 11/07/2016 12:59 PM E DT Respiratory Rate 18 11/07/2016 12:59 PM EDT Oxygen Saturation 100% 11/07/2016 12:59 PM EDT Inhaled Oxygen Concentration - - Weight 81.6 kg (180 lb) 11/07/2016 12:59 PM EDT Height - - Body Mass Index 26.58 01/26/2016 4:45 PM EDT documented in this encounter Progress Notes * Hany Chase MD - 11/07/2016 1:00 PM EDT Colorectal Surgery Outpatient Consultation [place] [address] FAX: PCP: Pattie Acosta, NELSON@ [phone] Referring Provider: Pattie Acosta HPI: Ed Carrasco is a pleasant 61 y.o. 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 Acosta regarding AIN III. This patient has been diagnosed with AIN a few years ago. Over ten years ago he had some sortof endoscopic excision and was told by the more recent surgeon he should have had chemoradiation. 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 He had a recent anoscopy and anal Pap smear reportedly showing AIN III, although that report is not in eDH. He denies any change in bowel habits, bleeding or other symptoms and has been screened for colorectal cancer including a flex year. Past medical history: Patient Active Problem List Diagnosis Code ??? Atypical moles D22.9 ??? Rosacea L71.9 ??? History of atypical nevus Z87.2 ??? Acne rosacea L71.9 ??? Neck mass R22.1 ??? Seborrheic dermatitis L21.9 ??? History of melanoma in situ Z87.898 ??? Psoriasis L40.9 Past surgical history: Past Surgical History: Procedure Laterality Date ??? COLON SURGERY ??? HERNIA REPAIR ??? PRO EXCISION BRANC CLFT CYST, DEEP Left 08/31/2015 EXCISION BRANCHIAL CLEFT CYST, VESTIGE OR FISTULA, DEEP [facility] ??? PRO LARYNGOSCOPY, DIRECT, DX, OP MICROSCOP N/A 08/31/2015 LARYNGOSCOPY, WITH MICROSCOPE performed by [facility]ade[facility] MD at [facility] Allergies: Vicodin [hydrocodone-acetaminophen]; Percocet [oxycodone- acetaminophen]; and Sulfa (sulfonamide antibiotics) Medications: reviewed in the electronic medical record. Current Outpatient Prescriptions on File Prior to Visit Medication Sig Dispense Refill ??? tacrolimus (PROTOPIC) 0.1 % Ointment Apply to affected areas on face 1-2 times daily as needed for maintenance. 30 g 1 ??? doxycycline (VIBRAMYCIN) 50 mg Capsule Take 1 capsule daily. 60 capsule 2 ??? ibuprofen (ADVIL;MOTRIN) 600 mg Tablet Take 600 mg by mouth 2 times daily. ??? multivitamin (THERAGRAN) tablet Take 1 tablet by mouth daily. No current facility-administered medications on file prior to visit. Social history: reports that he quit smoking about 14 years ago. He does not have any smokeless tobacco history on file. He reports that he does not drink alcohol or use illicit drugs. Family medical history: Family medical history: Family History Problem Relation Age of Onset ??? Heart Disease Mother ??? Diabetes Other Patient reported measures: Pain: Physical Health: Fall: No flowsheet data found. COREFO Responses 11/07/2016 Incontinence Scale 11.11 Social Impact Scale 8.33 Frequency Scale 12.5 Stool Releated Aspects 0 Medication Scale 0 Total COREFO Score 7.69 Vitals: There were no vitals taken for this visit. There is no height or weight on file to calculate BMI. RECTAL: Area of excoriation in the posterior midline of th anal verge. Anal canal has a small thrombosed external hemorrhoid. No masses, normal sphincter tone. Anoscopy appeared normal. Endoscopy: reviewed. Path: reviewed. Imaging: reviewed. I discussed with the patient in detail the diagnosis of AIN and the considerable controversy aroundthe management of this condition. My usual preference when possible is to eradicate or downstage through the use of Aldara. He has not had a formal mapping of the anal canal to determine the extent of the disease or the potential for resection. I am going to treat this patient with Aldara for 12 wee ks and then bring him to the OR for a formal set of biopsies. I discussed with him the risks and benefits and we're going to do this in February. Thank you for this interesting consultation, I do appreciate the opportunity to participate in thispatients' care. I personally spent a total of 60 minutes in [id number] consultation with the patient, of which 40were in patient education and counseling. Hany Chase MD, FACS, FASCRS Clinical welfare director Division of Colon and Rectal Surgery [facility] documented in this encounter Plan of Treatment Upcoming Encounters Date Type Department Care Team (Late st Contact Info) Description 10/18/2024 4:30 PM EDT Office Visit Dermatology at [facility] [address] [place] [address] Gary Kasper MD [address] 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
--- OUTSIDE RECORDS SUMMARY | 2024-04-29 13:13 | XMS_ITS | Encounter Summary ---
[facility] Organization [facility] [place] [address] Care Team Providers Care Leaf Sorter Name Role Phone Pattie Acosta Primary Care Provider [phone]- [phone] Encounter Details Date Type Department Care Team (Late st Contact Info) Description 05/10/2022 9:00 AM EST TH Visit (TeleHealth) Dermatology at [facility] [address] [place] [address] Gary Kasper MD [address] [facility] [place] [address] Rosacea Social History Tobacco Use Types Packs/Day [...] Progress Notes * Gary Kasper MD - 05/10/2022 9:00 AM EST Images from the original note were not included. DEPARTMENT OF DERMATOLOGY Medical Dermatology Clinic Telehealth Provider: Gary Kasper MD FAAD at Dermatology at [facility] Patient's preferred name Ed Preferred contact method for results [x] with detailed results? 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 BCC -- [place] [] cryotherapy [] efudex [] PDT [] Other Relevant Medications [] Immunosuppression [] Transplant [] Oncogenic medication [] Nicotinamide 500mg po bid Rosacea Curr: doxycycline 50mg daily Prev: Sulfacet (blistered his forehead), Metrogel, Hydrocortisone 1%, Clindamycin, Metronidazole 500mg BID x 10 days, Ketoconazole 2% cream). ?? 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 History of Present Illness: Ed Carrasco is 66 y.o. and here for the following: ??? History of rosacea for many years who was taking doxycycline 50mg daily for many years with excellent control until Mar 2022 when he ran out and is now starting to flare on the face. Previously failed topical and oral metronidazole, clindamycin topical, sulfacetamide topical and ketoconazole cream with poor control. Medications: Reviewed in eD-H Allergies: Reviewed in eD-H Skin Examination Well developed, well-nourished in no apparent distress, alert and oriented to time, person, place and situation. Focused examination of the skin of the face significant for the following: Exam Findings/Assessment/Plan Rosacea [place] to red lesions on the cheeks and nose. Slight flare since running out of doxycycline in March 2022. Recommend restarting doxycycline 50 mg daily which she has tolerated for many years. Previously failed multiple topical and oral regimens. Discussed clinical recommendation as above.. Discussed major risks of doxycycline including sun sensitivity and GI upset. Answered all questions. Joint decision to continue doxycycline. ??? Continue doxycycline 50 mg p.o. daily. Take on a full stomach and with a glass of water and do not lie down for 30 minutes if he starts to develop GI symptoms with use. Reviewed major risks of doxycycline including GI upset and sensitivity to sun. Follow-up: January 2023 for skin cancer screening and medication refills. Return sooner as needed for suspicious lesion, new or worsening dermatitis. [] Recall placed [] Forwarded to dental scheduler [] Patient scheduled before exiting Reviewed and signed by: Gary Kasper MD FAAD Dermatology [facility] documented in this encounter Plan of Treatment Upcoming Encounters Date Type Department Care Team (Late st Contact Info) Description 10/18/2024 4:30 PM EDT Office Visit Dermatology at [facility] [address] [place] [address] Gary Kasper MD [address] [facility] [place] [address] documented as of this encounter Visit Diagnoses Diagnosis Rosacea documented in this encounter Care Teams Leaf Sorter Relationship Specialty Start Date End Date Pattie Acosta PA [address] [place] [address] PCP - General Family Medicine 01/25/21 documented as of this encounter
--- OUTSIDE RECORDS SUMMARY | 2024-04-29 13:13 | XMS_ITS | Encounter Summary ---
Author Organization [facility] [place] [address] Care Team Providers Care Drafter Civil (Cad) Name Role Phone Pattie Acosta Primary Care Provider [phone]- [phone] Reason for Visit * Reason Comments Skin Check Encounter Details Date Type Department Care Team (Late st Contact Info) Description 01/20/2020 10:00 AM EDT Office Visit Dermatology at [facility] [address] [place] [address] Meli Delgadillo MD [facility] [address] [place] [address] History of melanoma in situ; Rosacea; Psoriasis; Seborrheic dermatitis; Dysplastic nevus of trunk; Multiple benign nevi; Sebaceous hyperplasia; Skin cancer screening Social History Tobacco Use Types Packs/Day Years [...] as of this encounter Progress Notes * Meli Delgadillo T - 01/20/2020 10:00 AM EDT Images from the original note were not included. DERMATOLOGY - ESTABLISHED PATIENT FOLLOW-UP Date of service: 01/20/2020 Ed Carrasco : 1955, 64 y.o. Chief Complaint: Chief Complaint Patient presents with ??? Skin Check HPI: Ed Carrasco is a 64 y.o. male last seen by Vickie Gomez PA-C (Bri) on 11/05/2018. Mr. Carrasco returns today for a full skin exam. He notes chronic flaking on his scalp and currently uses OTC dandruff shampoo with improvement. He also reports psoriasis plaques on his elbows that he treats with OTC MG217 coal tar cream with improvement. Not currently using other topicals and happy with this treatment. He has not noted any new, growing, changing, bleeding, painful or otherwise symptomatic moles or other lesions. He has not noted any changes in any preexisting lesions. 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 (Excised 10/15/09) ? Rosacea (Sulfacet (blistered his forehead), Metrogel, Hydrocortisone 1%, Clindamycin, Metronidazole 500mg BID x 10 days, Ketoconazole 2% cream) Seborrheic dermatitis ? 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 ?? No??Defibrillator/pacemaker No??Anti-coagulants Medications: Current Outpatient Medications Medication Sig Dispense Refill ??? buPROPion SR (Wellbutrin SR) 200 mg tablet sustained-release 12 hr Take 200 mg by mouth 2 timesdaily. ??? doxycycline (VIBRAMYCIN) 50 mg Capsule Take 1 capsule daily. 60 capsule 5 ??? aspirin 81 mg Tablet, Delayed Release (E.C.) Take 81 mg by mouth daily. ??? multivitamin (THERAGRAN) tablet Take 1 tablet by mouth daily. ??? tamsulosin (Flomax) 0.4 mg Capsule Take 1 capsule by mouth daily. (Patient not taking: Reportedon 01/20/2020) 90 tablet 3 ??? ketoconazole (NIZORAL) 2 % Shampoo Apply to affected areas on torso daily until clear and then 1-2 times weekly. Lather, leave for 5-10 min, then rinse. (Patient not taking: Reported on 01/20/2020)120 mL 1 ??? fluocinonide (LIDEX) 0.05 % Solution Apply twice daily to itchy areas on the scalp as needed . (Patient not taking: Reported on 01/20/2020) 20 mL 2 ??? acetaminophen (TYLENOL) 325 mg Tablet Take 2 tablets by mouth every 4 hours as needed for Pain.(Patient not taking: Reported on 01/20/2020) 30 tablet 1 ??? ibuprofen (ADVIL;MOTRIN) 600 mg Tablet Take 600 mg by mouth 2 times daily. No current facility-administered medications for this visit. Allergies: Allergies Allergen Reactions ??? Vicodin [Hydrocodone-Acetaminophen] Nausea And Vomiting ??? Percocet [Oxycodone-Acetaminophen] ??? Sulfa (Sulfonamide Antibiotics) Review of Systems: - General: Feels well - Skin: No other skin concerns. Examination: - Constitutional: Patient was alert, well-appearing and in no noticeable distress. - Lymph nodes: no occipital, pre- or post auricular, cervical, submandibular, submental, supraclavicular, and axillary LAD - Skin Exam: Full skin examination of the scalp, face, ears, neck, back, chest, axillae, abdomen, right and left upper extremities, right and left lower extremities, hands, feet, and buttocks was normal with the exception of the findings listed below. Genitalia not examined. - Chyna Esposito was present and on standby during my examination. Diagnosis/Skin findings/Assessment/Plan: #. History of MIS EXAM: central upper back: well healed scar s/p excision. - No cervical, supraclavicular, inguinal or axillary lymphadenopathy noted. - No evidence of recurrence. - Continue to monitor. #. Rosacea EXAM: No active papules today. - OK to continue Rx Doxycycline 50mg, take 1 capsule daily - Advised patient it is okay to increase doxycyline dose if he should flare. - Advised on sun protection. #. Psoriasis EXAM: pink well-demarcated scaly plaques on the bilateral elbows - Discussed treatment options: topical steroids, topical calcipotriene - Will continue use of MG217 coal tar cream and call if stronger treatment is needed #. Mild seborrheic dermatitis EXAM: loose greasy scale on the scalp - Advised to rotate anti-dandruff shampoos; leave on for 5 minutes in the shower #. Benign appearing nevus superior to but not involving the melanoma in situ scar EXAM: left upper back superior to excision scar: 3mm medium brown macule. - Will continue to monitor. - Observe skin for change in color, size or character. Call if such occur. #. Benign appearing nevi EXAM: trunk and extremities: Multiple, 0.3-0.5cm, medium-brown, evenly-pigmented macules and papules. All [...] size or character. Call if such occur. #. Sebaceous hyperplasia EXAM: scattered 0.2-0.3cm yellowish papules with central umbilication on the forehead and left upper arm. - Patient reassured of benign nature. - No treatment necessary. RTC: 1 year for FSE Note initiated by ZENON De Paz. We, Chyna Esposito and Yelitza Steen [facility], have performed the documentation for this encounter in the presence of and acting as a scribe for Meli Delgadillo MD. I performed the services which were documented by the scribe, and I agree with the accuracy of the documentation in this encounter. Meli Delgadillo MD Reviewed and signed by: Meli Delgadillo MD Resident in Dermatology [facility] Staff diamond driller helper: Demi Rios MD Department of Dermatology [facility] documented in this encounter Plan of Treatment Upcoming Encounters Date Type Department Care Team (Late st Contact Info) Description 10/18/2024 4:30 PM EDT Office Visit Dermatology at [facility] [address] [place] [address] Gary Kasper MD [address] [facility] [place] [address] documented as of this encounter Visit Diagnoses Diagnosis History of melanoma in situ Personal history of malignant melanoma of skin Rosacea Psoriasis Other psoriasis Seborrheic dermatitis Seborrheic dermatitis, unspecified Dysplastic nevus of trunk Benign neoplasm of skin of trunk, except scrotum Multiple benign nevi Benign neoplasm of skin, site unspecified Sebaceous hyperplasia Other specified disease of sebaceous glands Skin cancer screening Screening for malignant neoplasm of the skin documented in this encounter Care Teams Drafter Civil (Cad) Relationship Specialty Start Date End Date Pattie Acosta PA [address] [place] [address] PCP - General Family Medicine 06/04/15 02/04/20 documented as of this encounter
--- OUTSIDE RECORDS SUMMARY | 2024-04-29 13:13 | XMS_ITS | Encounter Summary ---
Author Organization [facility] [place] [address] Care Team Providers Care Architectural Job Captain Name Role Phone Pattie Acosta Primary Care Provider +1- [phone] Reason for Visit * Reason Comments Follow-up rosacea and alda derm Encounter Details Date Type Department Care Team (Late st Contact Info) Description 12/28/2015 11:00 AM EDT Office Visit Dermatology at [facility] [address] [place] [address] Cj Hooker MD [facility] [address] [place] [address] Vickie Gomez PA [facility] [address] [place] [address] Seborrheic dermatitis; Rosacea Social History Tobacco Use Types Packs/Day [...] Progress Notes * Cj Hooker MD - 12/28/2015 11:00 AM EDT Patient with facial rosacea and seborrheic dermatitis overlap. Topicals are not helping. Has some pustules, so deep inflammation. Switching or adding Doxycycline for the rosacea, and Protopic non-steroid for the alda derm. Warned about cost. Patient seen in conjunction with Vickie Gomez PA-C (Bri) Signed by: CJ HOOKER MD Section of Dermatology [facility] * Staci Barker LPN - 12/28/2015 10:44 AM EDT * Vickie Gomez PA - 12/28/2015 10:38 AM EDT DERMATOLOGY - ESTABLISHED PATIENT CLINIC NOTE Date of service: 12/28/2015 Ed Carrasco : 1955 Dermatology Physician Admissions Officer Note: Vcikie Gomez PA-C (Bri) Chief Complaint Patient presents with ??? Follow-up rosacea and alda derm This is an established patient, last seen by myself on 11/23/2015 for a full skin exam. HPI: Ed Carrasco presents for follow up seborrheic dermatitis and rosacea. Patient states that he feels as though there has been a huge improvement since his previous visit. He has been taking the Doxycycline 100mg BID (last pill was this morning, as the pharmacy only dispensed #56 instead of the full 60). Mr. Carrasco states that he used the ketoconazole 2% cream as directed, but discontinued it on 12/13 as it was making his symptoms much worse. He is otherwise doing well and has no other skin concerns today. Patient states that he gets some scaling around his nose, in his eyebrows, and in his arora. 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 (Excised 10/15/09) ?? Rosacea (Sulfacet (blistered his forehead), Metrogel, Hydrocortisone 1%, Clindamycin, Metronidazole 500mg BID x 10 days, Ketoconazole 2% cream) Seborrheic dermatitis ?? Psoriasis ?? Medical History: No past medical history on file. No Defibrillator/pacemaker No Anti-coagulants Medications: Current Outpatient Prescriptions Medication Sig Dispense Refill ??? tacrolimus (PROTOPIC) 0.1 % Ointment Apply to affected areas on face 1-2 times daily as needed for maintenance following one month of ketoconazole. (Patient not taking: Reported on 12/28/2015) 30 g 1 ??? doxycycline monohydrate (MONODOX) 100 mg Capsule Take 1 cap twice daily for 1 month 60 capsule 0 ??? ibuprofen (ADVIL;MOTRIN) 600 mg Tablet Take 600 mg by mouth 2 times daily. ??? multivitamin (THERAGRAN) tablet Take 1 tablet by mouth daily. No current facility-administered medications for this visit. Allergies: Allergies Allergen Reactions ??? Vicodin [Hydrocodone-Acetaminophen] Nausea And Vomiting ??? Percocet [Oxycodone-Acetaminophen] ??? 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 - Skin: As per HPI; no other skin concerns. Examination: - Constitutional: Patient was alert, well-appearing and in no noticeable distress. - Skin: An exam of the skin from the neck-up was performed. This includes examination of the skin of the face, ears, scalp, and neck. Baer Skin Type: 2 Specific skin findings: 1. Sulphur papules on the left paranasal with background of erythema and telangiectasia on the centralface Diagnosis/Assessment/Treatment Plan: 1. Rosacea - Briefly discussed treating cosmetically with V-Beam. - Patient is aware that this is considered a cosmetic procedure and not covered by insurance. Patient is aware that this may take more than one treatment (2-3). Patient will call should they wish to proceed. - Combined decision to decrease dosage of doxycycline to 50mg daily. - Rx: Doxycycline 50mg - Take 1 capsule daily (#-60, 2 refills) (Patient was informed that should he find that he is stillexperiencing flares he may take an additional 50mg daily.) - Rx: Protopic 0.1% ointment - Apply to affected areas on face 1-2 times daily as needed for maintenance (30g, 1 refill) Warned of possible burning and stinging with initial application - The nature of sun-induced photo-aging and skin cancers is discussed. Sun avoidance, protective clothing, and the use of 30-SPF broad spectrum sunscreens is advised. Observe closely for skin damage/changes, and call if such occurs. LOS: [id number] RTC in 1 year for full skin exam, or sooner if needed. A reminder letter will be sent to schedule. Patient instructed to call with questions or concerns. Patient verbally expressed understanding. I specifically asked the patient at the end of the visit if there were any further concerns or questions and the patient verbally stated there were no other concerns or questions. All questions were answered and all concerns were addressed. I have granted patient's request that this note be sent to PCP. Note initiated by CALLIE Mishra, Clinical Scribe: I am documenting this encounter acting as the scribe for and in the presence of Vickie Gomez PA-C (Bri) I performed the above scribed service and agree with the accuracy of the documentation in this encounter. Reviewed and signed by Vickie Gomez PA-C (Bri) Dermatology [facility] Patient seen in conjunction with staff physician: Cheyanne Hooker MD Section of Dermatology [facility] documented in this encounter Plan of Treatment Upcoming Encounters Date Type Department Care Team (Late st Contact Info) Description 10/18/2024 4:30 PM EDT Office Visit Dermatology at [address] [place] [address] Gary Kasper MD [address] [facility] [place] [address] documented as of this encounter Visit Diagnoses Diagnosis Seborrheic dermatitis Seborrheic dermatitis, unspecified Rosacea documented in this encounter Care Teams Architectural Job Captain Relationship Specialty Start Date End Date Pattie Acosta PA [address] [place] [address] PCP - General Family Medicine 06/04/15 02/04/20 documented as of this encounter
--- OUTSIDE RECORDS SUMMARY | 2024-04-29 13:13 | XMS_ITS | Encounter Summary ---
Author Organization [facility] [place] [address] Care Team Providers Care Post Manager Name Role Phone Pattie Acosta Primary Care Provider +1- [phone] Reason for Visit * Reason Comments Skin Cancer Examination Encounter Details Date Type Department Care Team (Late st Contact Info) Description 01/25/2021 10:40 AM EDT Office Visit Dermatology at [facility] [address] [place] [address] Martha Nieto MD [facility] [address] ERIN [place] [address] History of melanoma in situ; Seborrheic keratoses; Sebaceous hyperplasia; Dermatofibroma; Psoriasis; Rosacea Social History Tobacco Use Types Packs/Day [...] as of this encounter Progress Notes * Martha Nieto MD - 01/25/2021 10:40 AM EDT Images from the original note were not included. DEPARTMENT OF DERMATOLOGY Medical Dermatology Clinic Provider: Martha Nieto MD PAST MEDICAL HISTORY If no, type N. If yes, type date, location, treatment Melanoma 09/23/2009: Central upper back, shave biopsy: Severely atypical junctional melanocytic proliferation/ borderline melanoma in situ, in association with a lentiginous dysplastic compound nevus. (Excised 10/15/09) Dysplastic nevi N SCC N BCC N AKs N Other relevant past medical history (i.e. 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 Rosacea (Sulfacet (blistered his forehead)- previously tried Metrogel, Hydrocortisone 1%, Clindamycin, Metronidazole 500mg BID x 10 days, Ketoconazole 2% cream). Now on doxycycline 50 mg daily. Seborrheic dermatitis ?? 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 PRE-PROCEDURE SCREENING If no, type N. If yes, include details below Allergy to lidocaine, epinephrine, Dermabond, chlorhexidine, or adhesives: Bleeding disorder or blood thinners: Implanted devices (Pacemaker, defibrillator, deep brain stimulator, cochlear implant): History of Present Illness: Ed Carrasco is a 65 y.o. year old. Patient returns to clinic today for a full skin exam with the following concerns: - Lesion on the right cheek and left eyebrow that he noticed 1 month ago. He also had a lesion on the left cheek, but he believes that the lesion fell off this morning when shaving. - Scaling on the scalp; denies any pruritus associated. He is currently using an OTC medicated shampoo (Tgel) which has had some improvement. He has attempted to use t-gel, but this was malodorous. Last visit at [facility] Derm: 01/20/2020 Last visit with this provider: Visit date not found Medications: Reviewed in eD-H Allergies: Reviewed in eD-H Skin Examination: Full skin examination: Patient asked to undress to their comfort level. Verbalized that the provider???s preference is that the patient remove all clothing and that the provider will not examine areas patient elects to keep covered. Patient elects to keep underwear on and have the following examined: scalp, hair, head, face, ears, neck, chest, axillae, abdomen, back, buttocks, and upper and lowerextremities. Genitalia were not examined. Assessment/Plan #. History of MIS EXAM: On the central upper back there is a well healed scar s/p excision. No nodularity or repigmentation. -??No evidence??of recurrence.?? -??Continue to monitor.?? - Regular photoprotection with minimum SPF 30 reapplied every 2 hours. #. Sebaceous hyperplasia EXAM: on the face, there are a few, yellowish papules with a central dell. - Benign nature discussed. No further intervention indicated at this time. #. Seborrheic keratoses EXAM: scattered on the trunk and extremities, there are multiple, well- circumscribed, stuck-on, waxy papules and plaques with a cerebriform surface and milia-like cysts apparent on dermatoscopic examination, including the lesion on the left eyebrow and right cheek that patient was concerned about - Benign nature discussed. No further intervention indicated. #. Dermatofibroma EXAM: on the right thigh and left arm, there are light brownish-pink, firm, round papules which display central umbilication with central pressure. On dermoscopy, central stellate hypopigmentation appreciated. - Benign nature discussed. No further intervention indicated at this time. #. Psoriasis EXAM: Few pink scaly papules on the scalp. Thin pink papules on the bilateral elbows with scale - Continue use of MG217 coal tar cream - Continue and refill Rx: Ketoconazole 2% Shampoo: Lather onto scalp, leave for 5-10 min, then rinse. Perform 1-5 times per week. - Continue OTC medicated shampoo (Tgel) a few times weekly. #. Rosacea EXAM: No active papules today - Patient is currently stable with low-dose doxycyline. No further intervention required. - Continue Rx: doxycycline 50 mg: Take one tablet by mouth daily. Patient will call if he needs refills. Other items to document in the assessment/plan if relevant ??? N/A RTC: 1 year for FSE []Note routed to engineering secretary [x]Recall has been placed in scheduling system []Appointment scheduled at checkout Scribe attestation: Megha Shannon CMA has performed the documentation for this encounter in the presence of and acting as a scribe for Martha Nieto MD I performed the above scribed service and agree with the accuracy of the documentation in this encounter. Reviewed and signed by: Martha Nieto MD Dermatology [facility] Patient seen and evaluated with staff inbound sales consultant: Mel Godfrey MD Dermatology [facility] * Mel Godfrey MD - 01/25/2021 10:40 AM EDT I directly supervised Dr. Nieto during this office visit. Dr. Nieto presented the historyand physical exam to me. I then saw and examined this patient with Dr. Nieto . We reviewed thehistory and pertinent details and I confirmed the physical findings. I agree with the details of the history and physical exam as documented in Dr. Nieto's note. MEL GODFREY MD Staff Physician documented in this encounter Plan of Treatment Upcoming Encounters Date Type Department Care Team (Late st Contact Info) Description 10/18/2024 4:30 PM EDT Office Visit Dermatology at [facility] [address] [place] [address] Gary Kasper MD [address] [facility] [place] [address] documented as of this encounter Visit Diagnoses Diagnosis History of melanoma in situ Personal history of malignant melanoma of skin Seborrheic keratoses Sebaceous hyperplasia Other specified disease of sebaceous glands Dermatofibroma Benign neoplasm of skin, site unspecified Psoriasis Other psoriasis Rosacea documented in this encounter Care Teams Post Manager Relationship Specialty Start Date End Date Pattie Acosta PA [address] [place] [address] PCP - General Family Medicine 01/25/21 documented as of this encounter
--- OUTSIDE RECORDS SUMMARY | 2024-04-29 13:13 | XMS_ITS | Encounter Summary ---
Author Organization [facility] [place] [address] Care Team Providers Care Boiler Repair Supervisor Name Role Phone Pattie Acosta Primary Care Provider +1- [phone] Encounter Details Date Type Department Care Team (Late st Contact Info) Description 10/15/[address] [facility] [address] [place] [address] Vickie Gomez PA [facility] [address] ERIN [place] [address] Rosacea Social History Tobacco Use Types Packs/Day [...] encounter Miscellaneous Notes * Telephone Encounter - Karrie Silva - 10/15/2018 8:30 AM EDT Medication Request Who requested: Patient Medication(s): doxycycline (VIBRAMYCIN) 50 mg Capsule Pharmacy: [facility] [place], [place] Last seen: 11/20/17 Follow up scheduled for: 11/05/18 Comments: Please note change in pharmacy Patient contact: [phone] (work number) documented in this encounter Plan of Treatment Upcoming Encounters Date Type Department Care Team (Late st Contact Info) Description 10/18/2024 4:30 PM EDT Office Visit Dermatology at [facility] [address] [place] [address] Gary Kasper MD [address] [facility] [place] [address] documented as of this encounter Visit Diagnoses Diagnosis Rosacea documented in this encounter Care Teams Boiler Repair Supervisor Relationship Specialty Start Date End Date Pattie Acosta PA [address] [place] [address] PCP - General Family Medicine 06/04/15 02/04/20 documented as of this encounter
--- OUTSIDE RECORDS SUMMARY | 2024-04-29 13:13 | XMS_ITS | Encounter Summary ---
Author Organization [facility] [place] [address] Care Team Providers Care Concrete Pipe Plant Supervisor Name Role Phone Pattie Acosta Primary Care Provider +1- [phone] Encounter Details Date Type Department Care Team (Late st Contact Info) Description 01/25/2022 11:15 AM EDT Office Visit Dermatology at [facility] [address] [place] [address] Deangelo Chase MD [facility] [address] [place] [address] Multiple benign nevi; Lentigines; Sebaceous hyperplasia; Skin tag; History of squamous cell carcinoma of skin; [...] as of this encounter Progress Notes * Simran Gomez, [facility] - 01/25/2022 11:15 AM EDT Images from the original note were not included. DEPARTMENT OF DERMATOLOGY Medical Dermatology Clinic Provider: Deangelo Chase MD PAST MEDICAL HISTORY If no, type N. If yes, type date, location, treatment Melanoma 09/23/2009: Central upper back, shave biopsy: Severely atypical junctional melanocytic proliferation/ borderline melanoma in situ, in association with a lentiginous dysplastic compound nevus. 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 BCC N AKs N Other relevant past medical history (i.e. eczema, psoriasis, birthmarks, immunosuppression) Rosacea(Sulfacet (blistered his forehead)- previously tried Metrogel, Hydrocortisone 1%, Clindamycin, Metronidazole 500mg BID x 10 days, Ketoconazole 2% cream). Now on doxycycline 50 mg daily. Seborrheic dermatitis ?? 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 History of Present Illness: Ed Carrasco is a 66 y.o. Patient returns to clinic today for a full skin exam He has not noted any other new, growing, changing, bleeding, painful or otherwise symptomatic moles or other lesions. He has not noted any other changes in any preexisting lesions. Last visit at Dermatology: 01/25/2021 Last visit with this provider: Visit date not found Medications: Reviewed in eD-H Allergies: Reviewed in eD-H Skin Examination: Full skin examination: Patient asked to undress to their comfort level. Verbalized that the provider's preference is that patient remove all clothing and that the provider will not examine areas patient elects to keep covered. Examination of the scalp, hair, head, face, ears, neck, chest, axillae, abdomen, back, buttocks and upper and lower extremities was normal with the exception of the findings below. Genitalia not examined. Assessment/Plan: #. Sebaceous hyperplasia - yellow papules with crown of vessels and central dell on dermoscopy on the left arm. - Advised patient that these lesions are benign and are due to an increase in the size of oil glands. - If bothersome, can be treated cosmetically. #. Skin Tags - Sessile, flesh-colored papules on the right flank. - Discussed benign nature of lesions and provided reassurance. No treatment necessary at this time. #. Lentigines - Scattered light-brown, evenly pigmented, well-demarcated macules on sun-exposed areas of the trunk and extremities. - No worrisome pigmented lesions. Discussed benign nature of lesions and provided reassurance. Willcontinue to monitor. #. Medium-Density Nevi - Scattered medium brown, evenly pigmented macules and papules on the trunk and extremities with reassuring pigment pattern on dermoscopy. - Discussed benign nature of lesions and provided reassurance. Will continue to monitor. #. History of MIS and SCC - Well-healed scars per skin history. - No evidence of recurrence; will continue to monitor. Other: ??? N/A RTC: 1 year for FSE []Note routed to engineering secretary [x]Recall placed in scheduling system []Appointment scheduled at checkout Scribe attestation: Jaja Mckeon CMA and Valeryi Mendez have performed the documentation for this encounter in the presence of and acting as a scribe for Deangelo Chase MD. I performed the above scribed service and agree with the accuracy of the documentation in this encounter. Reviewed and signed by: Deangelo Chase MD Dermatology [facility] documented in this encounter Plan of Treatment Upcoming Encounters Date Type Department Care Team (Late st Contact Info) Description 10/18/2024 4:30 PM EDT Office Visit Dermatology at [facility] [address] [place] [address] Gary Kasper MD [address] [facility] [place] [address] documented as of this encounter Visit Diagnoses Diagnosis Multiple benign nevi Benign neoplasm of skin, site unspecified Lentigines Other dyschromia Sebaceous hyperplasia Other specified disease of sebaceous glands Skin tag Unspecified hypertrophic and atrophic condition of skin History of squamous cell carcinoma of skin Personal history of other malignant neoplasm of skin History of melanoma in situ Personal history of malignant melanoma of skin documented in this encounter Care Teams Concrete Pipe Plant Supervisor Relationship Specialty Start Date End Date Pattie Acosta PA [address] [place] [address] PCP - General Family Medicine 01/25/21 documented as of this encounter
--- OUTSIDE RECORDS SUMMARY | 2024-04-29 13:13 | XMS_ITS | Encounter Summary ---
Author Organization [facility] [place] [address] Care Team Providers Care [employer] Tm1 Developer Name Role Phone Pattie Acosta Primary Care Provider +1- [phone] Encounter Details Date Type Department Care Team (Latest Contact Info) Description 03/13/2017 9:02 AM EDT - 03/13/2017 1:27 PM EDT Hospital [place] [address] Hany Chase [place] [facility] [place] [address] Discharge Disposition: Home Social History Tobacco Use [...] buttocks. 2. Pain medications ?? Please take qexk-bte-klkmuac pain medications for post-operative discomfort. ?? Acetaminophen [...] . Divison of Colon and Rectal Surgery, [facility] [address] ??? GAYLA Garcia [phone] ??? documented in this encounter Medications at [...] Chase MD General Surgery Interval H&P Ed Carrasco,[id number] ID: Since last seen in clinic, no [...] DEEP performed by Nadeem Pavon MD at [facility] OR ??? PRO LARYNGOSCOPY, DIRECT, DX, OP MICROSCOP N/A 08/31/2015 LARYNGOSCOPY, WITH MICROSCOPE performed by Nadeem Pavon MD at [facility] MAIN OR No current facility-administered medications on [...] Contreras MD - 03/13/2017 1:03 PM EDT [facility] Operative Note Patient Name: Ed Carrasco : [id number] MR#: [id number] Case Date: 03/13/2017 Surgeon: Surgeon(s) and Role: [...] manner. A time out was performed per [facility] protocol. 30 ml of local anesthetic was injected as a field block. A Pop [place] was used to inspect the anal canal [...] Operative Note Patient Name: Ed Carrasco : [id number] MR#: [id number] Case Date: 03/13/2017 Surgeon: Surgeon(s) and Role: [...] manner. A time out was performed per [facility] protocol. 30 ml of local anesthetic was injected as a field block. A Pop [place] was used to inspect the anal canal [...] 4:30 PM EDT Office Visit Dermatology at [facility] [address] [place] [address] Gary Kasper MD [address] [facility] [place] [address] documented as of this encounter Procedures Procedure [...] Report (03/13/2017 12:25 PM EDT) Final Diagnosis [id number] ? Location: [facility]; [facility]; The signing pathologist has (i) examined [...] Sections/Processing: (T1) ??sns 03/20/2017 10:25 AM EDT [facility] GI Biopsy 03/13/2017 12:2 5 [...] PM EDT Hany Chase MD PATHOLOGY/CYTOLOGY ORDERABLES [facility] [place] [address] * Specimen to Pathology (surgical or derm) (03/13/2017 12:25 PM EDT) AP Specimen 03/13/2017 12:2 5 PM EDT 03/13/2017 12:25 PM EDT Narrative [facility] - 03/13/2017 12:25 PM EDT Specimen requisition ordered. ??Separate Pathology report to follow Hany Chase MD PATHOLOGY/CYTOLOGY ORDERABLES Performing Organization Address [facility]/[place] [address] * Specimen to Pathology (surgical or derm) (03/13/2017 12:25 PM EDT) AP Specimen 03/13/2017 12:2 5 PM EDT 03/13/2017 12:25 PM EDT Narrative [facility] - 03/13/2017 12:25 PM EDT Specimen requisition ordered. ??Separate Pathology report to follow Hany Chase MD PATHOLOGY/CYTOLOGY ORDERABLES Performing Organization Address [facility] [place] [address] * Specimen to Pathology (surgical or derm) (03/13/2017 12:25 PM EDT) AP Specimen 03/13/2017 12:2 5 PM EDT 03/13/2017 12:25 PM EDT Narrative [facility] - 03/13/2017 12:25 PM EDT Specimen requisition ordered. ??Separate Pathology report to follow Hany Chase MD PATHOLOGY/CYTOLOGY ORDERABLES Performing Organization Address [facility] [place] [address] * Specimen to Pathology (surgical or derm) (03/13/2017 12:25 PM EDT) AP Specimen 03/13/2017 12:2 5 PM EDT 03/13/2017 12:25 PM EDT [facility] - 03/13/2017 12:25 PM EDT Specimen requisition ordered. ??Separate Pathology report to follow Hany Chase MD PATHOLOGY/[place] [address] * Specimen to Pathology (surgical or derm) (03/13/2017 12:25 PM EDT) AP Specimen 03/13/2017 12:2 5 PM EDT 03/13/2017 12:25 PM EDT Narrative [facility] - 03/13/2017 12:25 PM EDT Specimen requisition ordered. ??Separate Pathology report to follow Hany Chase MD PATHOLOGY/[place] [address] * Specimen to Pathology (surgical or derm) (03/13/2017 12:25 PM EDT) AP Specimen 03/13/2017 12:2 5 PM EDT 03/13/2017 12:25 PM EDT Narrative [facility] - 03/13/2017 12:25 PM EDT Specimen requisition ordered. ??Separate Pathology report to follow Hany Chase MD PATHOLOGY/CYTOLOGY ORDERABLES Performing Organization Address City/[facility]/[place] [address] * Specimen to Pathology (surgical or derm) (03/13/2017 12:25 PM EDT) AP Specimen 03/13/2017 12:2 5 PM EDT 03/13/2017 12:25 PM EDT Narrative [facility] - 03/13/2017 12:25 PM EDT Specimen requisition ordered. ??Separate Pathology report to follow Hany Chase MD PATHOLOGY/[place] [address] * Specimen to Pathology (surgical or derm) (03/13/2017 12:25 PM EDT) AP Specimen 03/13/2017 12:2 5 PM EDT 03/13/2017 12:25 PM EDT Narrative [facility] - 03/13/2017 12:25 PM EDT Specimen requisition ordered. ??Separate Pathology report to follow Hany Chase MD PATHOLOGY/CYTOLOGY ORDERABLES [facility] [place] [address] documented in this encounter Visit Diagnoses Not on filedocumented in this encounter Administered Medications Inactive Administered Medications - up to 3 most recent administrations Medication Order MAR Action Action Date Dose Rate Site ketorolac (TORADOL) 15 mg/mL injection 1 [...] AM EDT 1,000 mLs 100 mL/hr lidocaine (XYLOCAINE) 10 mg/mL (1 %) injection [...] 1055 (New Bag - Prov ider: Evelyn Espinosa, HEATHER) PRN Medication Order 03/11/2017 03/12/2017 03/13/2017 BUpivacaine-EPINEPHrine [...] Routine 1055 (Given - Provid er: Evelyn Espinosa RN) documented in this encounter Care Teams [employer] Tm1 Developer Relationship Specialty Start Date End Date Pattie Acosta PA [address] [place] [address] PCP - General Family Medicine 06/04/15 02/04/20 documented as of this encounter
--- OUTSIDE RECORDS SUMMARY | 2024-04-29 13:13 | XMS_ITS | Encounter Summary ---
[place] [address] Care Team Providers Care Finished Stock Inspector Name Role Phone Pattie Acosta Primary Care Provider +1- [phone] Reason for Referral * Physical Therapy (Routine) - Specialty Diagnoses / Procedures Referred By Linda hwang Referred To Contact Physical Therapy Diagnoses Shoulder stiffness, left Nadeem Pavon MD [facility] [place] [address] Referral ID Status Reason Start Date Expiration Date V isits Requested Visits Authorized [id number] Evaluate and Treat 11/17/2015 05/15/2016 24 24 Reason for Visit * Reason Comments Follow-up 2 month, shoulder pa in Encounter Details Date Type Department Care Team (Late st Contact Info) Description 11/17/2015 4:00 PM EDT Office [place] [address] Nadeem Pavon MD [facility] [address] [place] [address] Shoulder stiffness, left Social History Tobacco Use Types Packs/Day Years [...] Sign Reading Time Taken Comments Blood Pressure 144/81 11/17/2015 4:04 PM EDT Pulse 61 11/17/2015 4:04 PM EDT Temperature - - Respiratory Rate - - Oxygen Saturation - - Inhaled Oxygen Concentration - - Weight 78 kg (172 lb) 11/17/2015 4:04 PM EDT Height - - Body Mass Index 25.4 09/15/2015 4:20 PM EDT documented in this encounter Progress Notes * Nadeem Pavon MD - 11/17/2015 5:11 PM EDT Images from the original note were not included. Subjective: Patient ID: Ed Carrasco is a 60 y.o. male. HPI Ed Carrasco is seen in follow up of his nearly 1 year hx of a left neck mass. He was taken to the OR for excision of the mass about august 2015. Mass measuring 4cm x 2 cm x 2 cm.Concern was if this represented malignancy. Pathology: DIAGNOSIS A - Neck mass, left, excision: ?? - Reactive lymph node hyperplasia. Negative for malignancy (see ? Discussion). Since last visit, reports doing ok with the neck. Concerned about mobility of his left shoulder, inparticular pain over the left deltoid region limiting his ability to abduct his shoulder superiorly. He has no upper extremity radiculopathy. He denies inability to shrig his shoulder. Background: He reported noting a mass in the [...] recently and underwent imaging. NO tissue biopsy. Former 20 pk year smoker until 12 years ago, non drinker. No use of chewing tobacco. History reviewed. No pertinent past medical history. Past Surgical History Procedure Laterality Date ??? Colon surgery ??? Hernia repair ??? Pro excision branc clft cyst, deep Left 08/31/2015 EXCISION BRANCHIAL CLEFT CYST, VESTIGE OR FISTULA, DEEP [facility] ??? Pro laryngoscopy, direct, dx, op microscop N/A 08/31/2015 LARYNGOSCOPY, WITH MICROSCOPE performed by Nadeem Pavon MD at [facility] OR Current Outpatient Prescriptions: ??? ibuprofen (ADVIL;MOTRIN) 600 mg Tablet, Take 600 mg by mouth 2 times daily., Disp: , Rfl: ??? multivitamin (THERAGRAN) tablet, Take 1 tablet [...] otherwise negative. History Social History ??? Marital status: Single Spouse name: N/A ??? Number of children: N/A ??? Years of education: N/A Occupational History ??? Not on file. Social History Main Topics ??? Smoking status: Former Smoker Quit date: 2002 ??? Smokeless tobacco: Not on file Comment: Quit appox 12 yrs ago ??? Alcohol use: No ??? Drug use: No ??? Sexual activity: Not Currently Other Topics Concern ??? Not on file Social History Narrative [employer] in the last 26 years. Review [...] stridor. No respiratory distress. Lymphadenopathy: He has no cervical adenopathy (healing incision in left neck). Neurological: He is alert and oriented to person, place, and time. He has normal reflexes. No cranial nerve deficit. Skin: Skin is warm. He is not diaphoretic. No erythema. Psychiatric: He has a normal mood and affect. His behavior is normal. Judgment and thought content normal. Nursing note and vitals reviewed. Pathology: A - Neck mass, left, excision: ?? - Reactive lymph node hyperplasia. Negative for malignancy (see ? Discussion). Assessment and Plan: Patient with 12 mo hx of left neck mass s/p excision with reactive findings. Has persisting pain and discomfort in left shoulder region and I am not sure why that is. As part of the removal of this mass, the accessory nerve was kept completely intact. Patient very pleased about the care he received Explained importance of PT and I made referral on his behalf documented in this encounter Plan of Treatment Upcoming Encounters Date Type Department Care Team (Late st Contact Info) Description 10/18/2024 4:30 PM EDT Office Visit Dermatology at [facility] [address] [place] [address] Gary Kasper MD [address] [facility] [place] [address] Scheduled Referrals Name Type Priority Associated Diagnoses Orde r Schedule Referral to Physical Therapy Outpatient Referral Routine Shoulder stiffness, left Ordered: 11/17/2015 documented as of this encounter Visit Diagnoses Diagnosis Shoulder stiffness, left documented in this encounter Care Teams Finished Stock Inspector Relationship Specialty Start Date End Date Pattie Acosta PA [address] [place] [address] PCP - General Family Medicine 06/04/15 02/04/20 documented as of this encounter
--- OUTSIDE RECORDS SUMMARY | 2024-04-29 13:13 | XMS_ITS | Encounter Summary ---
Author Organization [facility] [place] [address] Care Team Providers Care Blocker And Cutter Contact Lens Name Role Phone Pattie Acosta Primary Care Provider +1- [phone] Reason for Visit * Reason Comments Follow-up 2 month f/up Encounter Details Date Type Department Care Team (Late st Contact Info) Description 01/26/2016 4:40 PM EDT Office [place] [address] Nadeem Pavon MD [facility] [place] [address] Neck mass Social History Tobacco Use Types Packs/Day Years [...] Sign Reading Time Taken Comments Blood Pressure 118/77 01/26/2016 4:45 PM EDT Pulse 59 01/26/2016 4:45 PM EDT Temperature - - Respiratory Rate - - Oxygen Saturation - - Inhaled Oxygen Concentration - - Weight 77.1 kg (170 lb) 01/26/2016 4:45 PM EDT Height 175.3 cm (5' 9) 01/26/2016 4:45 PM EDT Body Mass Index 25.1 01/26/2016 4:45 PM EDT documented in this encounter Progress Notes * Nadeem Pavon MD - 01/26/2016 4:40 PM EDT Images from the original note were not included. Subjective: Patient ID: Ed Carrasco is a 60 y.o. male. HPI Ed Carrasco is seen in follow up of his nearly 1 year hx of a left neck mass. He was taken to the OR for excision of the mass about August 2015. Mass measuring 4cm x 2 cm x 2 cm.Concern was if this represented malignancy. Following his surgery he then reported doing ok with the neck. Was concerned about mobility of his left shoulder, in particular pain over the left deltoid region limiting his ability to abduct his shoulder superiorly. He has no upper extremity radiculopathy. He denies inability to shrig his shoulder. He was referred to PT and did notice a significant improvement in his shoulder mobility. Upcomingappt next week. Denies any pain in his shoulder or neck. Background: He reported noting a mass in [...] non drinker. No use of chewing tobacco. No past medical history on file. Past Surgical History Procedure Laterality Date ??? Colon surgery ??? Hernia repair ??? Pro excision branc clft cyst, deep Left 08/31/2015 EXCISION BRANCHIAL CLEFT CYST, VESTIGE OR FISTULA, DEEP performed by Nadeem Pavon MD at [facility] OR ??? Pro laryngoscopy, direct, dx, op microscop N/A 08/31/2015 LARYNGOSCOPY, WITH MICROSCOPE performed by Nadeem Pavon MD at [facility] MAIN OR Current Outpatient Prescriptions: ??? tacrolimus (PROTOPIC) 0.1 % Ointment, Apply to affected areas on face 1-2 times daily as neededfor maintenance., Disp: 30 g, Rfl: 1 ??? doxycycline (VIBRAMYCIN) 50 mg Capsule, Take 1 capsule daily., Disp: 60 capsule, Rfl: 2 ??? ibuprofen (ADVIL;MOTRIN) 600 mg Tablet, Take [...] melanoma in situ Z87.898 ??? Psoriasis L40.9 Family History Problem Relation Age of Onset ??? Heart Disease Mother ??? Diabetes Other There is no pertinent family history of otolaryngologic problems Review of Systems: A complete review of constitutional, eyes, cardiovascular, respiratory, GI, , musculo-skeletal, skin, endocrine, psychiatric, hematologic, lymphatic and immunologic systems is completed and is as noted in the HPI. All other systems are otherwise negative. Social History Social History ??? Marital status: Single Spouse name: N/A ??? Number of children: N/A ??? Years of education: N/A Occupational History ??? Not on file. Social History Main Topics ??? Smoking status: Former Smoker Quit date: 2002 ??? Smokeless tobacco: Not on file Comment: Quit appox 12 yrs ago ??? Alcohol use No ??? Drug use: No ??? Sexual activity: Not Currently Other Topics Concern ??? Not on file Social History Narrative [employer] in the last 26 years. [...] He has normal reflexes. No cranial nerve deficit (able to fully elevate his left shoulder and left arm, normal deltoid and trapeziusfunction, ). Skin: Skin is warm. He is not diaphoretic. No erythema. Psychiatric: He has a normal mood and affect. His behavior is normal. Judgment and thought content normal. Nursing note and vitals reviewed. Pathology: A - Neck mass, left, excision: ?? - Reactive lymph node hyperplasia. Negative for malignancy (see ? Discussion). Assessment and Plan: Patient s/p excision with reactive findings. Pain completely relieved and shoulder function improved. No concern. Patient very pleased about the care he received See PRN documented in this encounter Plan of Treatment Upcoming Encounters Date Type Department Care Team (Late st Contact Info) Description 10/18/2024 4:30 PM EDT Office Visit Dermatology at [facility] [address] [place] [address] Gary Kasper MD [address] [place] [address] documented as of this encounter Visit Diagnoses Diagnosis Neck mass Swelling, mass, or lump in head and neck documented in this encounter Care Teams Blocker And Cutter Contact Lens Relationship Specialty Start Date End Date Pattie Acosta PA [address] [place] [address] PCP - General Family Medicine 06/04/15 02/04/20 documented as of this encounter
--- OUTSIDE RECORDS SUMMARY | 2024-04-29 13:13 | XMS_ITS | Encounter Summary ---
Author Organization [facility] [place] [address] Care Team Providers Care Ssis Architect Name Role Phone Pattie Acosta Primary Care Provider +1- [phone] Encounter Details Date Type Department Care Team (Late st Contact Info) Description 12/21/2016 Telephone Dermatology at [facility] [address] [place] [address] Vickie Gomez PA [facility] [address] [place] [address] Social History Tobacco Use Types Packs/Day Years [...] encounter Miscellaneous Notes * Telephone Encounter - Chelita Archibald CMA - 12/21/2016 9:55 AM EDT See phone note documented in this encounter Plan of Treatment Upcoming Encounters Date Type Department Care Team (Late st Contact Info) Description 10/18/2024 4:30 PM EDT Office Visit Dermatology at [facility] [address] [place] [address] Gary Kasper MD [address] [facility] [place] [address] documented as of this encounter Visit Diagnoses Not on filedocumented in this encounter Care Teams Ssis Architect Relationship Specialty Start Date End Date Pattie Acosta PA [address] [place] [address] PCP - General Family Medicine 06/04/15 02/04/20 documented as of this encounter
--- OUTSIDE RECORDS SUMMARY | 2024-04-29 13:13 | XMS_ITS | Encounter Summary ---
Author Organization [facility] [place] [address] Care Team Providers Care Special Officer Automat Name Role Phone Pattie Acosta Primary Care Provider +1- [phone] Encounter Details Date Type Department Care Team (Late st Contact Info) Description 12/19/2016 Telephone Dermatology at [facility] [address] [place] [address] Vickie Gomez PA [facility] [address] [place] [address] Social History Tobacco Use Types Packs/Day Years [...] encounter Miscellaneous Notes * Telephone Encounter - Eli Hernandez - 12/19/2016 8:49 AM EDT I received a call from Ed Carrasco wanting to get a refill on his Doxycycline. Ed uses the [facility] in [facility]. Best number to reach him back is [phone]. documented in this encounter Plan of Treatment Upcoming Encounters Date Type Department Care Team (Late st Contact Info) Description 10/18/2024 4:30 PM EDT Office Visit Dermatology at [facility] [address] [place] [address] Gary Kasper MD [address] [facility] [place] [address] documented as of this encounter Visit Diagnoses Not on filedocumented in this encounter Care Teams Special Officer Automat Relationship Specialty Start Date End Date Pattie Acosta PA [address] [place] [address] PCP - General Family Medicine 06/04/15 02/04/20 documented as of this encounter
--- OUTSIDE RECORDS SUMMARY | 2024-04-29 13:13 | XMS_ITS | Encounter Summary ---
Author Organization [facility] [place] [address] Care Team Providers Care Thread Spinner Name Role Phone None Primary Care Provider Unavailabl e Encounter Details Date Type Department Care Team (Late st Contact Info) Description 02/19/2020 8:20 AM EDT - 02/19/2020 9:10 AM EDT Surgery [facility] [place] [phone] Nas Gutierres MD [facility] [place] [address] CYSTOURETHROSCOPY W/ INSERTION OF PERMANENT ADJUSTABLE TRANSPROSTATIC IMPLANT; SINGLE IMPLANT (WRVU 4) Social History Tobacco Use Types Packs/Day Years [...] Sign Reading Time Taken Comments Blood Pressure 97/60 02/19/2020 9:01 AM EDT Pulse 62 02/19/2020 9:01 AM EDT Temperature 36 ??C (96.8 ??F) 02/19/2020 8:49 AM EDT Respiratory Rate 16 02/19/2020 9:01 AM EDT Oxygen Saturation 98% 02/19/2020 9:01 AM EDT Inhaled Oxygen Concentration - - Weight 79.4 kg (175 lb) 02/19/2020 7:15 AM EDT Height 175.3 cm (5' 9) 02/19/2020 7:15 AM EDT Body Mass Index 25.84 02/19/2020 7:15 AM EDT documented in this encounter Discharge Instructions * Discharge Instructions* Melanie Uribe, RN - 02/19/2020 9:05 AM EDT Images [...] closest emergency room or call the hospital tool turret lathe set up operator at [phone] and ask for physician applications architect covering for your physician. Questions or problems after 5pm or on a weekend: Call the [facility] tool turret lathe set up operator at and ask for the physician applications architect covering for your doctor. Ruffin Catheter Care [...] closest emergency room or call the hospital tool turret lathe set up operator at [phone] and ask for physician applications architect covering for your physician. * Patient Instructions* [...] catheter stops draining pleasecall our office at [phone] before 5PM or [phone] after hours. It is normal to have [...] and vomiting, or for any fevers greater znut608.3 F. The number for questions is [phone] before 5 PM weekdays and [phone] after 5 PM and weekends. Pain Medication: [...] 4.04) performed by Hany Chase MD at [facility] MAIN OR ??? PRO COLONOSCOPY, REMV LESN, SNARE N/A 03/05/2018 COLONOSCOPY, POLYPECTOMY, REMOVAL LESION BY SNARE (WRVU 4.67) performed by Ed Shah MD at [facility] ENDOSCOPY ??? PRO EXCISION BRANC CLFT CYST, DEEP Left 08/31/2015 EXCISION BRANCHIAL CLEFT CYST, VESTIGE OR FISTULA, DEEP [facility] ??? PRO LARYNGOSCOPY, DIRECT, DX, OP MICROSCOP N/A 08/31/2015 LARYNGOSCOPY, WITH MICROSCOPE performed by Nadeem Pavon MD at [facility] MAIN OR ??? PRO SURG DIAGNOSTIC EXAM, ANORECTAL N/A 03/13/2017 ANORECTAL EXAM, REQUIRING ANESTHESIA, DIAGNOSTIC (WRVU 1.8) performed by Hany Chase MD [facility] MAIN OR ALLERGIES Allergies Allergen Reactions ??? [...] Crane MD - 02/19/2020 8:46 AM EDT [facility] Operative Note Patient Name: Ed Carrasco : [id number] MR#: [id number] Case Date: 02/19/2020 Surgeon: Surgeon(s) and Role: * Nas Gutierres MD - Primary * Crane, Christopher C, MD - Resident Preoperative diagnosis: BPH Postoperative [...] anteriorly.There was very minimal bleeding. A 16 Bengali Ruffin catheter was placed with 10 cc [...] [facility] [address] [place] [address] Gary Kasper MD [address] [facility] [place] [address] documented as of this encounter Procedures Procedure Name Priority Date/Time Associated Diagnosis Comments Cysto Insertion Transstatic Implant Ea Addl ([id number]) 02/19/2020 8:22 AM EDT BPH with obstruction/lower urinary tract symptoms Cysto Insertion Transstatic Implant Single ([id number]) 02/19/2020 8:22 AM EDT BPH with obstruction/lower [...] and other lower urinary tract symptoms (LUTS) BPH with obstruction/lower urinary tract symptoms Hypertrophy of prostate with urinary obstruction and other lower urinary tract symptoms (LUTS) documented in this encounter Admitting Diagnoses Diagnosis BPH with obstruction/lower urinary tract symptoms Hypertrophy of prostate with urinary obstruction and other lower urinary tract symptoms (LUTS) documented in this encounter Administered Medications Inactive Administered Medications - up to 3 most recent administrations Medication Order MAR Action Action Date Dose Rate Site lidocaine ((GLYDO)) 2 % gel ONCE PRN, Starting on Mon02/19/20 at 0843, Until Mon02/19/20 at 1144, Intra-Operative (Intra-Procedure), Routine Given 02/19/2020 8:43 AM EDT 11 mLs documented in this encounter Active and Recently Administered Medications Times are shown in EDT. Scheduled Medication Order 02/17/2020 02/18/2020 02/19/2020 ceFAZolin (Ancef) 2 g in dextrose 5% 100 mL infusion (COMPLETED) 2 g, Intravenous, WHEEL INSPECTOR TO O.R., 1 dose, On Mon02/19/20 at [...] MD) documented in this encounter Care Teams Thread Spinner Relationship Specialty Start Date End Date None None PCP - General 02/13/20 01/24/21 documented as of this encounter
--- OUTSIDE RECORDS SUMMARY | 2024-04-29 13:13 | XMS_ITS | Encounter Summary ---
Author Organization Formerly [facility] [place] [address] Care Team Providers Care Data Analysis Intern Name Role Phone Pattie Acosta Primary Care Provider +1- [phone] Reason for Visit * Reason Comments Skin Check hx of MIS Encounter Details Date Type Department Care Team (Late st Contact Info) Description 11/05/2018 10:00 AM EDT Office Visit Dermatology at [facility] [address] [place] [address] Gary Kasper MD [address] [facility] [address] Vickie Gomez PA [facility] [address] ERIN [place] [address] Seborrheic dermatitis; Skin tag; Multiple benign nevi; History of melanoma in situ; History of dysplastic nevus; Sebaceous hyperplasia Social History Tobacco Use Types Packs/Day Years [...] Progress Notes * Vickie Gomez PA - 11/05/2018 10:00 AM EDT DERMATOLOGY - ESTABLISHED PATIENT CLINIC NOTE Date of service: 11/05/2018 Ed Carrasco : 1955 Dermatology Physician Real Estate Valuer Note: Vickie (Ana) SOLEDAD GomezC Chief Complaint Patient presents with ??? Skin Check hx of [facility] This is an established patient, last seen by myself on 11/20/2017. HPI: Ed Carrasco is a 63 y.o. male who presents for today for a full skin exam with an itchy lesion onthe left neck of concern today. He also has an itchy scalp. He uses OTC psoriasis shampoo. 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 (Excised 10/15/09) ? Rosacea (Sulfacet (blistered his forehead), Metrogel, Hydrocortisone 1%, Clindamycin, Metronidazole 500mg BID x 10 days, Ketoconazole 2% cream) Seborrheic dermatitis ?? 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 No Defibrillator/pacemaker No Anti-coagulants Medications: Current Outpatient Medications on File Prior to Visit Medication Sig Dispense Refill ??? doxycycline (VIBRAMYCIN) 50 mg Capsule Take 1 capsule daily. (Patient not taking: Reported on 11/05/2018) 30 capsule 0 ??? aspirin 81 mg Tablet, Delayed Release (E.C.) Take 81 mg by mouth daily. ??? acetaminophen (TYLENOL) 325 mg Tablet Take 2 tablets by mouth every 4 hours as needed for Pain.30 tablet 1 ??? 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 Buttocks were also examined with patient consent. Genitalia not examined. Diagnosis/Assessment/Treatment Plan: 1. History of MIS - Central upper back: well healed scar s/p excision. - No cervical, supraclavicular, inguinal or axillary lymphadenopathy noted. - No evidence of recurrence. - Continue to monitor. 2. Sebaceous hyperplasias - Scattered 0.2-0.3cm yellowish papules with central umbilication on the forehead and left upper arm. - Patient reassured of benign nature. - No treatment necessary. 3. Benign appearing nevi - Trunk and extremities: Multiple, 0.3-0.5cm, medium- brown, evenly-pigmented macules and papules. All with regular [...] size or character. Call if such occur. 4. Benign appearing dysplastic nevus superior to but not involving the melanoma in situ scar - Leftupper back superior to excision scar: 3mm irregular medium brown macule. - Will continue to monitor. - Observe skin for change in color, size or character. Call if such occur. 5. Seborrheic dermatitis- Loose greasy scale of the scalp, eyebrows, and glabella - Rx: Ketoconazole shampoo; Apply to affected areas on the scalp daily until clear and then 1-2 times weekly. Lather, leave for 5-10 min, then rinse. - Rx: Fluocinonide solution- apply daily to itchy areas on the scalp 6. Inflamed skin tag- Left neck- fleshy pedunculate papules 3 skin tags were sniped off with no complications [address] 1 year full skin exam, reminder placed in the system today Patient verbally expressed understanding. I specifically asked the patient at the end of the visit if there were any further concerns or questions and the patient verbally stated there were no other concerns or questions. All questions were answered and all concerns were addressed. Note initiated by Chelita Archibald CMA- I am documenting this encounter acting as the scribe for and in the presence of Vickie Gomez PA-C (Bri) I performed the above scribed service and agree with the accuracy of the documentation in this encounter. Reviewed and signed by Vickie Lacey) JAQUELIN Gomez Dermatology [facility] Patient seen in conjunction with staff physician: Gary Kasper MD Section of Dermatology [facility] * Gary Kasper MD - 11/05/2018 10:00 AM EDT Examination Focused examination of the face, neck, back, chest, back, upper extremities and anterior lower extremities significant for the following: ?? Well-demarcated, round or oval, johnson or brown macules and papules with benign morphology on the face, neck, trunk and extremities ?? No evidence of recurrence in the scar on the left upper back Assessment and Plan Nevi Morphology reassuring for benign nevi. Return to clinic prn for changes in color, size, shape or thickness or should bleeding or other symptoms occur. History of Melanoma in situ No evidence of recurrence Patient seen in conjunction with Ana Gomez PA-C. Gary Kasper MD FAAD Section of Dermatology [facility] documented in this encounter Plan of Treatment Upcoming Encounters Date Type Department Care Team (Late st Contact Info) Description 10/18/2024 4:30 PM EDT Office Visit Dermatology at [facility] [address] [place] [address] Gary Kasper MD [address] [facility] [facility] [place] [address] documented as of this encounter Visit Diagnoses Diagnosis Seborrheic dermatitis Seborrheic dermatitis, unspecified Skin tag Unspecified hypertrophic and atrophic condition of skin Multiple benign nevi Benign neoplasm of skin, site unspecified History of melanoma in situ Personal history of malignant melanoma of skin History of dysplastic nevus Personal history of diseases of skin and subcutaneous tissue Sebaceous hyperplasia Other specified disease of sebaceous glands documented in this encounter Care Teams Data Analysis Intern Relationship Specialty Start Date End Date Pattie Acosta PA [address] [place] [address] PCP - General Family Medicine 06/04/15 02/04/20 documented as of this encounter
--- OUTSIDE RECORDS SUMMARY | 2024-04-29 13:13 | XMS_ITS | Encounter Summary ---
Author Organization [facility] [place] [address] Care Team Providers Care Mainspring Former Brace End Name Role Phone Pattie Acosta Primary Care Provider +1- [phone] Reason for Visit * Reason Onset Date Comments Medication Refill 04/12/2022 Encounter Details Date Type Department Care Team (Late st Contact Info) Description 04/12/[address] [facility] [address] [place] [address] Meli Delgadillo MD [facility] [place] [address] Rosacea Social History Tobacco Use Types Packs/Day [...] PM EDT Office Visit Dermatology at [facility] [address] [place] [address] Gary Kasper MD [address] [facility] [address] [place] [address] documented as of this encounter Visit Diagnoses Diagnosis Rosacea documented in this encounter Care Teams Mainspring Former Brace End Relationship Specialty Start Date End Date Pattie Acosta PA [address] [place] [address] PCP - General Family Medicine 01/25/21 documented as of this encounter
--- OUTSIDE RECORDS SUMMARY | 2024-04-29 13:13 | XMS_ITS | Encounter Summary ---
Author Organization [facility] [place] [address] Care Team Providers Care Insurance Representative Name Role Phone Pattie Acosta Primary Care Provider +1- [phone] Reason for Visit * Reason Comments Skin Check history of MIS Encounter Details Date Type Department Care Team (Late st Contact Info) Description 11/20/2017 10:00 AM EDT Office Visit Dermatology at [facility] [address] [place] [address] Gary Kasper MD [address] [facility] [place] [address] Vickie Gomez PA [facility] [address] [place] [place] [address] History of melanoma in situ; Rosacea; Sebaceous hyperplasia; Multiple benign nevi; SK (seborrheic keratosis); History of psoriasis; Lipoma, unspecified site Social History Tobacco Use Types Packs/Day Years [...] Progress Notes * Vickie Gomez PA - 11/20/2017 10:00 AM EDT DERMATOLOGY - ESTABLISHED PATIENT CLINIC NOTE Date of service: 11/20/2017 Ed Carrasco : 1955 Dermatology Physician Corporate Giving Manager Note: Vickie (Ana) SOLEDAD GomezC Chief Complaint Patient presents with ??? Skin Check history of MIS This is an established patient, last seen by myself on 01/02/2017. HPI: Ed Carrasco is a 62 y.o. male who presents for today for a full skin exam. Reports a lump under the skin on the right forearm present for a very long time that sometimes looks a little pinker than today. It hasn't changed size. Patient states the psoriasis on his elbows is well controlled with the OTC Psoriasin cream he has been using. 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 (Excised 10/15/09) ? Rosacea (Sulfacet (blistered his forehead), Metrogel, Hydrocortisone 1%, Clindamycin, Metronidazole 500mg BID x 10 days, Ketoconazole 2% cream) Seborrheic dermatitis ?? Psoriasis ?? 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 No Defibrillator/pacemaker No Anti-coagulants Medications: Current Outpatient Prescriptions on File Prior to Visit Medication Sig Dispense Refill ??? doxycycline (VIBRAMYCIN) 50 mg Capsule Take 1 capsule daily. 90 capsule 3 ??? acetaminophen (TYLENOL) 325 mg Tablet Take 2 tablets by mouth every 4 hours as needed for Pain.30 tablet 1 ??? imiquimod (ALDARA) 5 % Cream in Packet Apply topically three times a week. (Patient not taking:Reported on 11/20/2017) 36 each 0 ??? 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 Genitalia not examined. Diagnosis/Assessment/Treatment Plan: 1. Rosacea - No active papules today. - Continue Protopic 0.1% ointment, apply to face as needed. - Continue Doxycycline 50mg, take 1 capsule daily - Advised patient it is okay to increase Doxycyline dose if he should flare. 2. History of MIS - Central upper back: well healed scar s/p excision. - No cervical, supraclavicular, inguinal or axillary lymphadenopathy noted. - No evidence of recurrence. - Continue to monitor. 3. Lipoma vs angiolipoma - Right forearm: 1cm subcutaneous rubbery nodule. - Patient reassured of benign nature. - Advised patient to call if areas become inflamed or irritated. 4. Sebaceous hyperplasia - Scattered 0.2-0.3cm yellowish papules with central umbilication on the forehead and left upper arm. - Patient reassured of benign nature. - No treatment necessary. 5. Benign appearing nevi - Trunk and extremities: [...] or character. Call if such occur. 6. Seborrheic keratoses - Scattered: Multiple 0.4-0.6cm brown papules with waxy, stuck-on appearance. Milia-like cysts, comedone-like openings and/or fissuring on dermoscopy. - Patient reassured of benign nature. - Advised patient to call if areas become inflamed or irritated. 7. Benign appearing dysplastic nevus superior to but not involving the melanoma in situ scar - Leftupper back superior to excision scar: 3mm irregular medium brown macule. - Will continue to monitor. - Observe skin for change in color, size or character. Call if such occur. 8. Psoriasis, well controlled - Elbows are clear today. - Recommended patient continue using OTC creams. - Will continue to monitor. Instructed patient to call if no longer controlled. 9. Non-specific skin lesion, Right shoulder. Benign-appearing, traumatic linear erosion within lesion, reassured. Will monitor. [address] in 6 months for a full skin [...] signed by Vickie Gomez PA-C (Bri) Dermatology [facility] Patient seen in conjunction with staff physician: Gary Kasper MD Section of Dermatology [facility] * Gary Kasper MD - 11/20/2017 10:00 AM EDT Examination Focused examination of the right arm, back significant for the following: ?? Cushing 5mm papule with linear healing erosion on the right anterolateral superior arm ?? No evidence of recurrence in scar on the back ?? Well-demarcated, round or oval, johnson or brown macules and papules with benign morphology on the back Assessment and Plan Excoriation, Right Arm Favor excoriation over SCC v BCC. Return to clinic if still present in 12 weeks or if changes in color, enlarges, or should bleeding or other symptoms occur. History of Skin Cancer No evidence of recurrence Nevi Morphology reassuring for benign nevi. Return to clinic prn for changes in color, size, shape or thickness or should bleeding or other symptoms occur. Patient seen in conjunction with Ana Gomez PA-C. Gary Kasper MD FAAD Section of Dermatology [facility] documented in this encounter Plan of Treatment Upcoming Encounters Date Type Department Care Team (Late st Contact Info) Description 10/18/2024 4:30 PM EDT Office Visit Dermatology at [facility] [address] [place] [address] Gary Kasper MD [address] [facility] [place] [address] documented as of this encounter Visit Diagnoses Diagnosis History of melanoma in situ Personal history of malignant melanoma of skin Rosacea Sebaceous hyperplasia Other specified disease of sebaceous glands Multiple benign nevi Benign neoplasm of skin, site unspecified SK (seborrheic keratosis) Other seborrheic keratosis History of psoriasis Other psoriasis Lipoma, unspecified site documented in this encounter Care Teams Insurance Representative Relationship Specialty Start Date End Date Pattie Acosta PA [address] [place] [address] PCP - General Family Medicine 06/04/15 02/04/20 documented as of this encounter
--- OUTSIDE RECORDS SUMMARY | 2024-04-29 13:13 | XMS_ITS | Encounter Summary ---
Author Organization [facility] [place] [address] Care Team Providers Care Entry Level Drafter Name Role Phone Pattie Acosta Primary Care Provider +1- [phone] Encounter Details Date Type Department Care Team (Late st Contact Info) Description 02/03/2020 2:20 PM EDT [place] [id number] Nas [facility] [place] [address] BPH with obstruction/lower urinary tract symptoms (Primary Dx) Social History Tobacco Use Types Packs/Day Years [...] Sign Reading Time Taken Comments Blood Pressure 128/84 02/03/2020 2:10 PM EDT Pulse 67 02/03/2020 2:10 PM EDT Temperature - - Respiratory Rate - - Oxygen Saturation 100% 02/03/2020 2:10 PM EDT Inhaled Oxygen Concentration - - Weight - - Height - - Body Mass Index - - documented in this encounter Patient Instructions * Patient Instructions* Kortney Caballero RN - 02/03/2020 2:20 PM EDT Instructions following Cystoscopy Activity: As tolerated by your comfort level. Fluids: You should increase your water today. Avoid coffee, tea and cola. You do not need to [id number] ounces of water today. Urination: You will likely have a small amount of blood in your urine for the next several days. This is normal; however, if you are passing large amounts of blood clots or are unable to void please call our office at [phone] before 5PM or [phone] after hours. Please call if: * you have copious blood in your urine * fevers greater than 101.3 F * you are unable to void The number for questions is [phone] before 5 PM weekdays and [phone] after 5 PM and weekends. Follow-up: urolift with Dr. Gutierres on 02/19/20 documented in this encounter Procedure Notes * Nas Gutierres MD - 02/03/2020 2:20 PM EDTAssociated Order(s): CYSTOSCOPY Procedure(s): PRO CYSTOURETHROSCOPY Pre-Procedure Diagnose(s): BPH with obstruction/lower urinary tract symptoms Post-Procedure Diagnose(s): Benign prostatic hyperplasia, unspecified whether lower urinary tract symptoms present Clinic Procedure Note Patient Name: Ed Carrasco Date of Procedure: 02/03/2020 Pre-operative Diagnosis: BPH/LUTS desiring UroLift Post-operative Diagnosis: Mainly lateral lobe enlargement with high bladder neck from mild median lobe enlargement Surgeon: Nas Gutierres MD Anesthesia: 2% Lidocaine jelly per urethra. Estimated Blood Loss: None. Fluids in: None. Specimen: None Indications for Prodecure: The patient is a 64 y.o. male with a history of LUTS/BPH who presents today for cystoscopic evaluation. The risks, benefits and alternatives to procedure explained to the patient in detail and he agreed to proceed. Consent was obtained. Procedure Findings: The anterior urethra was normal without stricture. The prostate was notable forbilobar hyperplasia with a mild median lobe causing a high riding bladder neck. However no intravesical protrusion. The ureteral orifices were seen in their expected locations and there was evidence of clear efflux. The bladder was notable for 2+ trabeculations. There were no bladder or urethral mucosal lesions concerning for disease. Description of Procedure: The patient was taken to the office procedure room after a standard antibiotic preparation. He was placed in a supine position on the procedure table. The external genitaliawas prepped and draped in the usual fashion for cytoscopy. Local anesthesia with 2% Lidocaine jellyper urethra was administrated. After a surgical timeout, a flexible cystoscope was atraumatically passed into the bladder. Cystopanendoscopy was performed. The findings are as noted above. The cystoscope was then removed without difficulty. The patient tolerated the procedure without difficulty. Assessment: 64M with BPH who does not tolerate flomax. Prostate shows mostly lateral lobe enlargement with a mild/moderate median lobe causing a high riding bladder neck, but no intravesical component. I explained that UroLift would likely be able to help his urinary symptoms, but that he is likely to need a PVP or Rezum of the median lobe at some point down the line in as little as a few years because it could continue to grow and obstruct. Patient understands this and would still like to proceed with the UroLift for now. Plan: Proceed with UroLift Nas Gutierres MD Section of Urology [facility] Office: [phone] documented in this encounter Plan of Treatment Upcoming Encounters Date Type Department Care Team (Late st Contact Info) Description 10/18/2024 4:30 PM EDT Office Visit Dermatology at [facility] [address] [place] [address] Gary Kasper MD [address] [facility] [place] [address] documented as of this encounter Procedures Procedure Name Priority Date/Time Associated Diagnosis Comments HC URINE CULTURE Routine 02/03/2020 3:40 PM EDT BPH with obstruction/lower urinary tract symptoms PRO CYSTOURETHROSCOPY Routine 02/03/2020 2:20 PM EDT BPH with obstruction/lower urinary tract symptoms documented in this encounter Results * (ABNORMAL) Urine culture Clean Catch Urine (02/03/2020 3:40 PM EDT) Urine Culture 1,000-9,000 cfu/ml Gram Positive organisms , probable contaminant(A ) [facility] Urine specimen obtained by clean catch procedure (specimen) 02/03/2020 3:40 PM EDT 02/03/2020 6:38 PM EDT Narrative Resulting Agency Comment Spec In Lab Nas Gutierres MD MICROBIOLOGY - GENER AL ORDERABLES Performing Organization Address City/State/[facility] Co de Phone Number [facility] [place] [phone] * PRO CYSTOURETHROSCOPY (02/03/2020 2:20 PM EDT) Narrative Nas Gutierres MD - 02/03/2020 2:20 PM EDT Nas Gutierres MD ? 02/03/2020 ??5:17 PM Clinic Procedure Note Patient Name: Ed Carrasco Date of Procedure: 02/03/2020 Pre-operative Diagnosis: BPH/LUTS desiring UroLift Post-operative Diagnosis: Mainly lateral lobe enlargement with high bladder neck from mild median lobe enlargement Surgeon: Nas Gutierres MD Anesthesia: 2% Lidocaine jelly per urethra. Estimated Blood Loss: None. Fluids in: None. Specimen: None Indications for Prodecure: The patient is a 64 y.o. male with a history of LUTS/BPH who presents today for cystoscopic evaluation. The risks, benefits and alternatives to procedure explained to the patient in detail and he agreed to proceed. Consent was obtained. Procedure Findings: The anterior urethra was normal without stricture. The prostate was notable for bilobar hyperplasia with a mild median lobe causing a high riding bladder neck. However no intravesical protrusion. The ureteral orifices were seen in their expected locations and there was evidence of clear efflux. The bladder was notable for 2+ trabeculations. There were no bladder or urethral mucosal lesions concerning for disease. Description of Procedure: The patient was taken to the office procedure room after a standard antibiotic preparation. He was placed in a supine position on the procedure table. The external genitalia was prepped and draped in the usual fashion for cytoscopy. Local anesthesia with 2% Lidocaine jelly per urethra was administrated. After a surgical timeout, a flexible cystoscope was atraumatically passed into the bladder. Cystopanendoscopy was performed. The findings are as noted above. The cystoscope was then removed without difficulty. The patient tolerated the procedure without difficulty. Assessment: 64M with BPH who does not tolerate flomax. Prostate shows mostly lateral lobe enlargement with a mild/moderate median lobe causing a high riding bladder neck, but no intravesical component. I explained that UroLift would likely be able to help his urinary symptoms, but that he is likely to need a PVP or Rezum of the median lobe at some point down the line in as little as a few years because it could continue to grow and obstruct. Patient understands this and would still like to proceed with the UroLift for now. Plan: Proceed with UroLift Nas Gutierres MD Section of Urology [facility] Office: [phone] Nas Gutierres MD PROCEDURE ORDERAB LES documented in this encounter Visit Diagnoses Diagnosis BPH with obstruction/lower urinary tract symptoms- Primary Hypertrophy of prostate with urinary obstruction and other lower urinary tract symptoms (LUTS) documented in this encounter Care Teams Entry Level Drafter Relationship Specialty Start Date End Date Pattie Acosta PA [address] [place] [address] PCP - General Family Medicine 06/04/15 02/04/20 documented as of this encounter
--- OUTSIDE RECORDS SUMMARY | 2024-04-29 13:13 | XMS_ITS | Encounter Summary ---
[place] [address] Care Team Providers Care Gut Sorter Name Role Phone None Primary Care Provider Unavailabl e Encounter Details Date Type Department Care Team (Late st Contact Info) Description 02/19/2020 8:21 AM EDT Anesthesia Event [place] [address] Peter Cornelius MD [facility] [place] [address] Jacinto Yusuf MD [facility] [place] [address] Anesthesia Record Procedure Summary Procedure Name Responsible Anesthesiologist Anesthesia Start Time Anesthesia Stop Time CYSTOURETHROSCOPY W/ INSERTION OF PERMANENT ADJUSTABLE TRANSPROSTATIC IMPLANT; SINGLE IMPLANT (WRVU 4) (Ureter) Peter Cornelius MD 02/19/20 0821 02/19/20 0856 Events Date Time Event Comment 02/19/2020 0748 0821 Start 0824 AN Verify 0824 An Start Data 0824 Anesthesia Ready 0848 an stop data 0855 Recovery or ICU Handoff Ashley ent care was transferred to the destination unit staff after review of the patient's medical history, current anesthetic/surgical status and plan, according to the Provider Handoff Checklist. 0856 Stop Meds Name Total Midazolam 2 mg fentaNYL 100 mcg IV Lidocaine 20 mg Propofol 70 mg Propofol INF 142.92 mg ceFAZolin (Ancef) 2 g in dextrose 5% 100 mL infusion 2 g Ketorolac 30 mg Dexmedetomidine 4 mcg ePHEDrine 10 mg PHENYLephrine 160 mcg lactated ringers infusion 500 mL * Agents Name O2 Air N2O O2 Auxiliary Flowmeter 1 * Blood No blood administrations on file. [...] RN 02/14/22 1715 by Lida Sorenson Incision 03/13/17; 1220; anus ; 02/14/22 (LDA cleanup utility RA#[id number]); 1715 (LDA cleanup utility RA#[id number]) 03/13/17 1220 by Sri Davis RN 02/14/22 1715 by Lida Sorenson (RETIRED) Peripheral IV Line - Single Lumen 02/19/20; 0733; metacarpal vein (top of hand), right; [id number] catheter system; 22 gauge; no longer indicated, catheter/device intact; 02/19/20; 0931 02/19/20 0733 by Jerry Saldana, RN 02/19/20 0931 by Melanie Uribe RN Urethral Catheter 02/19/20; 0837; Urol ogic surgery; Physician order; indwelling double lumen catheter; 100% silicone; 16; inserted at this facility (Inserted by Dr. Gutierres); 10; 02/19/20; 0930 02/19/20 0837 by Desi Vega RN 02/19/20 09 by Neal Mejia RN documented in this encounter Social History Tobacco [...] OR Notes * Anesthesia Postprocedure Evaluation - Peter Cornelius MD - 02/19/2020 9:52 AM EDT Department of Anesthesiology Post-procedure Note Patient: Ed Carrasco Procedure Summary Date: 02/19/20 Room / Location: [facility] [place] [address] [place] [address] Anesthesia Start: 820 Anesthesia Stop: 855 Procedures: CYSTOURETHROSCOPY W/ INSERTION OF PERMANENT ADJUSTABLE TRANSPORSTATIC IMPLANT; SINGLE IMPLANT (N/A Ureter) CYSTOURETHROSCOPY W/ INSERTION OF PERMANENT ADJUSTABLE TRANSPORSTATIC IMPLANT; EA ADD'L IMPLANT (N/A Ureter) 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) Surgeon: Nas Gutierres MD Responsible Provider: Peter Cornelius MD Anesthesia Type: general ASA Status: 2 All Anesthesia Providers: Anesthesiologist: Peter Cornelius MD TRANSCRIPTIONIST: Zaida Stevenson CRNA Vitals Value Taken Time BP 124/78 02/19/20 0924 Temp 36 ??C (96.8 ??F) 02/19/20 0849 Pulse 64 02/19/20 0924 Resp 20 02/19/20 0924 SpO2 98 % 02/19/20 0901 Pain Level 0 02/19/20 09 Patient [facility] Level of Consciousness: Awake and Alert Pain Management: Satisfactory Analgesia PONV: None Cardiovascular Status: At Baseline and Hemodynamically Stable Respiratory Status: At Baseline and Room Air Postoperative Fluid Status: Intravascular EUvolemia Possible Anesthetic Complications: NONE apparent at time of evaluation Final Primary Anesthesia Type: MAC (The anesthetic type performed was the same as planned.) Comments: Peter Cornelius MD * Anesthesia Preprocedure Evaluation - Peter Cornelius MD - 02/19/2020 6:35 AM EDT Images from the original note were not included. Pre-Anesthesia Evaluation for: Ed Carrasco a 64 y.o. male. Procedure(s): CYSTOURETHROSCOPY W/ INSERTION OF PERMANENT ADJUSTABLE TRANSPORSTATIC IMPLANT; SINGLE IMPLANT CYSTOURETHROSCOPY W/ INSERTION OF PERMANENT ADJUSTABLE TRANSPORSTATIC IMPLANT; EA ADD'L IMPLANT Patient Active Problem List Diagnosis ??? BPH with obstruction/lower urinary tract symptoms Added automatically from request for surgery [id number] ??? Seborrheic dermatitis ??? History of melanoma [...] 4.04) performed by Hany Chase MD at [facility] OR ??? PRO COLONOSCOPY, REMV LESN, SNARE N/A 03/05/2018 COLONOSCOPY, POLYPECTOMY, REMOVAL LESION BY SNARE (WRVU 4.67) performed by Ed Shah MD at [facility] ENDOSCOPY ??? PRO EXCISION BRANC CLFT CYST, DEEP Left 08/31/2015 EXCISION BRANCHIAL CLEFT CYST, VESTIGE OR FISTULA, DEEP performed by Nadeem Pavon MD at [facility] OR ??? PRO LARYNGOSCOPY, DIRECT, DX, OP MICROSCOP N/A 08/31/2015 LARYNGOSCOPY, WITH MICROSCOPE performed by Nadeem Pavon MD at [facility] OR ??? PRO SURG DIAGNOSTIC EXAM, ANORECTAL N/A 03/13/2017 ANORECTAL EXAM, REQUIRING ANESTHESIA, DIAGNOSTIC (WRVU 1.8) performed by Hany Chase MD On license of [facility] OR Social History Tobacco Use ??? Smoking status: Former Smoker Quit date: 2002 Years since quittin.6 ??? Smokeless tobacco: Never Used ??? Tobacco comment: Quit appox 12 yrs ago Substance Use Topics ??? Alcohol use: Yes Alcohol/week: 1.0 standard drinks Types: 1 Cans of beer per week Social History Substance and Sexual Activity Drug Use No Allergies Allergen Reactions ??? Vicodin [Hydrocodone-Acetaminophen] Nausea And Vomiting ??? Percocet [Oxycodone-Acetaminophen] Nausea Only ??? Sulfa (Sulfonamide Antibiotics) Other (See Comments) swelling ??? Tamsulosin Other (See Comments) Lightheadedness Medications: MAR and/or home medications have been reviewed. Physical Exam: No data found. There is no height or weight on file to calculate BMI. Airway Assessment: Mallampati: II TM distance: >3 FB Neck ROM: full Cardiovascular Assessment: cardiovascular exam normal Pulmonary Assessment: pulmonary exam normal Dental Assessment: Misc Assessment: IV access: Peripheral line Other exam findings: Pulse regular, breathing unlabored Anesthesia Plan: ASA 2 general, with a(n) intravenous induction 64 yo m with BPH for urolift procedure. Former smoker. Otherwise healthy. No known coronary or pulmdisease. No issues with prior anesthetics. Grade 2/3 view with rigid bronch (ENT), eventually secured airwaywith bougie. Potentially difficult intubation. NPO appropriate. No recent changes in health. Plan [facility] Region - Other Informed Consent: Anesthetic plan and risks discussed with patient. Plan discussed with TRANSCRIPTIONIST. PAT Clinic Note documented in this encounter Plan of Treatment Upcoming Encounters Date Type Department Care Team (Late st Contact Info) Description 10/18/2024 4:30 PM EDT Office Visit Dermatology at [facility] [address] [place] [phone] Gary Kasper MD [address] [facility] [place] [address] documented as of this encounter Visit Diagnoses Not on filedocumented in this encounter Administered Medications Inactive Administered Medications - up to 3 most recent administrations Medication Order MAR Action Action Date Dose Rate Site ceFAZolin (Ancef) 2 g in dextrose 5% 100 mL infusion 2 g, Intravenous, PRINT LINE FEEDER TO O.R., 1 dose, On Mon02/19/20 at 0730, Administer over 30 Minutes, Day of Surgery (Day of Procedure), Indication for (Active or Suspected): Prophylaxis Given 02/19/2020 8:26 AM EDT 2 g dexmedetomidine (PRECEDEX) injection PRN, Starting on Mon02/19/20 at 0823, Until Mon02/19/20 at 0858, Anesthesia Intra-op, Routine Given 02/19/2020 8:23 AM EDT 4 mcg ePHEDrine 5 mg/mL multi-dose injection PRN, Starting on Mon02/19/20 at 0844, Until Mon02/19/20 at 0858, Anesthesia Intra-op, Routine Given 02/19/2020 8:50 AM EDT 5 mg Given 02/19/2020 8:44 AM EDT 5 mg fentaNYL 50 mcg/mL multi-dose injection PRN, Starting on Mon02/19/20 at 0822, Until Mon02/19/20 at 0858, Anesthesia Intra-op, Routine Given 02/19/2020 8:32 AM EDT 25 mcg Given 02/19/2020 8:27 AM EDT 25 mcg Given 02/19/2020 8:24 AM EDT 25 mcg ketorolac (TORADOL) injection PRN, Starting on Mon02/19/20 at 0835, Until Mon02/19/20 at 0858, Anesthesia Intra-op, Routine Given 02/19/2020 8:35 AM EDT 30 mg lactated ringers infusion 1,000 mL, at 100 mL/hr, Intravenous, CONTINUOUS, Starting on Mon02/19/20 at 0730, Until Mon02/19/20 at 0944, Day of Surgery (Day of Procedure) New Bag 02/19/2020 8:21 AM EDT lidocaine (PF) (XYLOCAINE) 100 mg/5 mL (2 %) injection PRN, Starting on Mon02/19/20 at 0825, Until Mon02/19/20 at 0858, Anesthesia Intra-op, Routine Given 02/19/2020 8:25 AM EDT 20 mg midazolam (PF) (VERSED) multi-dose injection PRN, Starting on Mon02/19/20 at 0821, Until Mon02/19/20 at 0858, Anesthesia Intra-op, Routine Given 02/19/2020 8:21 AM EDT 2 mg PHENYLephrine in NS (PF) (PATSY-SYNEPHRINE) 0.8 mg/10 mL (80 mcg/mL) multi-dose injection Syrg PRN, Starting on Mon02/19/20 at 0845, Until Mon02/19/20 at 0858, Anesthesia Intra-op, Routine Given 02/19/2020 8:50 AM EDT 80 mcg Given 02/19/2020 8:45 AM EDT 80 mcg propofol (DIPRIVAN) 10 mg/mL bolus injection (Anesthesia) PRN, Starting on Mon02/19/20 at 0826, Until Mon02/19/20 at 08, Anesthesia Intra-op Given 02/19/2020 8:28 AM EDT 20 mg Given 02/19/2020 8:26 AM EDT 50 mg propofol (DIPRIVAN) infusion CONTINUOUS PRN, Starting on Mon02/19/20 at 0825, Until Mon02/19/20 at 08, Anesthesia Intra-op, Routine New Bag 02/19/2020 8:25 AM EDT 100 mcg/kg/min 47.6 mL/hr documented in this encounter Care Teams Gut Sorter Relationship Specialty Start Date End Date None None PCP - General 02/13/20 01/24/21 documented as of this encounter
--- OUTSIDE RECORDS SUMMARY | 2024-04-29 13:14 | XMS_ITS | Encounter Summary ---
[place] [address] Care Team Providers Care Aviation Operations Specialist Name Role Phone Pattie Acosta Primary Care Provider [phone]- [phone] Encounter Details Date Type Department Care Team (Late st Contact Info) Description 08/18/2015 Telephone [place] [phone] Scar Bright Social History Tobacco Use Types Packs/Day Years [...] encounter Miscellaneous Notes * Telephone Encounter - Scar Bright - 08/18/2015 11:32 AM EST Surgery 08/30 documented in this encounter Plan of Treatment Upcoming Encounters Date Type Department Care Team (Late st Contact Info) Description 10/18/2024 4:30 PM EDT Office Visit Dermatology at [facility] [address] [place] [address] Gary Kasper MD [address] [facility] [place] [address] documented as of this encounter Visit Diagnoses Not on filedocumented in this encounter Care Teams Aviation Operations Specialist Relationship Specialty Start Date End Date Pattie Acosta PA [address] [place] [address] PCP - General Family Medicine 06/04/15 02/04/20 documented as of this encounter
--- OUTSIDE RECORDS SUMMARY | 2024-04-29 13:14 | XMS_ITS | Encounter Summary ---
Author Organization [facility] [place] [address] Care Team Providers Care Internet Marketing Strategist Name Role Phone Pattie Acosta Primary Care Provider [phone]- [phone] Encounter Details Date Type Department Care Team (Late st Contact Info) Description 09/23/2009 Orders Only Dermatology at [place] [address] [place] [phone] Stas De Dios MD [address] [facility] [place] [address] Social History Tobacco Use Types Packs/Day Years [...] 4:30 PM EDT Office Visit Dermatology at [facility] [address] [place] [address] Gary Kasper MD [address] [facility] [place] [address] documented as of this encounter Procedures Procedure Name Priority Date/Time Associated Diagnosis Comments SURGICAL PATHOLOGY REPORT Routine 09/23/2009 8:05 PM EDT documented in this encounter Results * Surgical Pathology Report (09/23/2009 8:05 PM EDT) Surgical Pathology Report [id number] ? Location: [facility] The signing pathologist has (i) examined the relevant preparation(s) for the specimen(s) and (ii) rendered or confirmed the diagnosis(es). . ?Pathology Surgical Pathology Final Report Clinical Information Specimen Submitted: A - Central upper back, shave. Clinical History: 1.5-cm atypical pigmented patch Clinical Diagnosis: R/O MM Report to: Stas De Dios MD, [facility] [place], [place] ??[address] Gross Description Labeled/Fixative: ? Central upper back, formalin. Qty/Size/Weight: ?Single shave, 1.8 x 1.4 x 0.1 cm. Tissue Description: ?? Hawley skin with a 1.5-cm, mottled brown ?plaque. Sections/Processin g: ??The specimen is inked black and serially ?sectioned. ??(T2) ??vms/SNS Microscopic Description Slides reviewed, microscopic description not recorded. 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 09/29/09 VMS 09/29/09 Verified by: ? Peng BACK, Beatriz Durant ?Dermatopathologi st ?(Electronic Signature) The attending pathologist whose signature appears on this report has reviewed all diagnostic slides and has edited the gross and/or microscopic portion of the report in rendering the final pathologic diagnosis. Comment This is a difficult lesion, but the broad size and poor circumscription of the atypical lentiginous junctional component are suspicious for melanoma in situ evolving in a nevus. ??There is maturation of the dermal component. ??The atypical junctional melanocytic proliferation involves the peripheral margins, and re- excision is recommended. Drs. Lemon and Live also examined the case and concur with the interpretation. CIARA MARKBRANDON 09/23/2009 8:05 PM EDT Stas De Dios MD PATHOLOGY/CYTOLOGY O RDERABLES CIARA NYE documented in this encounter Visit Diagnoses Not on filedocumented in this encounter Care Teams Internet Marketing Strategist Relationship Specialty Start Date End Date Pattie Acosta PA [address] [place] [address] PCP - General Family Medicine 01/25/21 documented as of this encounter
--- OUTSIDE RECORDS SUMMARY | 2024-04-29 13:14 | XMS_ITS | Encounter Summary ---
Author Organization [facility] [place] [address] Care Team Providers Care Lot Associate Name Role Phone Pattie Acosta Primary Care Provider [phone]- [phone] Encounter Details Date Type Department Care Team (Late st Contact Info) Description 06/29/2015 Orders [place] [phone] Kaylene Strickland MD [facility] [place] [address] Social History Tobacco Use Types Packs/Day Years [...] as of this encounter Progress Notes * Kaylene Strickland MD - 06/29/2015 2:13 PM EST Images from the original note were not included. PRE-PROCEDURE INTERVENTIONAL NEURORADIOLOGY NOTE: Referring Physician: No ref. provider found PCP: NELSON MCCOLLUM Planned Procedure (include side and site): IR US left neck level 2 a lymph node biopsy Procedure Indication: enlarged left neck lymph node Presenting Diagnosis/ Complaint: Ed Carrasco is a 60 y.o. male with 11 month history of enlarged left lymph node level 2 a. Past Medical/Surgical History Patient Active Problem List Diagnosis Code ??? Atypical moles D23.9 ??? Rosacea L71.9 ??? History of atypical nevus Z87.2 ??? Acne rosacea L71.9 ??? Neck mass R22.1 No past medical history on file. Past Surgical History Procedure Laterality Date ??? Colon surgery ??? Hernia repair Medications: Current Outpatient Prescriptions on File Prior to Visit Medication Sig Dispense Refill ??? multivitamin (THERAGRAN) tablet Take 1 tablet by mouth daily. No current facility-administered medications on file prior to visit. Allergies: Percocet and Sulfa (sulfonamide antibiotics) Social History and Habits: History Social History ??? Marital Status: Single [...] ??? Not on file Social History Narrative Significant Family History: Family History Problem Relation Age of Onset ??? Heart Disease Mother ??? Diabetes Other Physical Exam: Pending Labs: Prior relevant imaging: Assessment/Plan: Patient Position: Supine Procedure access site: left neck Medications to discontinue (and days): [none] Labs: [obtain per protocol] Sedation: [no] documented in this encounter Plan of Treatment Upcoming Encounters Date Type Department Care Team (Late st Contact Info) Description 10/18/2024 4:30 PM EDT Office Visit Dermatology at [facility] [address] [place] [address] Gary Kasper MD [address] [place] [address] documented as of this encounter Visit Diagnoses Not on filedocumented in this encounter Care Teams Lot Associate Relationship Specialty Start Date End Date Pattie Acosta PA [address] [place] [address] PCP - General Family Medicine 06/04/15 02/04/20 documented as of this encounter
--- OUTSIDE RECORDS SUMMARY | 2024-04-29 13:14 | XMS_ITS | Encounter Summary ---
Author Organization [facility] [place] [address] Care Team Providers Care Legal Records Clerk Name Role Phone Hany Foote MD Primary Care Provider [phone] Encounter Details Date Type Department Care Team (Late st Contact Info) Description 06/01/2015 - 06/01/2015 11:59 PM [email or web address] Hospital Encounter Radiology Library at [facility] [place] [address] [facility] Dis[facility] Disposition: Home Social History Tobacco Use Types Packs/Day Years Used Date Smoking Tobacco: Passive Smo ke Exposure - Never Smoker Sex and Gender Information Value Date Recorded Sex Assigned at Not on file Gender Identity Not on file Sexual Orientation Not on file documented as of this encounter Medications at Time of Discharge Medication Sig Dispensed Refills Start Date End Date multivitamin (THERAGRAN) tablet Take 1 tablet by mouth daily. cyanocobalamin, vitamin B-12, 250 mcg tablet Take 250 mcg by mouth daily. 2015 documented as of this encounter Plan of Treatment Upcoming Encounters Date Type Department Care Team (Late st Contact Info) Description 10/18/2024 4:30 PM EDT Office Visit Dermatology at [facility] [address] [place] [phone] Gary Kasper MD [address] [place] [address] documented as of this encounter Procedures Procedure Name Priority Date/Time Associated Diagnosis Comments FILM LIBRARY STORAGE ONLY CT HEAD Routine 06/01/2015 12:00 AM EST Pain documented in this encounter Results * Film Library- Storage Only CT Head (06/01/2015 12:00 AM EST) Narrative [facility] - 06/09/2015 3:05 PM EST See PACS for result report. Dr Boucher [facility] FILM LIBRARY ORD ERABLES [place], [place] documented in this encounter Visit Diagnoses Diagnosis Pain Generalized pain documented in this encounter Care Teams Legal Records Clerk Relationship Specialty Start Date End Date Hany Foote MD [address] [place] [address] PCP - General 05/11/10 06/03/15 documented as of this encounter
--- OUTSIDE RECORDS SUMMARY | 2024-04-29 13:14 | XMS_ITS | Encounter Summary ---
[place] [address] Care Team Providers Care Pan Devulcanizer Helper Name Role Phone Hany Foote MD Primary Care Provider Reason for Visit * Reason Comments Skin Check Encounter Details Date Type Department Care Team (Late st Contact Info) Description 04/25/2011 9:30 AM EST Office Visit Dermatology [address] [place] [address] [address] [place], [place] [address] Stas De Dios MD [address] [facility] A DERMATOLOGY [place], [place] [phone] Atypical nevus (Primary Dx); Rosacea Social History Tobacco Use Types Packs/Day Years Used Date Smoking Tobacco: Never Assessed Sex and Gender Information Value Date Recorded Sex Assigned at Not on file Gender Identity Not on file Sexual Orientation Not on file documented as of this encounter Progress Notes * Stas De Dios MD - 04/25/2011 9:54 AM EST Problems: 1. 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 2. History of facial Rosacea/seborrheic dermatitis not responsive to MetroGel or Sulfacet-R. Sajan follows up and has been doing well. However now his Rosacea has been a problem on the right cheek and a little bit on the bridge of his nose. It has not responded to 1% Hydrocortisone Cream. He has never tried MetroGel or Sulfacet-R for this location, only having used it on his forehead and having experienced a worsening of the condition at the forehead application site. Physical examination today reveals Rosacea erythematous papules and a few pustules on the right cheek. He has a benign examination of the head, neck, chest, back, hands, arms, forearms, thighs and calves. The surgical scar is well healed on the upper central back just left of midline. He continues to have a 3mm macule just to the left of the midline of the scar. Examination is otherwise benign. 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 a. Benign examination today. b. Patient reassured. c. RTC in one year for repeat check. May consider p.r.n. follow ups thereafter. Rosacea/seborrheic dermatitis of scalp/face. a. Try again Metronidazole 0.75% Gel applying BID to right cheek. b. May continue sparingly the use of 1% Hydrocortisone Cream. c. Could consider Tretinoin Cream of Azelaic Acid as well. Cc: Alfa Echeverria MC, PAAngelC RTC REMINDER: One Year documented in this encounter Plan of Treatment Upcoming Encounters Date Type Department Care Team (Late st Contact Info) Description 10/18/2024 4:30 PM EDT Office Visit Dermatology at [facility] [address] [place] [address] Gary Kasper MD [address] [facility] [place] [address] documented as of this encounter Visit Diagnoses Diagnosis Atypical nevus- Primary Benign neoplasm of skin, site unspecified Rosacea documented in this encounter Care Teams Pan Devulcanizer Helper Relationship Specialty Start Date End Date Hany Foote MD [address] [place] [address] PCP - General 05/11/10 06/03/15 documented as of this encounter
--- OUTSIDE RECORDS SUMMARY | 2024-04-29 13:14 | XMS_ITS | Encounter Summary ---
[place] [address] Care Team Providers Care Renal Medicine Specialist Name Role Phone Pattie Acosta Primary Care Provider [phone]- [phone] Reason for Visit * Diagnostic Test (Routine) - Closed Specialty Diagnoses / Procedures Referred By Linda hwang Referred To Contact Radiology Diagnoses Neck mass Procedures PET/CT STANDARD (Skull base to Mid-thigh) Nadeem Pavon MD [facility] [place] [address] [place] [address] Referral ID Status Reason Start Date Expiration Date V isits Requested Visits Authorized [id number] Closed Specialty Service Requested 08/18/2015 10/16/2015 2 2 Encounter Details Date Type Department Care Team (Latest Contact Info) Description 08/18/2015 8:14 AM EST - 08/18/2015 11:59 PM EST Hospital Encounter [place] [address] Nadeem Pavon MD [facility] [place] [address] Discharge Disposition: Home Social History Tobacco Use [...] tablet Take 1 tablet by mouth daily. oxyCODONE (ROXICODONE) 5 mg/5 mL Solution Take 5 mLs by mouth every 4 hours as needed for Pain. 100 mL 0 08/31/2015 09/15/2015 documented as of this encounter Plan of Treatment Upcoming Encounters Date Type Department Care Team (Late st Contact Info) Description 10/18/2024 4:30 PM EDT Office Visit Dermatology at [facility] [address] [place] [address] Gary Kasper MD [address] [facility] [place] [address] documented as of this encounter Procedures Procedure Name Priority Date/Time Associated Diagnosis Comments NM PET CT SKULL BASE TO MID-THIGH ([facility]) Routine 08/18/2015 9:53 AM EST Neck mass POCT GLUCOSE Routine 08/18/2015 8:20 AM EST documented in this encounter Results * POCT Glucose (08/18/2015 8:20 AM EST) Glucose, POC 89 65 - 199 mg/dL [facility] Comment: Supplemental ranges: <140 mg/dL before meals <180 mg/dL all other times of the day Blood specimen (specimen) 08/18/2015 8:20 AM EST 08/18/2015 8:20 AM EST Nadeem Pavon MD POINT OF CARE TEST ORDERABLES [facility] [place] [address] documented in this encounter Visit Diagnoses Not on filedocumented in this encounter Care Teams Renal Medicine Specialist Relationship Specialty Start Date End Date Pattie Acosta PA [address] [place] [address] PCP - General Family Medicine 06/04/15 02/04/20 documented as of this encounter
--- OUTSIDE RECORDS SUMMARY | 2024-04-29 13:14 | XMS_ITS | Encounter Summary ---
[place] [address] Care Team Providers Care Factory Hand Name Role Phone Pattie Acosta Primary Care Provider [phone]- [phone] Reason for Referral * Diagnostic Test (Routine) - Closed Specialty Diagnoses / Procedures Referred By Contines t Referred To Contact Radiology Diagnoses Neck mass Procedures IR Thyroid FNA Biopsy Nadeem Pavon MD [facility] [place] [address] [place] [address] Referral ID Status Reason Start Date Expiration Date V isits Requested Visits Authorized [id number] Closed Specialty Service Requested 07/12/2015 07/11/2016 1 1 Reason for Visit * Diagnostic Test (Routine) - Closed Specialty Diagnoses / Procedures Referred By Linda hwang Referred To Contact Radiology Diagnoses Neck mass Procedures IR Thyroid FNA Biopsy Nadeem Pavon MD [facility] [address] [place] [address] [facility] [place] [address] Referral ID Status Reason Start Date Expiration Date V isits Requested Visits Authorized [id number] Closed Specialty Service Requested 07/12/2015 07/11/2016 1 1 Encounter Details Date Type Department Care Team (Latest Contact Info) Description 07/15/2015 1:32 PM EST - 07/15/2015 11:59 PM EST Hospital [place] [address] Nadeem Pavon MD [facility] [place] [address] Neck mass Discharge Disposition: Home Social History Tobacco Use [...] Sign Reading Time Taken Comments Blood Pressure 130/85 07/15/2015 4:30 PM EST Pulse 71 07/15/2015 4:30 PM EST Temperature 36.7 ??C (98 ??F) 07/15/2015 3:45 PM EST Respiratory Rate 20 07/15/2015 4:30 PM EST Oxygen Saturation 94% 07/15/2015 4:30 PM EST Inhaled Oxygen Concentration - - Weight - - Height - - Body Mass Index - - documented in this encounter Discharge Instructions * Discharge Instructions* Lulú Tellez RN - 07/15/2015 3:56 PM EST [facility] DEPARTMENT OF RADIOLOGY Biopsy Discharge Instructions Thyroid, lymph node or soft tissue: call your doctor immediately if you develop increased pain swelling or heavy bleeding at the biopsy site, or difficulty swallowing . Activity and Diet: Go home and rest quietly for the remainder of the day. You may resume your normal activities tomorrow. Resume your usual diet after the procedure. When to call your healthcare provider: If you see any redness, swelling or drainage at the biopsy site. If you develop shaking chills. If you have a fever greater than or equal to101 degrees Fahrenheit. If you develop pain around the biopsy site. Bandage: Check the dressing/bandaid throughout the day for an increase in drainage. Keep the biopsysite dry for 24 hours. Replace the bandaid as needed. You may shower 24 hours after the biopsy. Medication: DO NOT take aspirin-containing products, ibuprofen, or blood- thinning medication for the next 24 hours unless your doctor says you may do so. Generally you may use acetaminophen as neededfor discomfort unless you have liver disease and are instructed not to take acetaminophen. Biopsy Results: The results of your biopsy should be available within 5 business days and will be reported to you by your primary special needs caregiver or the clinician who ordered the biopsy. Please do notcall us for results as we will not have them. If you have not been contacted by your clinician within 5 business days you should call that office for further information. When to call the Radiology Department: Please call with any questions or concerns. If it is during regular office hours, please call [phone]. If it is after regular office hours, or on weekends or holidays, please call [phone] and ask to speak to the Clerical Receptionist acetone recovery worker. Revised 07/03/15 documented in this encounter Medications at Time of Discharge Medication Sig Dispensed Refills Start Date End Date multivitamin (THERAGRAN) tablet Take 1 tablet by mouth daily. documented as of this encounter Progress Notes * Kaylene Strickland MD - 07/15/2015 1:59 PM EST VIR PRE-PROCEDURE VIR NOTE ADDENDUM Name: Ed Carrasco Date of : 1955 Procedure: IR US left neck lymph node fna The patient's history and physical exam have been reviewed and completed. There has been no interval change from that of the pre-operative history and physical exam done within the last 30 days. Physical Examination: Chest: clear to auscultation, no wheezes, rales or rhonchi, symmetric air entry Heart: normal rate, regular rhythm, normal S1, S2, no murmurs, rubs, clicks or gallops ASA 3 - Patient with moderate systemic disease with functional limitations Mallampati III (soft palate, base of uvula visible) The planned procedure, its benefits/risks and alternatives were discussed with the patient and consent was given. Kaylene Strickland MD documented in this encounter Plan of Treatment Upcoming Encounters Date Type Department Care Team (Late st Contact Info) Description 10/18/2024 4:30 PM EDT Office Visit Dermatology at [facility] [address] [place] [address] Gary Kasper MD [address] [facility] [place] [address] documented as of this encounter Procedures Procedure Name Priority Date/Time Associated Diagnosis Comments NON-GIFT SHOP CLERK FINAL REPORT Routine 07/15/2015 4:27 PM EST IR FNA THYROID NODULE Routine 07/15/2015 3:45 PM EST Neck mass CYTOPATHOLOGY NON-GYNECOLOGICAL Routine 07/15/2015 2:23 PM EST documented in this encounter Results * Non-Licensed Pesticide Applicator Final Report (07/15/2015 4:27 PM EST) Diagnosis Discussion [id number] ?Location: 3 The signing pathologist has (i) examined the relevant preparation(s) for the specimen(s) and (ii) rendered or confirmed the diagnosis(es). . ? Non-Licensed Pesticide Applicator Final DIAGNOSIS See Comment 07/17/15 ?Screened by: ? SLA ?Rescreened by: ?? XL,XL 07/17/15 ?Verified by: ? Jamshid BACK, Marquita ? Pathologist ? (Electronic Signature) DISCUSSION Neck: left medial mass (US-guided FNA - assisted)- Abundant anucleate squamous epithelial cells, keratin debris, generally bland squamous epithelial cells, and rare dyskeratotic squamous cells present. Cell block shows similar features. Additional levels examined. Differential diagnosis is wide and includes: branchial cleft cyst, thyroglossal duct cyst, epidermal inclusion cyst, etc. However, the possibility of squamous cell neoplasm cannot be entirely excluded. Clinical and radiologic correlation is required. Dr. Ken has kindly reviewed the case and concurs with the above diagnosis. CLINICAL INFORMATION Specimen Source: ?? Neck: left medial mass (US-guided FNA - assisted) Pertinent Clinical Data and Significant Therapy: ?? 11 mo. hx of left upper neck mass. FNAB for histology. Clinical Impression: ?? (not provided) Pertinent Radiologic Findings: ?? (not provided) Gross Description: ?? Received in CytoLyt approximately 10 mL total volume of cloudy, pink fluid. ?? Total Preparation: Liquid Based Prep 1; Diff-Quik 5; Pap Stain 4. Fine Needle Aspiration Intraoperative Consultation: Evaluation Episode #1 (5 slides): Adequate for final diagnosis. Deferred. Mature squamous cells, anucleated cells and debris present. Intraoperative Consultation by: [place] Mott MD (fellow) and Marquita Breen MD. I have personally examined the cytologic slides. My interpretation is as stated. . CLINICAL INFORMATION Note: Intraoperative Consultation results are preliminary assessments of adequacy and diagnosis. See final diagnostic comments for completed interpretation. 07/17/2015 2:03 PM EST [facility] NECK STRUCTURE / Unknown 07/15/2015 4:27 PM EST 07/15/2015 4:27 PM EST Nadeem Pavon MD PATHOLOGY/CYTOLOGY ORDERABLES [facility] [place] [address] * IR Thyroid FNA Biopsy (07/15/2015 3:45 PM EST) Anatomical Region Laterality Modality Neck X-Ray Angiograph y Impressions 07/15/2015 6:06 PM EST IMPRESSION: Technically successful ultrasound guided FNA of a left level II hypoechoic mass. I, Dr. Kathleen Yuan, was present for the entire procedure. I have personally reviewed the image(s) and the residents interpretation and agree with the findings, Kathleen Yuan at 07/15/2015 6:06 PM Narrative 07/15/2015 6:06 PM EST EXAMINATION: IR THYROID FNA BIOPSY CLINICAL HISTORY: Patient with 11 mo hx of left upper neck mass. Please image with FNAB for histology, Exam/Procedure requested: FNAB TECHNIQUE: Following discussion of the risks and benefits of the procedure, informed written and verbal consent was obtained. The patient was positioned supine and targeted ultrasound of the left level II lymph node was performed for assessment of lesion and planning approach. ??An official time out was performed to verify correct patient, side and procedure. ??The skin overlying the left upper neck was prepped and draped using maximal sterile technique. A small amount of 1% lidocaine was used for local anesthesia of the entry site at the skin and along the planned tract. Under ultrasound guidance, fine-needle aspiration of the lesion was performed with 23-gauge needle which was handed off to pathology. This was repeated for a total of 8 aspirations. ??The pathologist deemed the samples adequate. The patient tolerated the procedure well. The patient was monitored in the recovery room post-procedure and there were no immediate complications. COMPARISON: CT neck dated 06/01/2015. FINDINGS: 1. ??Limited periprocedural ultrasound showed a 0.9 x 2.0 x 3.0 cm left level II hypoechoic mass corresponding to the findings on prior CT neck. 2. ??No postprocedural fluid collection to suggest hematoma. Procedure Note Kathleen Yuan MD - 07/15/2015 EXAMINATION: IR THYROID FNA BIOPSY CLINICAL HISTORY: Patient with 11 mo hx of left upper neck mass. Pleaseimage with FNAB for histology, Exam/Procedure requested: FNAB TECHNIQUE: Following discussion of the risks and benefits of theprocedure, informed written and verbal consent was obtained. The patient waspositioned supine and targeted ultrasound of the left level II lymph node wasperformed for assessment of lesion and planning approach. An official time out wasperformed to verify correct patient, side and procedure. The skin overlying theleft upper neck was prepped and draped using maximal sterile technique. A small amount of 1% lidocaine was used for local anesthesia of the entrysite at the skin and along the planned tract. Under ultrasound guidance,fine-needle aspiration of the lesion was performed with 23-gauge needle which washanded off to pathology. This was repeated for a total of 8 aspirations. Thepathologist deemed the samples adequate. The patient tolerated the procedure well. The patient was monitored in the recovery room post-procedure and therewere no immediate complications. COMPARISON: CT neck dated 06/01/2015. FINDINGS: 1. Limited periprocedural ultrasound showed a 0.9 x 2.0 x 3.0 cm leftlevel II hypoechoic mass corresponding to the findings on prior CT neck. 2. No postprocedural fluid collection to suggest hematoma. IMPRESSION IMPRESSION: Technically successful ultrasound guided FNA of a left level II hypoechoicmass. I, Dr. Kathleen Yuan, was present for the entire procedure. I have personally reviewed the image(s) and the residents interpretationand agree with the findings, Kathleen Yuan at 07/15/2015 6:06 PM Nadeem Pavon MD [facility] ORDERABLES * Cytopathology Non-Gynecological (07/15/2015 2:23 PM EST) AP Specimen 07/15/2015 2:23 PM EST 07/15/2015 2:23 PM EST Narrative [facility] NYE - 07/15/2015 2:23 PM EST Specimen requisition ordered. ??Separate Pathology report to follow Nadeem Pavon MD PATHOLOGY/CYTOLOGY ORDERABLES [facility] documented in this encounter Visit Diagnoses Diagnosis Neck mass Swelling, mass, or lump in head and neck documented in this encounter Care Teams Factory Hand Relationship Specialty Start Date End Date Pattie Acosta PA [address] [place] [address] PCP - General Family Medicine 06/04/15 02/04/20 documented as of this encounter
--- OUTSIDE RECORDS SUMMARY | 2024-04-29 13:14 | XMS_ITS | Encounter Summary ---
[place] [address] Care Team Providers Care Java Web Application Developer Name Role Phone Pattie Acosta Primary Care Provider [phone]- [phone] Reason for Referral * Diagnostic Test (Routine) - Closed Specialty Diagnoses / Procedures Referred By Linda hwang Referred To Contact Radiology Diagnoses Neck mass Procedures PET/CT STANDARD (Skull base to Mid-thigh) Nadeem Pavon MD [facility] [place] [address] [place] [address] Referral ID Status Reason Start Date Expiration Date V isits Requested Visits Authorized [id number] Closed Specialty Service Requested 08/18/2015 10/16/2015 2 2 Reason for Visit * Reason Comments Follow-up f/up after FNA Encounter Details Date Type Department Care Team (Late st Contact Info) Description 07/28/2015 11:00 AM EST Office [place] [address] Nadeem Pavon MD [facility] [place] [address] Neck mass Social History Tobacco Use Types [...] Sign Reading Time Taken Comments Blood Pressure 116/74 07/28/2015 10:50 AM EST Pulse 68 07/28/2015 10:50 AM EST Temperature - - Respiratory Rate - - Oxygen Saturation - - Inhaled Oxygen Concentration - - Weight 79.4 kg (175 lb) 07/28/2015 10:50 AM EST Height 175.3 cm (5' 9) 07/28/2015 10:50 AM EST Body Mass Index 25.84 07/28/2015 10:50 AM EST documented in this encounter Progress Notes * Nadeem Pavon MD - 07/28/2015 11:48 AM EST Images from the original note were not included. Subjective: Patient ID: Ed Carrasco is a 60 y.o. male. HPI Ed Carrasco is seen in follow up of his nearly 1 year hx of a left neck mass He reported noting a mass in the [...] NO pain. Voice returns on its own. Former 20 pk year smoker until 12 years ago, non drinker. No use of chewing tobacco. He was referred for FNA of this mass which was soft and mobile No past medical history on file. Past Surgical History Procedure Laterality Date ??? Colon surgery ??? Hernia repair Current outpatient prescriptions: ??? multivitamin (THERAGRAN) tablet, [...] on file Social History Narrative [employer] in the last 26 years. Review of [...] content normal. Nursing note and vitals reviewed. FNA biopsy: Abundant anucleate squamous epithelial cells, keratin debris, generally bland squamous ??epithelial cells, and rare dyskeratotic squamous cells present. Cell block shows similar features. Additional levels examined. Differential diagnosis is wide and includes: branchial cleft cyst, thyroglossal duct cyst, ??epidermal inclusion cyst, etc. However, the possibility of squamous cell neoplasm cannot ??be entirely excluded. Clinical and radiologic correlation is required. Assessment and Plan: Patient with 12 mo hx of left neck mass which has not changed. Mass is separate from the parotid tail and may represent a lymph node. There is nothing specific I still could identify in the physical exam except for the mild asymmetry. Recommended we plan PET-CT with f/u visit. Discussed reasons for PET-CT. We will need to likely perform endoscopy and biopsies with excision of this mass afterwards. documented in this encounter Plan of Treatment Upcoming Encounters Date Type Department Care Team (Late st Contact Info) Description 10/18/2024 4:30 PM EDT Office Visit Dermatology at [facility] [address] [place] [address] Gary Kasper MD [address] [facility] [place] [address] documented as of this encounter Results * PET/CT STANDARD (Skull base to Mid-thigh) (08/18/2015 9:53 AM EST) Anatomical Region Laterality Modality Nuclear Medicine Impressions 08/18/2015 11:29 AM EST IMPRESSION: 1. ??Non-FDG avid CT visualized well-circumscribed 2 cm cystic lesion in the left level 2 region; favor that this represents a benign etiology such as brachial cleft cyst or epithelial inclusion cyst. ?? A cystic neoplasm is not excluded. 2. ??Multiple sub-cm mild to moderately FDG avid lymph nodes in the bilateral level 2 regions are nonspecific. Favor that these represent benign reactive nodes. Thank you for referring this patient to [facility]. I have personally reviewed the image(s) and the residents interpretation and agree with the findings, Luis Ugarte at 08/18/2015 11:29 AM Narrative 08/18/2015 11:29 AM EST EXAMINATION: PET/CT STANDARD (SKULL BASE TO MID THIGH) CLINICAL HISTORY: nearly 1 year hx of left upper neck mass TECHNIQUE: Procedure: Following IV injection of 33-rjggtw-3-deoxyglucose (FDG) a standard uptake of approximately 60 minutes, a noncontrast CT scan followed by a PET scan were acquired from the top of head to mid thighs. The noncontrast CT was used for anatomic localization and photon attenuation correction of the PET scan Blood glucose level: 89 (mg/dL) FDG dose: 11.9 mCi COMPARISON: CT neck 06/01/2015, intraprocedural ultrasound 07/15/2015. FINDINGS: HEAD/NECK: The CT visualized approximately 2 cm well-circumscribed hypodense cystic mass in the left level 2 region posterior to the submandibular gland has no visible FDG uptake. There are multiple small sub-cm mild to moderately FDG avid bilateral level two lymph nodes which are nonspecific. CHEST: Normal activity in all soft tissue regions. No pulmonary nodules or opacities. Limited noncontrast evaluation of the mediastinum is unremarkable. ABDOMEN/PELVIS: Normal activity in all soft tissue regions. SKELETON/EXTREMITIES: Normal activity in all regions of the axial and ??visualized appendicular skeleton. Procedure Note Luis Ugarte MD - 08/18/2015 EXAMINATION: PET/CT STANDARD (SKULL BASE TO MID THIGH) CLINICAL HISTORY: nearly 1 year hx of left upper neck mass TECHNIQUE: Procedure: Following IV injection of 75-oyrwdc-7-deoxyglucose(FDG) a standard uptake of approximately 60 minutes, a noncontrast CT scanfollowed by a PET scan were acquired from the top of head to mid thighs. The noncontrastCT was used for anatomic localization and photon attenuation correction ofthe PET scan Blood glucose level: 89 (mg/dL) FDG dose: 11.9 mCi COMPARISON: CT neck 06/01/2015, intraprocedural ultrasound 07/15/2015. FINDINGS: HEAD/NECK: The CT visualized approximately 2 cm well-circumscribed hypodense cysticmass in the left level 2 region posterior to the submandibular gland has novisible FDG uptake. There are multiple small sub-cm mild to moderately FDG avid bilaterallevel two lymph nodes which are nonspecific. CHEST: Normal activity in all soft tissue regions. No pulmonary nodules oropacities. Limited noncontrast evaluation of the mediastinum is unremarkable. ABDOMEN/PELVIS: Normal activity in all soft tissue regions. SKELETON/EXTREMITIES: Normal activity in all regions of the axial and visualized appendicular skeleton. IMPRESSION IMPRESSION: 1. Non-FDG avid CT visualized well-circumscribed 2 cm cystic lesion inthe left level 2 region; favor that this represents a benign etiology such asbrachial cleft cyst or epithelial inclusion cyst. A cystic neoplasm is notexcluded. 2. Multiple sub-cm mild to moderately FDG avid lymph nodes in thebilateral level 2 regions are nonspecific. Favor that these represent benignreactive nodes. Thank you for referring this patient to [facility]. I have personally reviewed the image(s) and the residents interpretationand agree with the findings, Luis Ugarte at 08/18/2015 11:29 AM Nadeem Pavon MD [facility] PET ORDERABLES documented in this encounter Visit Diagnoses Diagnosis Neck mass Swelling, mass, or lump in head and neck Neck mass Swelling, mass, or lump in head and neck documented in this encounter Care Teams Java Web Application Developer Relationship Specialty Start Date End Date Pattie Acosta PA [address] [place] [address] PCP - General Family Medicine 06/04/15 02/04/20 documented as of this encounter
--- OUTSIDE RECORDS SUMMARY | 2024-04-29 13:14 | XMS_ITS | Encounter Summary ---
Author Organization [facility] [place] [address] Care Team Providers Care Showcase Trimmer Name Role Phone Pattie Acosta Primary Care Provider [phone] Reason for Visit * Auth/Cert - Closed Specialty Diagnoses / Procedures Referred By Linda hwang Referred To Contact Diagnoses neck mass Procedures PRO EXCISION BRANC CLFT CYST, DEEP PRO LARYNGOSCOPY, DIRECT, DX, OP MICROSCOP EXCISION BRANCHIAL CLEFT CYST, VESTIGE OR FISTULA, DEEP LARYNGOSCOPY, WITH MICROSCOPE Referral ID Status Reason Start Date Expiration Date Visits Re quested Visits Authorized [id number] Closed 1 1 Encounter Details Date Type Department Care Team (Latest Contact Info) Description 08/31/2015 8:01 AM EDT - 08/31/2015 2:11 PM EDT Hospital En[place] [id number] Kay Pavon MD [facility] [place] [address] Discharge Disposition: Home Social History Tobacco Use [...] Sign Reading Time Taken Comments Blood Pressure 109/66 08/31/2015 12:33 PM EDT Pulse 64 08/31/2015 12:33 PM EDT Temperature 36.5 ??C (97.7 ??F) 08/31/2015 8:13 AM ED T Respiratory Rate 16 08/31/2015 12:33 PM EDT Oxygen Saturation 100% 08/31/2015 2:00 PM EDT Inhaled Oxygen Concentration - - Weight 80.7 kg (178 lb) 08/31/2015 8:13 AM EDT Height 175.3 cm (5' 9.02) 08/31/2015 8:13 AM ED T Body Mass Index 26.27 08/31/2015 8:13 AM EDT documented in this encounter Discharge Instructions * Discharge Instructions* Jame Aguirre RN - 08/31/2015 12:35 PM EDT POST ANESTHESIA INSTRUCTIONS Go home, rest, use [...] soreness, which usually goes away in 12-24 hours. * Patient Instructions* Luis Saldivar MD - 08/31/2015 12:28 PM EDT Instructions Given to Patient at Discharge: Pain medication: or pain, use acetaminophen (Tylenol) and/or ibuprofen (Motrin, Advil) as needed. For more severe pain, take the prescribed pain medication. If the prescribed pain medication containsacetaminophen, do not take additional acetaminophen (Tylenol) as this can cause liver damage. Do not exceed 4g acetaminophen per day. As your pain improves, wean yourself off of the prescribed pain medication. Do not drive or operate machinery while taking the prescribed pain medication. William/Sutures: Your sutures will absorb. Incision Care: Clean the incision with a damp gauze or washcloth to gently remove any crusts or scabs. Dry crusts and scabs will cause more scarring and make it hard to remove the sutures, if they remain. For stubborn scabs that won't come off, use hydrogen peroxide mixed 50:50 with water. Then drythe incision and apply bacitracin ointment. Do this twice per day. Diet: Follow this diet until your follow up appointment: regular Contact: -You can reach the ENT clinic at [phone] for appointment questions. -The ENT triage nurse is available at [phone] -For urgent issues during evenings and weekends the ENT resident security operations manager can be reached through [facility] digital print operator at [phone] documented in this encounter Medications at Time of Discharge Medication Sig Dispensed Refills Start Date End Date multivitamin (THERAGRAN) tablet Take 1 tablet by mouth daily. oxyCODONE (ROXICODONE) 5 mg/5 mL Solution Take 5 mLs by mouth every 4 hours as needed for Pain. 100 mL 0 08/31/2015 09/15/2015 documented as of this encounter H&P Notes * Kay Pavon MD - 08/31/2015 9:08 AM EDT 24 hour update The patient's recent physical exam is reviewed. There are no changes to the physical findings or indications for the procedure.We reviewed again the perioperative course and post-operative instructions, as well as complications. He denies any change in his left neck mass, no new complaints, no referred otalgia. He denies pain Patient has proper understanding and the patient's questions are answered. Kay Pavon MD Otolaryngology-Head and Neck Surgery documented in this encounter Miscellaneous Notes * Brief Op Note - Kay Pavon MD - 08/31/2015 1:19 PM EDT Brief Operative Note Patient Name: Ed Carrasco : [id number] MR#: [id number] Case Date: 08/31/2015 Surgeon: Surgeon(s) and Role: * Kay Pavon MD - Primary * Luis Saldivar MD Preoperative diagnosis: neck mass Postoperative diagnosis: neck mass Procedure(s): EXCISION BRANCHIAL CLEFT CYST, VESTIGE OR FISTULA, DEEP LARYNGOSCOPY, WITH MICROSCOPE Anesthesia: Anesthesia type not filed in the log. Findings: cystic mass left neck with yellowish fluid Complications: none Fluids: see anesth Estimated Blood Loss: 5 mL Drains: Disposition: awakened from anesthesia, extubated and taken to the recovery room in a stable condition, having suffered no apparent untoward event. Condition: doing well without problems Infection Bundle used? No Attestation: Case Date: 08/31/2015 I was present and I participated during the entire procedure (does not need to include opening and closing). (Please see the Surgical Encounter Summary for any Implant and Specimen details pertinent to this patient.) * Op Note - Luis Saldivar MD - 08/31/2015 12:30 PM EDT [facility] Operative Note Patient Name: Ed Carrasco : [id number] MR#: [id number] Case Date: 08/31/2015 Surgeon: Surgeon(s) and Role: * Kay Pavon MD - Primary * Luis Saldivar MD Preoperative diagnosis: neck mass Postoperative diagnosis: neck mass Procedure(s): EXCISION BRANCHIAL CLEFT CYST, VESTIGE OR FISTULA, DEEP LARYNGOSCOPY, WITH MICROSCOPE Findings: 3x2 cm cystic mass located in levels II-III of the left neck. Two reactive lymph nodes just superior and lateral to the cystic mass. Anesthesia: Anesthesia type not filed in the log. 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 FNA results were inconclusive. 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 The patient presents for removal andpathologic analysis of the lesion. Procedure Description: The patient was taken to the operating room, placed in the supine position, and general anesthesia was achieved. The patient was easy to mask and was turned 90 degrees for an apneic examination. Using a Dee laryngoscope, the contents of the oral cavity and oropharynx were examined, with no identification of suspicious masses. Next the pharynx, hypopharynx, and larynx were examined. Visualization of the glottis was difficult due to the patient's retrognathia, narrow palate, and anterior glottic placement. The patient was able to be intubated with a 6[facility] Next, the patient was turned an additional 90 degrees from anesthesia. The left neck was marked and prepped in the usual sterile fashion. Six cc of 1% lidocaine with 1:100,000 epinephrine was injected into the incision turner. A 4 cm horizontal incision was made across the skinsuperior to the mid portion of the left SCM. Monopolar cautery was used to dissection down to and separate the platysma. The great auricular nerve was identified and care was taken not to injure it. A combination of blunt dissection along with the harmonic scalpel was used to dissect the anterior border of the SCM. Near the mid SCM the lesion was identified and was slowly dissected out starting from the inferior most aspect. The inferior portion of the cystic mass was attached to the SCM and also to the spinal accessory nerve. Careful dissection with a Schnidt and the Harmonic scalpel was used to elevate the mass off the nerve, ensuring that the nerve was not injured in the process. While peeling the mass off the SCM a small perforation in the cyst mass was created, leading to spillage ofgreen colored mucoid contents. The discharge was suctioned off the field and the perforation was closed with a silk stitch tied in a figure of 8 fashion. Next dissection was carried more superiorly to identify the superior most aspect of the mass. The superior portion was carefully dissected free from the SCM and surrounding soft tissues. Once the mass was removed it was sent for pathology. Two reactive lymph nodes superior to the cystic lesion were identified but felt to be soft and left in place. The wound bed was then irrigated with 500 cc of normal saline and a layer of Surgicel was placed in the defect site. The platysma was then closed with 3-0 vicryl sutures and the skin closed with a 4-0 monocryl in subcuticular fashion. The patient was then returned to anesthesia, allowed to awaken, and taken out of the operating roomin good condition. The patient tolerated the procedure well without complication. Infection Bundle used? no Associated attestation - Kay Pavon MD - 09/01/2015 10:08 PM EDT Attestation: Case Date: 08/31/2015 I was present and I participated during the entire procedure (does not need to include opening and closing). KAY PAVON MD 09/01/2015 documented in this encounter Plan of Treatment Upcoming Encounters Date Type Department Care Team (Late st Contact Info) Description 10/18/2024 4:30 PM EDT Office Visit Dermatology at [facility] [address] [place] [address] Gary Kasper MD [address] [facility] [place] [address] documented as of this encounter Procedures Procedure Name Priority Date/Time Associated Diagnosis Comments CHROMO REPORT ACQUIRED Routine 6 1:35 PM EDT IMMUNOPHENOTYPING FLOW CYTOMETRY (BLOOD) Routine 08/31/2015 11:41 AM EDT SURGICAL PATHOLOGY REPORT Routine 2015 11:41 AM EDT SPECIMEN TO PATHOLOGY Routine 08/31/2015 11:41 AM EDT LARYNGOSCOPY, WITH MICROSCOPE (WRVU 2.57) 08/31/2015 9:37 AM EDT neck mass EXCISION BRANCHIAL CLEFT CYST, VESTIGE OR FISTULA, DEEP (WRVU 7.31) 08/31/2015 9:37 AM EDT neck mass documented in this encounter Results * chromo report acquired (08/31/2015 1:35 PM EDT) Cytogenetics Acquired Report Final Report ? [id number] Specimen Type: Tumor Specimen Condition: Left neck mass Collection Date/Time: 08/31/2015 11:41 Received Date/Time: 08/31/2015 15:25 Indication: Lymphoma ---Results--- Normal karyotype ---Karyotype--- 46,XY[20] ---Preparation-- - Culture Type: 24hr, B-cell mitogen-stimulat ed cultures Days in Culture: 1-3 Banding Method: G-banding Banding Level: 400-450 bands FISH Method: N/A ---Analysis--- Cultures Analyzed: 2 Metaphase Cells Counted: ??20 Metaphase Cells Analyzed: ??20 Metaphase Cells Karyotyped: ??2 ---Interpretatio n--- Cytogenetic analysis of the unstimulated and B-cell mitogen-stimulat ed left neck mass biopsy preparations revealed a normal male karyotype of 46,XY. No clonal abnormalities were observed. ---Comments--- Correlation with clinical presentation and other laboratory testing results is suggested. 09.15.15 (Electronic Signature) Verified By: Kalin BACK, Ph.D., Liming Director, Cytogenetics [facility] 08/31/2015 1:35 PM EDT Kay Pavon MD HEMATOLOGY ORDERABL ES [facility] [place] [address] * Surgical Pathology Report (08/31/2015 11:41 AM EDT) Final Diagnosis [id number] ? Location: The signing pathologist has (i) examined the relevant preparation(s) for the specimen(s) and (ii) rendered or confirmed the diagnosis(es). . ?Surgical Pathology DIAGNOSIS A - Neck mass, left, excision: ??- Reactive lymph node hyperplasia. Negative for malignancy (see ?Discussion). 09/03/15 DLO 09/03/15 Verified by: ? Young BACK, Pepper Eisenberg ?Hematopathologist ?(Electronic Signature) The attending pathologist whose signature appears on this report has reviewed all diagnostic slides and has edited the gross and/or microscopic portion of the report in rendering the final pathologic diagnosis. DISCUSSION Microscopic sections show a lymph node containing a mixture of primary (unstimulated) follicles and secondary follicles. There is expansion of the paracortical/interfolli cular zones by a heterogenous population of small CD3+ T-cells, immunoblasts, plasma cells, dendritic cells and histiocytes. Focally the sinuses are expanded by bland-appearing histiocytes. The immunostain for CD20 highlights B-lymphocytes in a normal distribution, and the germinal center B-lymphocytes are CD10+ BCL6+ and BCL2-, consistent with a normal reactive germinal center immunophenotype. The immunostain for CD30 highlights reactive lymphocytes and immunoblasts in the paracortex and at the edges of reactive follciles. No atypical lymphoid, Jake-Jayna or nonhematopoietic cell populations are identified. Th capsule is intact and the subcapsular sinuses are patent and uninvolved by a malignant process. There are no granulomata, abscesses or areas of necrosis identified. In summary, these morphologic and immunohistochemical findings are consistent with reactiv lymph node hyperplasia. There is no evidence for involvement by a lymphoproliferative or metastatic neoplasm. ??Flow cytometry immunophenotype analysis was performed concurrently (see separate report) and identified no abnormal immunophenotype T-cell or monoclonal B- cell populations, thus supporting the morphologic impression. ADDITIONAL STUDIES Immunohistochemistry Studies: Formalin-fixed, paraffin-embedded tissue sections are studied using the polymer technique with appropriate positive and negative controls. ?These IHC studies provide the pathologist with adjunctive diagnostic information. Antibody specificity has been verifie by testing antibodies on a series of in-house tissues with known immunohistochemical performance characteristics. The clinical interpretation of any antibody positive stainin or its absence is evaluated within the context of clinical presentation, morphology, histopathological criteria and other diagnostic tests. Block ?Antibody ? Result (Positive/Negative) A1 ? CD3 ?See above discussion ? CD20 ?CD10 ? CD30 ?BCL2 ?BCL6 CLINICAL INFORMATION Specimen Submitted: . CLINICAL INFORMATION A - Left neck mass Clinical History: Left neck mass FROZEN SECTION N/A SPECIMEN PROCESSING A - Labeled/Fixative: Left neck mass, fresh. Quantity/Size: single, 4 x 2 x 2 cm. Tissue Description: Nodule of light-johnson, soft tissue that has a cut surface that is partially solid, johnson and glistening, but shows areas of necrotic degeneration. Sections/Processing: A portion of this specimen was sent for flow cytometry and cytogenics. (R3) nsm A1 submitted for scanning ?Flow Cytometry DIAGNOSIS Left neck mass, biopsy, flow cytometry: - No immunophenotypically abnormal T-cell or monoclonal B-cell populations ?identified. Morphologic review pending (see Discussion). 08/31/15 DLO 08/31/15 Verified by: ? Pepper Vidal MD ?Hematopathologist ?(Electronic Signature) DISCUSSION The viability of this left neck mass biopsy specimen as assessed by 7-AAD exclusion is approximately 95%. The majority of lymphocytes in the specimen are CD3+ T-cells (60% of lymphocytes; 47% of total cells) with an appropriate mixture of mature CD4+ and CD8+ form (CD4:CD8 ratio approximately 4.0) without aberrant antigen loss or expression. CD3-CD56+ NK cells constitute 1% of lymphocytes (1% of total cells). B-cells account for 41% of lymphocytes (32% of total cells) and express surface light chains in a polytypic pattern (kappa:lambda approximately 1.4), thus there is no yeimi immmunophenotypic evidence for involvement of the neck mass by a monoclonal B-cell lymphoproliferative neoplasm. Althoug no abnormal immunophenotype lymphocyte populations are identified, flow cytometry will not routinely identify non-hematopoietic cells, monoclonal T-cell populations or Hodgkin lymphoma and may miss some B-cell lymphomas, thus correlation with morphologic review, which is currently in progress and the results of which will be reported separately when available, will be required for definitive diagnosis. Flow analysis is an ancillary study. A definite diagnosis requires correlation with the morphologic features of this process and if necessary, correlation with other ancillary studies like immunohistochemistry, enzyme cytochemistry and/or cyto/molecular genetics. This test was developed and its performance characteristics determined by the Clinical Flow Cytometry Laboratory at [facility]. It has not been cleared or approved by the U.S. Food and Drug Administration. ??The FDA has determined that such clearance or approval is not necessary. ??This test is used for clinical purposes. ??It should not be regarded as investigational or for research. ??This laboratory is certified under the Clinical Laboratory Improvement Act of 1988 (CLIA) as qualified to perform high complexity clinical laboratory testing. SPECIMEN PROCESSING [facility] [id number] . SPECIMEN PROCESSING Cells for immunophenotypic analysis were derived from tissue biopsy. ??CD45 vs side scatter gating was utilized to identify a lymphoid analysis region that comprises approximately 77-79% of all cells. The following markers were assessed: CD2, CD3, CD4, CD5, CD7, CD8, CD10, CD19, CD45, CD56, kappa light chain, and lambda light chain. CLINICAL INFORMATION 60 yo male with left neck mass. 09/03/2015 12:07 PM EDT [facility] SOFT TISSUE MASS / Unknown 08/31/2015 11:41 AM EDT 08/31/2015 11:41 AM EDT Kay Pavon MD PATHOLOGY/CYTOLOGY ORDERABLES Performing Organization Address [facility] [place] [address] * Immunophenotyping Flow Cytometry (08/31/2015 11:41 AM EDT) Immunophenotyping Flow See Comment [facility] Comment: When completed by the Pathologist, the Flow Cytometry Report ([id number]) will display under the Pathology Results section within [facility]. Specimen of unknown material (specimen) Other / Unknown 08/31/2015 11:41 AM EDT 08/31/2015 1:33 PM EDT Narrative Resulting Agency Comment Spec In Lab Kay Pavon MD HEMATOLOGY ORDERABL ES Performing Organization Address [facility] [place] [address] * Specimen to Pathology (surgical or derm) (08/31/2015 11:41 AM EDT) AP Specimen 08/31/2015 11:4 1 AM EDT 08/31/2015 11:41 AM EDT Narrative [facility] - 08/31/2015 11:41 AM EDT Specimen requisition ordered. ??Separate Pathology report to follow Kay Pavon MD PATHOLOGY/CYTOLOGY ORDERABLES Performing Organization Address [facility]/State/ZIP [place] [address] documented in this encounter Visit Diagnoses Not on filedocumented in this encounter Active and Recently Administered Medications Due to Daylight Saving Time, this section may contain times in both EST and EDT. Scheduled Medication Order 08/29/2015 08/30/2015 08/31/2015 ampicillin-sulbactam (UNASYN) 1.5 g vial attach to sodium chloride 0.9% 50 mL Mini-Bag Plus (COMPLETED) 1.5 g, Intravenous, 30 MIN PRE-OP, 1 dose, On Mon08/31/15 at 0830, Administer over 30 Minutes, Day of Surgery (Day of Procedure), Indication for (Active or Suspected): Prophylaxis 1010 (Given - Provid er: Jerry Leblanc MD) Continuous Medication Order 08/29/2015 08/30/2015 08/31/2015 lactated ringers infusion 1,000 mL (CANCELED) 1,000 mL, at 100 mL/hr, Intravenous, CONTINUOUS, Starting on Mon08/31/15 at 0915, Until Mon08/31/15 at 1407, Day of Surgery (Day of Procedure) 0935 (New Bag - Prov ider: Freida Sky CRNA)1154 (Anesthesia Volume Adjustment - Provider: Freida Sky CRNA)1229 (Anesthesia Volume Adjustment - Provider: Freida Sky CRNA) PRN Medication Order 08/29/2015 08/30/2015 08/31/2015 bacitracin ointment (CANCELED) ONCE PRN, Starting on Mon08/31/15 at 1205, Until Mon08/31/15 at 1407, Intra-Operative (Intra-Procedure) 1205 (Given - Provid er: Luis Saldivar MD) lidocaine-EPINEPHrine 1 %-1:200,000 injection (CANCELED) ONCE PRN, Starting on Mon08/31/15 at 1030, Until Mon08/31/15 at 1407, Intra-Operative (Intra-Procedure), Routine 1030 (Given - Provid er: Luis Saldivar MD) oxyCODONE (ROXICODONE) 5 mg/5 mL solution 5 mg 5 mg, Oral, EVERY 4 HOURS PRN, Starting on Mon08/31/15 at 1226, Until Mon08/31/15 at 1612, Pain, Routine documented in this encounter Care Teams Showcase Trimmer Relationship Specialty Start Date End Date Pattie Acosta PA [address] [place] [address] PCP - General Family Medicine 06/04/15 02/04/20 documented as of this encounter
--- OUTSIDE RECORDS SUMMARY | 2024-04-29 13:14 | XMS_ITS | Encounter Summary ---
Author Organization [facility] [place] [address] Care Team Providers Care Sales Support Technician Name Role Phone Pattie Acosta Primary Care Provider +1- [phone] Reason for Visit * Auth/Cert - Closed Specialty Diagnoses / Procedures Referred By Linda hwang Referred To Contact Diagnoses neck mass Procedures PRO EXCISION BRANC CLFT CYST, DEEP PRO LARYNGOSCOPY, DIRECT, DX, OP MICROSCOP EXCISION BRANCHIAL CLEFT CYST, VESTIGE OR FISTULA, DEEP LARYNGOSCOPY, WITH MICROSCOPE Referral ID Status Reason Start Date Expiration Date Visits Re quested Visits Authorized [id number] Closed 1 1 Encounter Details Date Type Department Care Team (Late st Contact Info) Description 08/31/2015 9:28 AM EDT - 08/31/2015 11:26 AM EDT [place] [id number] Kay Pavon MD [facility] [place] [address] EXCISION BRANCHIAL CLEFT CYST, VESTIGE OR FISTULA, DEEP (WRVU 7.31) Social History Tobacco Use Types Packs/Day Years [...] Sign Reading Time Taken Comments Blood Pressure 117/63 08/31/2015 8:13 AM EDT Pulse 62 08/31/2015 8:13 AM EDT Temperature 36.5 ??C (97.7 ??F) 08/31/2015 8:13 AM ED T Respiratory Rate 16 08/31/2015 8:13 AM EDT Oxygen Saturation 100% 08/31/2015 8:13 AM EDT Inhaled Oxygen Concentration - - [...] -You can reach the ENT clinic at [phone] for appointment questions. -The ENT triage nurse is available at [phone] -For urgent issues during evenings and weekends the ENT resident sandblaster stone can be reached through 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 [...] be [facility] 6.[facility]. Next, the patient was turned [...] 4:30 PM EDT Office Visit Dermatology at [facility] [address] [place] [address] Gary Kasepr MD [address] [facility] [address] (work) documented as of this encounter Procedures Procedure Name Priority Date/Time Associated Diagnosis Comments CHROMO REPORT ACQUIRED Routine 1:35 PM EDT IMMUNOPHENOTYPING FLOW CYTOMETRY (BLOOD) [...] EDT) Cytogenetics Acquired Report Final Report ? [id number] Specimen Type: Tumor Specimen Condition: Left neck [...] (Electronic Signature) Verified By: Kalin BACK, Ph.D., [facility] Director, Cytogenetics [facility] 08/31/2015 1:35 PM EDT Kay Pavon MD HEMATOLOGY ORDERABL ES [facility] [place] [place] [address] * Surgical Pathology Report (08/31/2015 11:41 AM EDT) Final Diagnosis [id number] ? Location: The signing pathologist has (i) [...] by the Clinical Flow Cytometry Laboratory at [facility]. It has not been cleared or [...] high complexity clinical laboratory testing. SPECIMEN PROCESSING [facility] [id number] . SPECIMEN PROCESSING Cells for immunophenotypic analysis [...] left neck mass. 09/03/2015 12:[address] [facility] SOFT TISSUE MASS / Unknown 08/31/2015 11:41 AM EDT 08/31/2015 11:41 AM EDT Kay Pavon MD PATHOLOGY/CYTOLOGY ORDERABLES Performing Organization Address [facility] [place] [address] * Immunophenotyping Flow Cytometry (08/31/2015 11:41 AM EDT) Immunophenotyping Flow See Comment [facility] Comment: When completed by the Pathologist, the Flow Cytometry Report ([id number]) will display under the Pathology Results section within eD. Specimen of unknown material (specimen) Other / Unknown 08/31/2015 11:41 AM EDT 08/31/2015 1:33 PM EDT Narrative Resulting Agency Comment Spec In Lab Kay Pavon MD HEMATOLOGY ORDERABL ES Performing Organization Address [facility] Co de Phone Number [facility] [place] [address] * Specimen to Pathology (surgical or derm) (08/31/2015 11:41 AM EDT) AP Specimen 08/31/2015 11:4 1 AM EDT 08/31/2015 11:[address] [facility] - 08/31/2015 11:41 AM EDT Specimen requisition ordered. ??Separate Pathology report to follow Kay Pavon MD PATHOLOGY/CYTOLOG[place] [address] documented in this encounter Visit Diagnoses Not on filedocumented in this encounter Administered Medications Inactive Administered Medications - up to 3 most recent administrations Medication Order MAR Action Action Date Dose Rate Site bacitracin ointment ONCE PRN, Starting on Mon08/31/15 at 1205, Until Mon08/31/15 at 1407, Intra-Operative (Intra-Procedure) Given 08/31/2015 12:05 PM EDT 1 Tube 19- Surgical Site lidocaine-EPINEPHrine 1 %-1:200,000 injection ONCE PRN, Starting on Mon08/31/15 at 1030, Until Mon08/31/15 at 1407, Intra-Operative (Intra-Procedure), Routine Given 08/31/2015 10:30 AM EDT 6 mLs 19- Surgical Site documented in this encounter Active and Recently [...] Routine documented in this encounter Care Teams Sales Support Technician Relationship Specialty Start Date End Date Pattie Acosta PA [address] [place] [address] PCP - General Family Medicine 06/04/15 02/04/20 documented as of this encounter
--- OUTSIDE RECORDS SUMMARY | 2024-04-29 13:14 | XMS_ITS | Encounter Summary ---
Author Organization [facility] [place] [address] Care Team Providers Care Certified Nov[employer] Engineer Name Role Phone Pattie Acosta Primary Care Provider +1- [phone] Reason for Visit * Reason Comments Follow-up f/up PET scan, Neck mass Encounter Details Date Type Department Care Team (Late st Contact Info) Description 08/18/2015 11:00 AM EST Office [place] [address] Nadeem Pavon MD [facility] [place] [address] Neck mass Social History Tobacco Use Types [...] Sign Reading Time Taken Comments Blood Pressure 132/74 08/18/2015 10:34 AM EST Pulse 84 08/18/2015 10:34 AM EST Temperature - - Respiratory Rate - - Oxygen Saturation - - Inhaled Oxygen Concentration - - Weight 81 kg (178 lb 9.2 oz) 08/18/2015 10:34 AM EST Height 175.3 cm (5' 9) 08/18/2015 10:34 AM EST Body Mass Index 26.37 08/18/2015 10:34 AM EST documented in this encounter Progress Notes * Nadeem Pavon MD - 08/18/2015 11:20 AM EST Images from the original note were not included. Subjective: Patient ID: Ed Carrasco is a 60 y.o. male. HPI Ed Carrasco is seen in follow up of his nearly 1 year hx of a left neck mass. THere is no change since his last visit He reported noting a mass in the [...] non drinker. No use of chewing tobacco. FNA showing: FNA biopsy: Abundant anucleate squamous epithelial cells, keratin debris, generally bland squamous ??epithelial cells, and rare dyskeratotic squamous cells present. Cell block shows similar features. Additional levels examined. Differential diagnosis is wide and includes: branchial cleft cyst, thyroglossal duct cyst, ??epidermal inclusion cyst, etc. However, the possibility of squamous cell neoplasm cannot ??be entirely excluded. Clinical and radiologic correlation is required. Patient underwent PET-CT earlier today. NO new complaints History reviewed. No pertinent past medical history. Past Surgical History Procedure Laterality Date ??? Colon surgery ??? Hernia repair Current outpatient prescriptions: ??? multivitamin (THERAGRAN) tablet, Take 1 tablet by mouth daily., Disp: , Rfl: No current facility-administered medications for this visit. Allergies Allergen Reactions ??? Vicodin [Hydrocodone-Acetaminophen] Nausea [...] on file Social History Narrative [employer] in the last 26 years. Review [...] left neck mass which has not changed. FNA and PET-CT favoring so far benign process, however cannot be completely clear until neck mass excised. Discussed taking patient to the OR for EUA and biopsies if needed, with excision of left neck mass.Discussed embryology of branchial cleft remnants, risks involved, recurrence. Patient wants to go ahead with plan. Consent signed. documented in this encounter Plan of Treatment Upcoming Encounters Date Type Department Care Team (Late st Contact Info) Description 10/18/2024 4:30 PM EDT Office Visit Dermatology at [facility] [address] [place] [address] Gary Kasper MD [address] [facility] [address] documented as of this encounter Procedures Procedure Name Priority Date/Time Associated Diagnosis Comments EXCISION BRANCHIAL CLEFT CYST,VESTIGE OR FISTULA,DEEP Routine 08/18/2015 11:19 AM EST LARYNGOSCOPY, WITH MICROSCOPE Routine 08/18/2015 11:19 AM EST documented in this encounter Visit Diagnoses Diagnosis Neck mass Swelling, mass, or lump in head and neck documented in this encounter Care Teams Certified [employer] Engineer Relationship Specialty Start Date End Date Pattie Acosta PA [address] [place] [address] PCP - General Family Medicine 06/04/15 02/04/20 documented as of this encounter
--- OUTSIDE RECORDS SUMMARY | 2024-04-29 13:14 | XMS_ITS | Encounter Summary ---
[place] [address] Care Team Providers Care Fashion Journalist Name Role Phone Pattie Acosta Primary Care Provider +1- [phone] Reason for Referral * Diagnostic Test (Routine) - Closed Specialty Diagnoses / Procedures Referred By Contac t Referred To Contact Radiology Diagnoses Neck mass Procedures PET/CT STANDARD (Skull base to Mid-thigh) Nadeem Pavon MD [facility] [place] [address] [place] [address] Referral ID Status Reason Start Date Expiration Date V isits Requested Visits Authorized [id number] Closed Specialty Service Requested 08/18/2015 10/16/2015 2 2 Reason for Visit * Diagnostic Test (Routine) - Closed Specialty Diagnoses / Procedures Referred By Contac t Referred To Contact Radiology Diagnoses Neck mass Procedures PET/CT STANDARD (Skull base to Mid-thigh) Nadeem aPvon MD [facility] [place] [address] [facility] [place] [address] Referral ID Status Reason Start Date Expiration Date V isits Requested Visits Authorized [id number] Closed Specialty Service Requested 08/18/2015 10/16/2015 2 2 Encounter Details Date Type Department Care Team (Latest Contact Info) Description 08/18/2015 8:13 AM EST Hospital Encounter [place] [address] Nadeem Pavon MD [facility] [place] [address] Neck mass Discharge Disposition: Home [...] 4:30 PM EDT Office Visit Dermatology at [facility] [address] [place] [address] Gary Kasper MD [address] [facility] [address] documented as of this encounter Procedures Procedure Name Priority Date/Time Associated Diagnosis Comments NM PET CT SKULL BASE TO MID-THIGH (LCSR) Routine 08/18/2015 9:53 AM EST Neck mass documented in this encounter Results * PET/CT STANDARD (Skull [...] Thank you for referring this patient to [facility]. I have personally reviewed the image(s) and the residents interpretation and agree with the findings, Luis Ugarte at 08/18/2015 11:29 AM Narrative 08/18/2015 11:29 AM EST EXAMINATION: PET/CT STANDARD (SKULL BASE TO MID THIGH) CLINICAL HISTORY: nearly 1 year hx of left upper neck mass TECHNIQUE: Procedure: Following IV injection of 21-smdadd-6-deoxyglucose (FDG) a standard uptake of approximately 60 [...] mass TECHNIQUE: Procedure: Following IV injection of 04-fqkymg-3-deoxyglucose(FDG) a standard uptake of approximately 60 minutes, [...] Thank you for referring this patient to [facility]. I have personally reviewed the image(s) and the residents interpretationand agree with the findings, Luis Ugarte at 08/18/2015 11:29 AM Nadeem Pavon MD IMG PET ORDERABLES documented in this encounter Visit Diagnoses Diagnosis Neck mass Swelling, mass, or lump in head and neck documented in this encounter Administered Medications Inactive Administered Medications - up to 3 most recent administrations Medication Order MAR Action Action Date Dose Rate Site fludeoxyglucose (F-18) FDG injection 11.99 mCi 11.99 mCi, Intravenous, ONCE PRN, 1 dose, Starting on Mon08/18/15 at 0833, Until Mon08/18/15 at 0834, Per Protocol, Routine Given 08/18/2015 8:34 AM EST 11.99 mCi documented in this encounter Care Teams Fashion Journalist Relationship Specialty Start Date End Date Pattie Acosta PA [address] [place] [address] PCP - General Family Medicine 06/04/15 02/04/20 documented as of this encounter
--- OUTSIDE RECORDS SUMMARY | 2024-04-29 13:14 | XMS_ITS | Encounter Summary ---
Author Organization [facility] [place] [address] Care Team Providers Care Evp Strategy Name Role Phone Hany Foote MD Primary Care Provider Encounter Details Date Type Department Care Team (Late st Contact Info) Description 05/25/2015 - 05/25/2015 11:59 PM [facility] Hospital Encounter Radiology Library at [facility] [place] [address] [facility] Discharge Disposition: Home [...] 4:30 PM EDT Office Visit Dermatology at [facility] [address] [place] [address] Gary Kasper MD [address] [place] [address] documented as of this encounter Procedures Procedure Name Priority Date/Time Associated Diagnosis Comments FILM LIBRARY STORAGE ONLY ULTRASOUND STUDY Routine 05/25/2015 12:00 AM EST Pain documented in this encounter Results * Film Library- Storage only Ultrasound Study (05/25/2015 12:00 AM EST) Narrative [facility] - 06/09/2015 2:38 PM EST See PACS for result report. Dr Boucher [facility] FILM LIBRARY ORD ERABLES [place] documented in this encounter Visit Diagnoses Diagnosis Pain Generalized pain documented in this encounter Care Teams Evp Strategy Relationship Specialty Start Date End Date Hany Foote MD [address] [place] [address] PCP - General 05/11/10 06/03/15 documented as of this encounter
--- OUTSIDE RECORDS SUMMARY | 2024-04-29 13:14 | XMS_ITS | Encounter Summary ---
[place] [address] Care Team Providers Care Riding Teacher Name Role Phone Hany Foote MD Primary Care Provider Reason for Visit * Reason Comments Skin Check Encounter Details Date Type Department Care Team (Late st Contact Info) Description 04/30/2012 8:15 AM EST Office Visit Dermatology [address] [place] [address] [address] [place] [address] Stas De Dios MD [address] [facility], [place] [address] History of atypical nevus (Primary Dx) Social History Tobacco Use Types Packs/Day Years Used Date Smoking Tobacco: Never Assessed Sex and Gender Information Value Date Recorded Sex Assigned at Not on file Gender Identity Not on file Sexual Orientation Not on file documented as of this encounter Progress Notes * Stas De Dios MD - 04/30/2012 8:25 AM EST Problem: 1. Yearly skin checkup. 2. 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 3. History of facial rosacea/seborrheic dermatitis, adequately controlled now with 1% hydrocortisone cream. Sajan follows up and has been doing well. His rosacea has been well controlled with uoqv-pza-ybcozks hydrocortisone cream. He is not using MetroGel or Sulfacet-R anymore. He has not noted any new lesions or moles of concern. Physical examination reveals that the patient has a few papules of subcutaneous hyperplasia on the forehead but really no active rosacea, no erythematous papules on the cheeks or bridge of nose. He has a benign examination of the head and the neck, the chest, the back, hands, arms, forearms, thighs, and calves. A surgical scar on the central upper back just left of midline remains well healed. Continues to have a 3-mm macule just to the left of the midline the scar. Examination is entirely benign. Assessment and Plan: 1. 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 a. Benign examination today. b. Patient reassured. c. Continue sun avoidance precautions. d. Return to clinic in one year for repeat check. e. May consider p.r.n. followups if exam is benign in a year. 2. Rosacea/seborrheic dermatitis of face and scalp. a. Continue 1% oufz-wwj-yobrkem hydrocortisone cream sparingly as needed. Return to clinic one year. Return to clinic reminder one year. Copy: Hanna Echeverria M.C., P.A.-C. documented in this encounter Plan of Treatment Upcoming Encounters Date Type Department Care Team (Late st Contact Info) Description 10/18/2024 4:30 PM EDT Office Visit Dermatology at [facility] [address] [place] [address] Gary Kasper MD [address] [place] [address] documented as of this encounter Visit Diagnoses Diagnosis History of atypical nevus- Primary Personal history of diseases of skin and subcutaneous tissue documented in this encounter Care Teams Riding Teacher Relationship Specialty Start Date End Date Hany Foote MD [address] [place] [address] PCP - General 05/11/10 06/03/15 documented as of this encounter
--- OUTSIDE RECORDS SUMMARY | 2024-04-29 13:14 | XMS_ITS | Encounter Summary ---
Author Organization [facility] [place] [address] Care Team Providers Care Talent Sourcer Name Role Phone Unavailable Primary Care Provider Unavailabl e Encounter Details Date Type Department Care Team (Late st Contact Info) Description 05/03/2010 1:00 PM EST Office Visit Dermatology [address] [place] [address] [address] [place] [address] Stas De Dios MD [address] [place] [address], [place] [address] Social History Tobacco Use Types Packs/Day Years [...] 4:30 PM EDT Office Visit Dermatology at [facility] [address] [place] [address] Gary Kasper MD [address] [facility] [place] [address] documented as of this encounter Visit Diagnoses Not on filedocumented in this encounter
--- OUTSIDE RECORDS SUMMARY | 2024-04-29 13:14 | XMS_ITS | Encounter Summary ---
Author Organization [facility] [place] [address] Care Team Providers Care Electronic Equipment Trades Worker Name Role Phone Pattie Acosta Primary Care Provider +1- [phone] Reason for Referral * Diagnostic Test (Routine) - Closed Specialty Diagnoses / Procedures Referred By Linda hwang Referred To Contact Radiology Diagnoses Neck mass Procedures IR Thyroid FNA Biopsy Nadeem Pavon MD [facility] [place] [address] [place] [address] Referral ID Status Reason Start Date Expiration Date V isits Requested Visits Authorized [id number] Closed Specialty Service Requested 07/12/2015 07/11/2016 1 1 Reason for Visit * Reason Comments Neck Mass Left side, x 8 month s- noticed it when he couldn't button his tie Encounter Details Date Type Department Care Team (Late st Contact Info) Description 2015 9:20 AM EST Office [place] [address] Nadeem Pavon MD [facility] [place] [address] Neck mass Social History Tobacco Use Types [...] Sign Reading Time Taken Comments Blood Pressure 117/81 2015 9:22 AM EST Pulse 67 2015 9:22 AM EST Temperature - - Respiratory Rate - - Oxygen Saturation - - Inhaled Oxygen Concentration - - Weight 79.4 kg (175 lb) 2015 9:22 AM EST Height 175.3 cm (5' 9) 2015 9:22 AM EST Body Mass Index 25.84 2015 9:22 AM EST documented in this encounter Progress Notes * Nadeem Pavon MD - 2015 10:02 AM EST Images from the original note were not included. Subjective: Patient ID: Ed Carrasco is a 60 y.o. male. HPI Ed Carrasco is seen in consultation from NELSON MCCOLLUM in regards to left neck mass The following records were reviewed: office records, u/s neck, CT scan neck The history is obtained through patient interview, review of relevant records, and/or discussion with referring provider. He reports noting a mass in the left upper neck x July 2014 without other precipitating events.Mass has caused tightness in wearing shirt and collar but otherwise denies appreciable change in size or growth. He denies having sore throat or other upper aerodigestive tract complaint at the time and none since. He denies constitutional symptoms, no [...] surgery ??? Hernia repair Current outpatient prescriptions: multivitamin (THERAGRAN) tablet, Take 1 tablet by mouth daily., Disp: , Rfl: Allergies Allergen Reactions ??? Percocet [Oxycodone-Acetaminophen] ??? Sulfa (Sulfonamide Antibiotics) [...] on file Social History Narrative [employer] in the last 26 years. Review of [...] content normal. Nursing note and vitals reviewed. Procedure: Flexible Laryngoscopy Indications: Evaluation for mucosal lesion of the upper airway Procedure and findings: The nasal mucosae are topicalized with pontacaine/afrin anesthesia. The flexible endoscope is passed through the nasal cavities and evaluation of the nasopharynx, oropharynx and larynx is performed. All of the visualized mucosae are normal except for the following: Normal appearng mucosae without concerning lesion in the back of the nose or oropharynx. There is mild asymmetry in the appearance of the left tonsil and left base of tongue region, but no redness nor concerning ulcer or lesion. Valleculae and piriforms clear. Vocal cord appearance normal. Vocal cord mobility normal with some foreshortening CT scan neck 06/01: 16 x 22 mm mass of the left zone 2 anterior to the SCM and anterolateral to carotid vessels, subtle asymmetry of the left side of the pharynx, but no focal mass Assessment and Plan: Patient with nearly 12 mo hx of left neck mass which has not changed. Mass is separate from the parotid tail and may represent a lymph node. There is nothing specific I could identify in the physicalexam except for the mild asymmetry. Recommended we plan FNAB of this mass. He does have prior hx ofsmoking in the past. We discussed that after that may need to consider PET-CT or endoscopy with open biopsy. He is in agreement with this plan. documented in this encounter Plan of Treatment Upcoming Encounters Date Type Department Care Team (Late st Contact Info) Description 10/18/2024 4:30 PM EDT Office Visit Dermatology at [facility] [address] [place] [address] Gary Kasper MD [address] [facility] [address] documented as of this encounter Results * IR Thyroid FNA Biopsy (07/15/2015 3:45 [...] at 07/15/2015 6:06 PM Nadeem Pavon MD IMG IR ORDERABLES documented in this encounter Visit Diagnoses Diagnosis Neck mass Swelling, mass, or lump in head and neck Neck mass Swelling, mass, or lump in head and neck documented in this encounter Care Teams Electronic Equipment Trades Worker Relationship Specialty Start Date End Date Rathburn, Jeniane L, PA [address] [place] [address] PCP - General Family Medicine 06/04/15 02/04/20 documented as of this encounter
--- OUTSIDE RECORDS SUMMARY | 2024-04-29 13:14 | XMS_ITS | Encounter Summary ---
Author Organization [facility] [place] [address] Care Team Providers Care Wood Barrel Reconditioner Name Role Phone Pattie Acosta Primary Care Provider [phone] Encounter Details Date Type Department Care Team (Late st Contact Info) Description 10/15/2009 Orders Only Dermatology at [place] [address] [place] [id number] Stas De Dios MD [address] [facility], [facility] [place] [address] Social History Tobacco Use Types Packs/Day Years [...] PM EDT Office Visit Dermatology at [facility] [address] [place] [address] Gary Kasper MD [address] [facility] [place] [address] documented as of this encounter Procedures Procedure Name Priority Date/Time Associated Diagnosis Comments SURGICAL PATHOLOGY REPORT Routine 10/15/2009 6:08 PM EDT documented in this encounter Results * Surgical Pathology Report (10/15/2009 6:08 PM EDT) Surgical Pathology Report [id number] ? Location: [facility] The signing pathologist has (i) examined the relevant preparation(s) for the specimen(s) and (ii) rendered or confirmed the diagnosis(es). . ?Pathology Surgical Pathology Final Report Clinical Information Specimen Submitted: A - (L) upper back, Excision: Clinical History: Atypical mole/borderline MM, [id number] for excision Clinical Diagnosis: Atypical mole/borderline MM, [id number] for excision Report to: Stas De Dios MD, III [facility] Dermatology [place], [place] ??[address] Gross Description Labeled/Fixative : ? L upper back, formalin. Qty/Size/Weight: ?Single, 3.6 x 1.9 x 0.7 cm. Tissue Description: ?? Ellipse of johnson-white skin with a central, ?encrusted lesion, presumably previous biopsy site, ?1.2 x 0.8 cm in greatest dimensions. ??The specimen ?is received unoriented. Sections/Process ing: ??The specimen is inked and serially sectioned. ?The ends are submitted in (1); the remainder of ?the specimen submitted in (2-6). ??(T6) ??jlk/PPS Microscopic Description Slides reviewed, microscopic description not recorded. Diagnosis Skin of left upper back, excision: 1. Focal atypical lentiginous junctional melanocytes near scar, margins ?appear negative. (see Comment). 2. Incidental lentigines. 10/16/09 AEP 10/17/09 Verified by: ? Beatriz Khoury MD ?Dermatopatholo gist ?(Electronic Signature) The attending pathologist whose signature appears on this report has reviewed all diagnostic slides and has edited the gross and/or microscopic portion of the report in rendering the final pathologic diagnosis. Comment The findings are not definitively conclusive for residual lesion, and could also represent reactive changes of atypical lentiginous hyperplasia near scar. CIARA NYE 10/15/2009 6:08 PM EDT Stas De Dios MD PATHOLOGY/CYTOLOGY O RDERABLES CIARA NYE documented in this encounter Visit Diagnoses Not on filedocumented in this encounter Care Teams Wood Barrel Reconditioner Relationship Specialty Start Date End Date Pattie Acosta PA [address] [place] [address] PCP - General Family Medicine 01/25/21 documented as of this encounter
--- OUTSIDE RECORDS SUMMARY | 2024-04-29 13:14 | XMS_ITS | Encounter Summary ---
Author Organization [facility] [place] [address] Care Team Providers Care Director Of Operations Home Health Name Role Phone Hany Foote MD Primary Care Provider Reason for Visit * Reason Comments Skin Check Encounter Details Date Type Department Care Team (Late st Contact Info) Description 09/15/2014 9:45 AM EDT Office Visit Dermatology at [place] [address] [place] [phone] Stas De Dios MD [address] [facility] A DERMATOLOGY [place], [place] [id number] History of atypical nevus; Acne rosacea Discharge Disposition: Home Social History Tobacco Use Types Packs/Day Years Used Date Smoking Tobacco: Passive Smo ke Exposure - Never Smoker Sex and Gender Information Value Date Recorded Sex Assigned at Not on file Gender Identity Not on file Sexual Orientation Not on file documented as of this encounter Patient Instructions * Patient Instructions* Tiffanie Gillespie LPN - 09/15/2014 9:44 AM EDT Images from the original note were not included. [facility] Moles: After Your Visit Your Care Instructions Moles are skin growths made up of cells that produce color (pigment). A mole can appear anywhere onthe skin, alone or in groups. Most people get a few moles during their first 20 years of life. Theyare usually brown in color but can be blue, black, or flesh-colored. Most moles are harmless and donot cause pain or other symptoms, unless you rub them or they bump against something. You usually do not need treatment for moles. But some can turn into cancer. Talk to your doctor if a mole bleeds, itches, acosta, or changes size or color. Also let your doctor know if you get a new mole. Make sure to wear sunscreen and other sun protection every day to help prevent skin cancer. Follow-up care is a underwood part of your treatment and safety. Be sure to make and go to all appointments, and call your doctor if you are having problems. It???s also a good idea to know your test results and keep a list of the medicines you take. How can you care for yourself at home? ?? Check all the skin on your body once a month for skin growths or other changes, such as in the color and feel of the skin. ?? lighting engineering technician front of a full-length mirror. Look carefully at the front and back of your body. Then look at your right and left sides with your arms raised. ?? Bend your elbows and look carefully at your forearms, the back of your upper arms, and your palms. ?? Look at your feet, the bottoms of your feet, and the spaces between your toes. ?? Use a hand mirror to look at the back of your legs, the back of your neck, and your back, rear end (buttocks), and genital area. Part the hair on your head to look at your scalp. ?? If you see a change in a skin growth, contact your doctor. Look for: ?? A mole that bleeds. ?? A fast-growing mole. ?? A scaly or crusted growth on the skin. ?? A sore that will not heal. To prevent skin cancer ?? Always wear sunscreen on exposed skin. Make sure the sunscreen blocks ultraviolet rays (both UVAand UVB) and has a sun protection factor (SPF) of at least 15. Use it every day, even when it is cloudy. Some doctors may recommend a higher SPF, such as 30. ?? Wear a wide-brimmed hat and long sleeves and pants if you are going to be outdoors for very long. ?? Avoid the sun between 10 a.m. and 4 p.m., which is the peak time for the sun's ultraviolet rays. ?? Avoid sunburns, tanning booths, and sunlamps. ?? Be sure to protect children from the sun. Sunburns in childhood damage the skin and increase therisk of cancer. When should you call for help? Watch closely for changes in your health, and be sure to contact your doctor if: ?? A mole looks different than it did before. It may have changed in size, color, shape, or the wayit looks. ?? You have a new mole. ?? You have a new pimple or skin growth that does not go away. Where can you learn more? Visit our health information library at [email or web address] You can also view health information on [employer], your personal patient account. Log in or sign up today. Enter M489 in the search box to learn more about Moles: After Your Visit. ?? [id number] [employer]. Care instructions adapted under license by [facility]. This care instruction is for use with your licensed healthcare professional. If you have questions about a medical condition or this instruction, always ask your healthcare professional. [employer] disclaims any warranty or liability for your use of this information. Content Version: 10.3.849234; Current as of: August 28, 2013 documented in this encounter Progress Notes * Stas De Dios MD - 09/15/2014 9:50 AM EDT Problem: 1. Yearly skin check. 2. 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 3. History of facial rosacea/seborrheic dermatitis, not adequately controlled now with 1% hydrocortisone cream. Sajan follows up and while he has been doing well otherwise, his rosacea has been constantly coming and going and flaring. Treatment in the past has included MetroGel and Sulfacet-R without benefit. He applies 1% hydrocortisone cream b.i.d. Physical examination today reveals a few erythematous papules on the forehead and cheeks. He has otherwise a benign examination of the head and neck, the chest, the back, hands, arms, forearms, thighs, and calves. The surgical scar of the central upper back just left of midline remains well healed. He continues to have a 3-mm macule just to the left of the midline of the scar. Assessment and Plan: 1. 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 a. Patient reassured about benign examination today. b. Recommend I see the patient again in another year for repeat check. 2. Rosacea/seborrheic dermatitis. a. Begin trial of clindamycin 1% solution. b. Could also still consider trial of ketoconazole. The patient knows to do a use test with the clindamycin first on his arm before he starts applying it to his face. Could also consider 2% erythromycin. Return to clinic reminder one year. COPY: Hany Foote M.D. documented in this encounter Plan of Treatment Upcoming Encounters Date Type Department Care Team (Late st Contact Info) Description 10/18/2024 4:30 PM EDT Office Visit Dermatology at [facility] [address] [place] [address] Gary Kasper MD [address] [facility] [place] [address] documented as of this encounter Visit Diagnoses Diagnosis History of atypical nevus Personal history of diseases of skin and subcutaneous tissue Acne rosacea Rosacea documented in this encounter Care Teams Director Of Operations Home Health Relationship Specialty Start Date End Date Hany Foote MD [address] [place] [address] PCP - General 05/11/10 06/03/15 documented as of this encounter
== END 2024-04-29 13:11 | disposition home or self-care (01) ==
LOC: LBO 13:11
PROVIDERS: PCP Physician Assistant Medical; Visit Provider Surgery
DX: K40.90 Unilateral inguinal hernia, without obstruction or gangrene, not specified as recurrent (principal); D01.3 Carcinoma in situ of anus and anal canal; K21.9 Gastro-esophageal reflux disease without esophagitis
CPT/HCPCS: 36415; 80053; 99203; 85025

== ENCOUNTER 2024-05-21 05:55 | Day surgery (SDC) | payer MEDICARE, BC, SELFPAY ==
[2024-05-21] VITALS (16 sets, daily range): BP systolic 113–134; BP diastolic 64–95; PULSE 58–68; RESP 11–23; TEMP 36–36.8; O2SAT 97–100; BMI 25.5
--- NOTE | 2024-05-21 06:55 | ANES.PREOP_ITS ---
General Info Date of Service Date Performed: 05/21/24 Height: 5 ft 9 in Weight: 78.471 kg Body Mass Index (BMI): 25.5 Surgical Procedure: Operation Date: 05/21/24 07:40 Proposed Procedure Side Surgeon p Hernia Inguinal Laparoscopic Right Marco Rossi MD Meds Allergies and Home Medications Allergies Allergy/AdvReac Type Severity Reaction Status Date / Time hydrocodone Allergy Unknown Unknown Verified 05/21/24 06:35 Sulfa (Sulfonamide Allergy Unknown Swelling/Ed Verified 05/21/24 06:35 Antibiotics) rajeev oxycodone HCl (From Percocet) AdvReac Severe NAUSEA/VOMI Verified 05/21/24 06:35 TING Home Medication ?Medication ?Instructions ?Recorded multivitamin (Daily Multiple 1 ea PO DAILY 10/26/15 tablet) ibuprofen 600 mg tablet 600 mg PO TID PRN PRN #90 tabs 11/03/15 acetaminophen 500 mg tablet 500 mg PO Q6H PRN PRN #60 tabs 09/19/17 (Acetaminophen Extra Strength) atorvastatin 10 mg tablet 10 mg PO QHS 04/18/24 bupropion HCl 200 mg tablet,12 hr 200 mg PO DAILY 04/18/24 sustained-release doxycycline hyclate 50 mg capsule 50 mg PO DAILY 04/18/24 saw palmetto 450 mg capsule 450 mg PO BID 04/29/24 Current Visit Medications: Current Medications Generic Name Dose Route Start Last Admin Trade Name Freq PRN Reason Stop Dose Admin Acetaminophen 1,000 mg 05/21/24 06:00 Acetaminophen 500 Mg Tab PO 05/21/24 23:59 PREOP BRINA Gabapentin 600 mg 05/21/24 06:00 Gabapentin 300 Mg Cap PO 05/21/24 23:59 PREOP BRINA Ringer's Solution 1,000 mls @ 80 mls/hr 05/21/24 06:00 IV 05/21/24 23:59 INFUSION BRINA Cefazolin Sodium/Dextrose 2 gm in 50 mls @ 100 mls/hr 05/21/24 06:00 Ancef Duplex IVPB 05/21/24 23:59 PREOP BRINA IV Miscellaneous Supplies 1 each 05/21/24 06:00 Iv Access IV 05/21/24 23:59 DIRECTED BRINA Sodium Chloride 0 ml 05/21/24 06:00 Normal Saline Flush 10 Ml Syr IV 05/21/24 23:59 PRN PRN Sodium Chloride 0 ml 05/21/24 06:00 Normal Saline 10 Ml Vial IJ 05/21/24 23:59 DIRECTED PRN Sterile Water 0 ml 05/21/24 06:00 Water,Injection,Sterile 10 Ml Vial IJ 05/21/24 23:59 DIRECTED PRN PFSH Active Problems Active Problems: Problem Status Onset Code Hernia, inguinal, unilateral Acute K40.90 Medical History Medical History Difficult airway Small Palette Gastroesophageal reflux disease Rectal hemorrhage Carcinoma in situ of anus Surgical History Surgical History History of prostate surgery Repair of inguinal hernia (04/26/10) LEFT Excision, Cervicle Lymph Nodes Tobacco Smoking/Tobacco Use Status: Former Tobacco Use Alcohol Alcohol Intake: never Substance Use Substance use: Never Substance use type: does not use Vital Signs and Lab Results Lab Results Blood Type / Crossmatch: No Data to Display Complete Blood Count: White Blood Count 5.19 10^3/uL (4.4-10.8) 04/29/24 10:55 Red Blood Count 5.09 10^6/uL (4.36-5.78) 04/29/24 10:55 Hemoglobin 15.3 g/dL (13.5-17.5) 04/29/24 10:55 Hematocrit 45.5 % (40.0-50.0) 04/29/24 10:55 Platelet Count 266 10^3/uL (130-400) 04/29/24 10:55 Complete Metabolic Panel: Sodium 141 mmol/L (136-145) 04/29/24 10:55 Potassium 4.5 mmol/L (3.5-5.1) 04/29/24 10:55 Chloride 104 mmol/L (98-107) 04/29/24 10:55 Carbon Dioxide 29.2 mmol/L (21.0-32.0) 04/29/24 10:55 BUN 13 mg/dL (7-18) 04/29/24 10:55 Creatinine 0.9 mg/dL (0.70-1.30) 04/29/24 10:55 Est GFR (CKD-EPI 2020) 92.45 (mL/min/1.73m2) 04/29/24 10:55 Calcium 8.9 mg/dL (8.5-10.1) 04/29/24 10:55 Albumin 3.7 g/dL (3.4-5.0) 04/29/24 10:55 Glucose 103 mg/dL (74-106) 04/29/24 10:55 Liver Function Panel: Alanine Aminotransferase (ALT/SGPT) 54 U/L (16-63) 04/29/24 10: 55 Aspartate Amino Transf (AST/SGOT) 32 U/L (15-37) 04/29/24 10:55 Coagulation Panel: No Data to Display Cardiac Panel: No Data to Display Arterial Blood Gas: No Data to Display Venous Blood Gas: No Data to Display Pancreas Panel: No Data to Display Thyroid Panel: No Data to Display Infectious Disease: No Data to Display Blood Cultures: No Data to Display Toxicology Panel: No Data to Display Anesthesia Assessment and Plan Anesthesia History Personal History: Other Family History: No Family History of Anesthesia Complications Exercise Tolerance Exercise Tolerance: Metabolic Equivalents>4 Pertinent Negatives Pertinent Negatives: No Symptoms of GERD, No Major Cardiovascular Symptoms or Complaints, No Major Pulmonary Symptoms or Complaints and No History of CVA/TIA Cardiac & Pulmonary Exam Cardiac Exam: Normal S1/S2 Heart Sounds Pulmonary Exam: Clear Bilateral Breath Sounds Implantable Cardiac Device Does patient have a Pacemaker or an ICD?: No Airway Exam Known Difficult Airway: No Mallampati Class: 2 Mouth Opening: Narrow (< 3cm) (high palate) Thyromental Distance: Greater than 3 cm Neck Range of Motion: Full ROM Neck Circumference: Normal Teeth Condition: Normal Dentition ASA Classification ASA Score: ASA 2 Emergency Case?: No NPO Status NPO Status: NPO Clears >2 hours, Solids >8 hours Anesthesia Plan Resuscitation Status: Full Code Anesthesia Technique: General Anesthesia Airway Planned: Endotracheal Tube Pain Management: Surgeon and patient request nerve block (as needed) Monitors Used: Standard Monitors
[2024-05-21] MEDS: Gabapentin 300 MG CAP 600 MG PO (06:58)
[2024-05-21] MEDS: Normal Saline 1,000 ML 80 ML IV (07:10)
[2024-05-21] MEDS: Acetaminophen 500 MG TAB 1000 MG PO ×2 (07:18→07:19)
[2024-05-21] MEDS: ceFAZolin 2 GM/50 ML BAG IVPB (07:54)
[2024-05-21] MEDS: Bupivacaine LIPOSOME/PF 133 MG/10 ML VIAL IJ (08:13)
[2024-05-21] MEDS: Bupivacaine 0.25% Pres-Free 30 ML VIAL (08:13)
--- NOTE | 2024-05-21 09:22 | ROE_ITS ---
Operative Note Operative Note Refer to Anesthesia Record Procedure Description: PROCEDURES PERFORMED: 1. Laparoscopic RIGHT inguinal hernia repair of primary, reducible inguinal hernia Preoperative Diagnosis: Reducible RIGHT inguinal hernia Postoperative Diagnosis: Same Surgeon: Karol Rossi Assist: Mary Anesthesia: General Anesthesiologist: Sandrita Indication: Symptomatic reducible right primary inguinal hernia Findings: No incarcerated contents in a large right indirect hernia. Posterior (CRESCENCIO) repair with 3D bijal MID mesh Complications: None Estimated Blood Loss: (5cc) Scant Specimens removed: None Grafts or implants: 3D max MID RIGHT large mesh Procedure in detail: Written consent was obtained from the patient who was in agreement with the risks, the benefits and the indications for the procedure. The patient was taken to the operating suite and laid supine on the operating table with his left arm tucked. IV antibiotics had been given. Venodynes were in place. General anesthesia was administered which was tolerated very well. We then prepped and draped the abdomen in sterile fashion. A timeout was performed. When we were all in agreement we began the procedure. Local anesthetic was injected at each trocar site. Within the umbilicus a small stab incision was made and a 5 mm Optiview trocar was used to enter into the abdomen under direct visualization. The liver was inspected and did not appear cirrhotic. An indirect RIGHT inguinal hernia was present with no incarcerated contents. 2 other 5 mm port were placed under direct visualization and the umbilical port was upsized to a 12 mm to facilitate passing the mesh and sutu res. The patient was placed in Trendelenburg and we had good visualization of the intra-abdominal contents, pelvis and the right pelvic sidewall. In standard/usual fashion I created a peritoneal flap. A combination of blunt and sharp dissection was performed using the LigaSure. I was able to reduce the hernia sac out of the inguinal canal. I developed my space all the way medial to beyond the pubic tubercle midline. Jaciel's ligament was clearly exposed. Hemostasis was excellent. A 3D max mesh was introduced in usual fashion and laid perfectly within the space I had created. The indirect, direct as well as the femoral spaces were all completely covered with significant and adequate overlay. I sutured a corner of the mesh to Jaciel's ligament with Vicryl and in the upper outer quadrant to the fascia with Vicryl to the mesh would not rotate or migrate. Next I closed my peritoneal flap with the V-loc. Hemostasis was excellent. I closed the skin with Monocryl and put Dermabond on top. The testicles were present in the scrotum bilateral after the procedure. The sponge, instrument and sharps count was correct x3 at the end of the procedure. The patient tolerated the procedure well and was taken to the PACU in hemodynamically stable condition. Date of Procedure: 05/21/24
--- NOTE | 2024-05-21 09:27 | W.PM.DSUDISC ---
Date of service: 05/21/24 Discharge Plan Disposition Patient Disposition: Home Condition: Good Discharge Details Attending Provider: Marco Rossi Primary Care Provider: Pattie Acosta Home Meds and New Rx's Prescriptions: No Action justyna sykeso 450 mg capsule 450 mg PO BID Rx Instructions: give with food (meal/snack) multivitamin [Daily Multiple] 1 EACH tablet 1 ea PO DAILY atorvastatin 10 mg tablet 10 mg PO QHS bupropion HCl 200 mg tablet sustained-release 12 hr 200 mg PO DAILY doxycycline hyclate 50 mg capsule 50 mg PO DAILY ibuprofen 600 MG tablet 600 mg PO TID PRN PRNQty: 90 3RF acetaminophen [Acetaminophen Extra Strength] 500 MG tablet 500 mg PO Q6H PRN PRNQty: 60 3RF Discharge Instructions Additional Instructions: FINDINGS: You had a large indirect hernia. It was repaired laparoscopically with a mesh. INSTRUCTIONS: Incisions: Keep clean and dry but they do not need to be covered. It is okay to shower but no tub bathing for 1 week. You can peel the glue off after 1 week. Activity: As tolerated. Light duty without any heavy lifting/pulling or pushing for 4-6 weeks. Diet: Regular diet as tolerated. Medications: Resume all of your usual/regular home medications. Follow-up: If you are having any issues or concerns call the surgery office. If you want to have a routine follow-up that is perfectly fine and you can call and schedule an. If everything is otherwise going well, you do not need to follow-up. Pain control: Take Tylenol, 1000 mg, every 6 hours on a schedule for the next 3 days. You can use ibuprofen in addition to Tylenol and use the narcotic medication only as necessary for pain preventing you from sleeping. Overall: Symptoms should not be worsening. If you have any difficulty breathing or you have return of symptoms of brought you to the hospital or your pain is otherwise worsening each day and you should call the doctor's office or come into the hospital to be checked out. Activity:: see instructions Diet:: As Tolerated
--- NOTE | 2024-05-21 10:33 | W.ANESPOSTOP ---
Postoperative Evaluation Date, Time and Location Date Performed: 05/21/24 Time Performed: 10:33 Patient Location: Day Surgery Unit Vital Signs Most Recent Imported Vital Signs: Most Recent Vital Signs Temp Pulse Resp BP Pulse Ox 36.0 C L 59 L 16 113/76 97 05/21/24 10:17 05/21/24 10:17 05/21/24 10:17 05/21/24 10:17 05/21/24 10:17 Pain Score Most Recent Pain Score: Most Recent Pain Score Pain Level 2 05/21/24 10:17 Assessment Mental Status: Awake (Alert & Oriented to Patient Baseline) Airway and Respiratory Function: Patent airway with normal (patient baseline) respiratory exam Cardiovascular Function: Hemodynamically Stable Hydration Status: Adequately Hydrated Nausea & Vomiting: No Nausea or Vomiting Pain: Pain is tolerable per patient Peripheral Nerve Block: Patient did not receive a nerve block
== END 2024-05-21 11:35 | disposition home or self-care (01) ==
PROVIDERS: PCP Physician Assistant Medical; Visit Provider Student in an Organized Health Care Education/Training Program
PROC: (CPT 49650; principal; 2024-05-21 07:30)
DX: K40.90 Unilateral inguinal hernia, without obstruction or gangrene, not specified as recurrent (principal); K21.9 Gastro-esophageal reflux disease without esophagitis; D01.3 Carcinoma in situ of anus and anal canal
CPT/HCPCS: 49650; 00123; C1781; C9290; J0131; J0665; J0690; J1100; J1885; J2003; J2405; J2704

== ENCOUNTER 2024-11-27 14:43 | Outpatient (REF) | payer MEDICARE, BC, SELFPAY ==
[2024-11-27 16:11] LABS: ALT 49 U/L (16-63); AST 31 U/L (15-37); Albumin 3.8 g/dL (3.4-5.0); Alkaline Phosphatase 76 U/L (46-116); Anion Gap 10.2 mmol/L (3-11); BUN 19 mg/dL (7-18); Bilirubin, Total 0.4 mg/dL (0.2-1.0); CO2 28.8 mmol/L (21.0-32.0); Calcium 8.8 mg/dL (8.5-10.1); Chloride 102 mmol/L (98-107); Cholesterol 169 mg/dL (<200); Estimated GFR 80.97 (mL/min/1.73m2); Glucose 95 mg/dL (74-106); HDL Cholesterol 41 mg/dL (>or=40); Sodium 141 mmol/L (136-145); Triglyceride 401 mg/dL (<150)
[2024-11-27 16:19] LABS: Hemoglobin A1C 5.9 % (<5.7)
[2024-11-27 16:23] LABS: LDL CHOLESTEROL 89 mg/dL (<100)
[2024-11-27 22:42] LABS: PSA, Screening 4.1 ng/mL (<=6.5)
== END 2024-11-27 14:44 | disposition home or self-care (01) ==
LOC: NCHCN 14:43
PROVIDERS: PCP Physician Assistant Medical; Visit Provider Physician Assistant Medical
DX: E78.5 Hyperlipidemia, unspecified (principal); Z13.1 Encounter for screening for diabetes mellitus; Z12.5 Encounter for screening for malignant neoplasm of prostate
CPT/HCPCS: 80053; 80061; 83721; 84153; 83036

== ENCOUNTER → 2024-12-25 10:46 | Outpatient (BNVA) | payer MEDICARE, BC, SELFPAY | PROVIDERS: PCP Physician Assistant Medical; Referring Provider Physician Assistant Medical; Visit Provider Surgery | DX: Z12.11 Encounter for screening for malignant neoplasm of colon (principal); Z80.0 Family history of malignant neoplasm of digestive organs | CPT/HCPCS: S0285 ==

== ENCOUNTER 2025-01-06 05:56 | Day surgery (SDC) | payer MEDICARE, BC, SELFPAY ==
[2025-01-06 06:30] VITALS: BP 109/74; PULSE 72; RESP 18; TEMP 36.4; O2SAT 99
[2025-01-06] MEDS: Lactated Ringers 1,000 ML 80 ML IV (06:54)
--- NOTE | 2025-01-06 07:01 | W.ANESPRE ---
General Info Date of Service Date Performed: 01/06/25 Height: 5 ft 9 in Weight: 77.3 kg Body Mass Index (BMI): 25.1 Surgical Procedure: Operation Date: 01/06/25 07:35 Proposed Procedure Side Surgeon lashawn Dee MD Meds Allergies and Home Medications Allergies Allergy/AdvReac Type Severity Reaction Status Date / Time Sulfa (Sulfonamide Allergy Unknown Swelling/Ed Verified 01/06/25 06:29 Antibiotics) rajeev hydrocodone AdvReac Severe nausea and Verified 01/06/25 06:29 vomiting oxycodone HCl (From Percocet) AdvReac Severe NAUSEA/VOMI Verified 01/06/25 06:29 TING Home Medication ?Medication ?Instructions ?Recorded multivitamin (Daily Multiple 1 ea PO DAILY 10/26/15 tablet) atorvastatin 10 mg tablet 10 mg PO QHS 04/18/24 bupropion HCl 200 mg tablet,12 hr 200 mg PO DAILY 04/18/24 sustained-release doxycycline hyclate 50 mg capsule 50 mg PO DAILY 04/18/24 omeprazole 20 mg capsule,delayed 20 mg PO DAILY 12/16/24 release bisacodyl 5 mg tablet,delayed 5 mg PO ONCE #4 tabs 01/01/25 release (Dulcolax (bisacodyl)) polyethylene glycol 3350 17 17 g PO ONCE #238 grams 01/01/25 gram/dose oral powder Current Visit Medications: Current Medications Generic Name Dose Route Start Last Admin Trade Name Freq PRN Reason Stop Dose Admin Ringer's Solution 1,000 mls @ 80 mls/hr 01/06/25 06:00 01/06/25 06:54 IV 01/06/25 23:59 80 mls/hr INFUSION BRINA Administration IV Miscellaneous Supplies 1 each 01/06/25 06:00 Iv Access IV 01/06/25 23:59 DIRECTED BRINA Sodium Biphosphate/Sodium Phosphate 133 ml 01/06/25 06:00 Na Phosphate Enema-Adult 133 Ml Btl HI 01/06/25 23:59 DIRECTED BRINA Sodium Chloride 0 ml 01/06/25 06:00 Normal Saline Flush 10 Ml Syr IV 01/06/25 23:59 PRN PRN Sodium Chloride 0 ml 01/06/25 06:00 Normal Saline 10 Ml Vial IJ 01/06/25 23:59 DIRECTED PRN Sterile Water 0 ml 01/06/25 06:00 Water,Injection,Sterile 10 Ml Vial IJ 01/06/25 23:59 DIRECTED PRN PFSH Active Problems Active Problems: Problem Status Onset Code Hernia, inguinal, unilateral Acute K40.90 Medical History Medical History Anal intraepithelial neoplasia III History of colon polyps Rosacea Benign prostatic hyperplasia Hyperlipidemia Difficult airway Small Palette Gastroesophageal reflux disease Rectal hemorrhage Carcinoma in situ of anus Medical History Comments:: small airway Surgical History Surgical History Hx of right inguinal hernia repair (~05/2024) History of prostate surgery Repair of inguinal hernia (04/26/10) LEFT Excision, Cervicle Lymph Nodes Tobacco Smoking/Tobacco Use Status: Former Tobacco Use Passive smoking exposure: No Alcohol Alcohol Intake: never Substance Use Substance use: Never Substance use type: does not use Vital Signs and Lab Results Vital Signs Most Recent Vital Signs in EMR: Most Recent Vital Signs Temp Pulse Resp BP Pulse Ox 36.4 C L 72 18 109/74 99 01/06/25 06:30 01/06/25 06:30 01/06/25 06:30 01/06/25 06:30 01/06/25 06:30 Anesthesia Assessment and Plan Anesthesia History Personal History: Other Family History: No Family History of Anesthesia Complications Exercise Tolerance Exercise Tolerance: Metabolic Equivalents>4 Pertinent Negatives Pertinent Negatives: No Symptoms of GERD Cardiac & Pulmonary Exam Cardiac Exam: Normal S1/S2 Heart Sounds Pulmonary Exam: Clear Bilateral Breath Sounds Implantable Cardiac Device Does patient have a Pacemaker or an ICD?: No Airway Exam Known Difficult Airway: No Mallampati Class: 2 Mouth Opening: Narrow (< 3cm) (high palate) Thyromental Distance: Greater than 3 cm Neck Range of Motion: Full ROM Neck Circumference: Normal Teeth Condition: Normal Dentition ASA Classification ASA Score: ASA 2 Emergency Case?: No NPO Status NPO Status: NPO Clears >2 hours, Solids >8 hours Anesthesia Plan Resuscitation Status: Full Code Anesthesia Technique: General Anesthesia Airway Planned: Natural Airway Monitors Used: Standard Monitors
[2025-01-06 07:02] VITALS: BMI 25.1
--- NOTE | 2025-01-06 07:59 | BOWEL_PTH ---
PATIENT: Ed Carrasco LOC: [facility] U#:[id number] AGE/SX: 69/M ROOM: RE01/06/[address]: Hetal Dee MD : 1955 BED: DIS: 01/06/2025 SPEC #: [id number] RECD: 01/06/25 12:44 STATUS: LINO REKaty #: [id number] KAPIL: 01/06/25 07:[address]: Hetal Dee DEPT: Surgical Specimen RECD BY: Daphne Limon ENTERED: 01/06/25 12:45 SP TYPE: Bowel OTHR DR: Pattie Acosta Tissues: 1 - BIOPSY BOWEL Procedures: GROSS AND MICRO LEVEL 4 Comments: [id number]
[2025-01-06 08:13] VITALS: BP 90/71; PULSE 77; RESP 16; TEMP 36.2; O2SAT 96
--- NOTE | 2025-01-06 08:20 | W.PM.DS.N ---
Date of service: 01/06/25 Time of Service: 08:21 DS: Diagnosis Discharge Diagnosis (1) Screening for colorectal cancer: Status: Acute (2) Rectal polyp: Status: Acute Discharge Plan Disposition Patient Disposition: Home Condition: Stable Discharge Details Attending Provider: Hetal Dee Primary Care Provider: Pattie Acosta Recommendations for Follow Up Recommended tests to be ordered by follow up provider: None Home Meds and New Rx's Prescriptions: No Action multivitamin [Daily Multiple] 1 EACH tablet 1 ea PO DAILY atorvastatin 10 mg tablet 10 mg PO QHS bupropion HCl 200 mg tablet sustained-release 12 hr 200 mg PO DAILY doxycycline hyclate 50 mg capsule 50 mg PO DAILY omeprazole 20 mg capsule,delayed release(DR/EC) 20 mg PO DAILY bisacodyl [Dulcolax (bisacodyl)] 5 mg tablet,delayed release (DR/EC) 5 mg PO ONCE Qty: 4 0RF Rx Instructions: Take per colonoscopy instructions provided by ordering providers office polyethylene glycol 3350 17 gram/dose powder 17 g PO ONCE Qty: 238 0RF Rx Instructions: Take per colonoscopy instructions provided by ordering providers office Discharge Instructions Additional Instructions: Colonoscopy prep was excellent. You have diverticulosis for which I recommend a high fiber diet. Diverticulosis is different than diverticulitis. You do not have diverticulitis today. See attached reading material on this common colon finding. Two small polyps seen and removed from rectum today. Timing of next colonoscopy will depend on the biopsy results of these polyps. Remainder of rectum was healthy with no signs of previous cancer. Office will notify you of the results within 2 weeks. Call if you have questions. Activity:: Activity as Tolerated Diet:: As Tolerated DS: Summary Time Spent with Patient providing and/or coordinating discharge services: Less than 30 minutes Status at Discharge Functional status at discharge: independent ambulation Overall status at discharge: patient is back to baseline Mental Status: mental status grossly normal Speech and Movement: speech and movement normal Mood: congruent mood Affect: normal affect Exam Psych Mental Status: mental status grossly normal Speech and Movement: speech and movement normal Mood: congruent mood Affect: normal affect DS: Data Vitals/I&O Vitals and I&O: Vital Signs Temperature 97.2 F L 01/06/25 08:13 Pulse 77 01/06/25 08:13 Pulse Rhythm Regular 01/06/25 06:30 Respiratory Rate 16 01/06/25 08:13 Respiratory Depth Deep 01/06/25 06:30 Blood Pressure 90/71 L 01/06/25 08:13 Pulse Oximetry 96 01/06/25 08:13 Oxygen Delivery Method Room Air 01/06/25 08:13 Oxygen Flow Rate 0 01/06/25 06:30 Pain Level 0 01/06/25 08:13 Intake & Output 01/05/25 01/05/25 01/06/25 11:59 23:59 11:59 Intake Total 600 / 600 Balance 600 / 600 Weight 170 lb 6.677 oz Intake: IV 600 / 600 Other: Emesis Description None PFSH All Active Problems Rectal polyp (Acute) Screening for colorectal cancer (Acute) Hernia, inguinal, unilateral (Acute) Medical History Anal intraepithelial neoplasia III History of colon polyps Rosacea Benign prostatic hyperplasia Hyperlipidemia Difficult airway Small Palette Gastroesophageal reflux disease Rectal hemorrhage Carcinoma in situ of anus Surgical History Hx of right inguinal hernia repair (~05/2024) History of prostate surgery Repair of inguinal hernia (04/26/10) LEFT Excision, Cervicle Lymph Nodes Social History Smoking/Tobacco Use Status: Former Tobacco Use Quit Date: 06/19/03 Smoking risk assessment performed?: Yes Alcohol Intake: never Drug use: Never Substance use type: does not use Housing: house Do you feel safe at home: Yes Do you feel safe in your relationship?: Yes Time Spent with Patient Time Spent with Patient: <45 minutes Time was spent: ordering medications,tests, procedures and indepentently interpreting results
--- NOTE | 2025-01-06 08:22 | W.ANESPOSTOP ---
Postoperative Evaluation Date, Time and Location Date Performed: 01/06/25 Time Performed: 08:22 Patient Location: Day Surgery Unit Vital Signs Most Recent Imported Vital Signs: Most Recent Vital Signs Temp Pulse Resp BP Pulse Ox 36.2 C L 77 16 90/71 L 96 01/06/25 08:13 01/06/25 08:13 01/06/25 08:13 01/06/25 08:13 01/06/25 08:13 Pain Score Most Recent Pain Score: Most Recent Pain Score Pain Level 0 01/06/25 08:13 Assessment Mental Status: Awake (Alert & Oriented to Patient Baseline) Airway and Respiratory Function: Patent airway with normal (patient baseline) respiratory exam Cardiovascular Function: Hemodynamically Stable Hydration Status: Adequately Hydrated Nausea & Vomiting: No Nausea or Vomiting Pain: Pt. Denies Any Pain Peripheral Nerve Block: Patient did not receive a nerve block
--- NOTE | 2025-01-06 08:25 | W.COLOREPORT ---
Date of service: 01/06/25 Time of Service: 08:25 Colonoscopy Report Date of procedure: 01/06/25 Pre-op diagnosis general: screening for colorectal cancer Post-op diagnosis procedure note: other (1. Multiple rectum polyps. 2. Sigmoid diverticulosis) Surgeon: Hetal Dee Anesthesia Type: MAC Estimated blood loss (mL): 2 Pathology: other (1. multiple rectum polyps) Indications: screening for colorectal cancer Prep: Miralax/Dulcolax Procedure Description: Consent obtained Time out performed Patient positioned in left lateral decubitus position Flexible colonoscopy inserted through the anus into the rectum and advanced to the cecum cecum identified by appendiceal orifice endoscope withdrawn and mucosa examined. Ascending, transverse, descending colon examined. Rectum examined. Endoscope retroflexed and the anal verge examined. No mass lesion, poyp, inflammatory change, or AVM seen in the colon. Sigmoid diverticulosis noted, small mouthed, moderate. No evidence of diverticulitis. In the proximal rectum at 25cm from the verge, two adjacent polyps were seen and excised together. Both sessile, one 3mm and one 6mm. Excised with cold forceps. Grade 1 internal hemorrhoids without complication. Normal anorectal junction, no evidence of prior cancer. ASSESSMENT AND PLAN: two sessile polyps of rectum seen and removed. Next colonoscopy timing will depend on pathology of the polyps. If at least one is adenomatous, 5 year follow up. If noth hyperplastic, 5 year follow up due to personal history of rectal cancer.
[2025-01-06 08:39] VITALS: BP 114/78; PULSE 60; RESP 18; TEMP 36.3; O2SAT 98
== END 2025-01-06 08:49 | disposition home or self-care (01) ==
PROVIDERS: PCP Physician Assistant Medical; Visit Provider Surgery
PROC: 0DJD8ZZ Inspection of Lower Intestinal Tract, Via Natural or Artificial Opening Endoscopic (ICD-10-PCS; CPT 45378; principal; 2025-01-06 07:30)
DX: Z12.11 Encounter for screening for malignant neoplasm of colon (principal); Z12.12 Encounter for screening for malignant neoplasm of rectum; D12.8 Benign neoplasm of rectum; K57.30 Diverticulosis of large intestine without perforation or abscess without bleeding; K64.8 Other hemorrhoids; Z85.038 Personal history of other malignant neoplasm of large intestine
CPT/HCPCS: 45380; 88305; J2003; J2704